=== PATIENT | male | born 1985 | race Caucasian/White ===

== ENCOUNTER → 2017-08-03 11:35 | Outpatient (CLI) | payer OTHER, SELFPAY ==
[2017-08-03 14:30] LABS: Hematocrit 50.9 % (40-54); Hemoglobin 17.5 g/dl (13.0-16.5); Mean Corp Hgb Conc 34.4 g/gl (32-36); Mean Corpuscular Hgb 29.3 pg (27.0-32.0); Mean Corpuscular Volume 85.1 fL (80-94); Mean Platelet Vol. 9.9 fl (6.2-12.0); Platelet Count 237 K/mm3 (150-450); RBC Distribution Width CV 13.2 % (11.6-14.6); RBC Distribution Width SD 40.9 fl (35.1-43.9); Red Blood Count 5.98 M/mm3 (4.6-6.2); White Blood Count 6.6 K/mm3 (4.4-11.0)
[2017-08-03 14:31] LABS: Scan Indicated on CBC? Y/N NO
[2017-08-03 14:59] LABS: ALB/GLOB Ratio 1.2 RATIO (0.9-2.4); AST(SGOT) 15 U/L (15-37); Alanine Aminotransfer ALT/SGPT 15 U/L (16-61); Alkaline Phosphatase 68 U/L (45-117); Anion Gap 4 (5-15); BUN 17 mg/dL (7-18); BUN/Creat Ratio 11.5 RATIO (10-20); Calcium,Total 8.8 mg/dL (8.5-10.1); Chloride 104 mmol/L (98-107); Cholesterol 147 mg/dL (200); Creatinine, Serum 1.48 mg/dL (0.70-1.30); EST Glomerular Filtration Rate 58 mL/min (>60); Est Glom Filt Rate - Afr Amer 70 mL/min (>60); Estradiol < 11.0 pg/mL; Follicle Stimulating Hormone < 0.2 mIU/mL; Free T3 3.3 pg/mL (2.18-3.98); Globulin 3.4 g/dL (2.2-4.2); Glucose 75 mg/dL (74-106); High Density Lipoprotein 28 mg/dL; Luteinizing Hormone < 0.2 mIU/mL; PSA,Total - Annual Screen 1.08 ng/mL (0.00-4.00); Protein, Total 7.4 g/dL (6.4-8.2); Sodium Level 138 mmol/L (136-145); T4 Free Direct 0.92 ng/dL (0.76-1.46); Triglycerides 166 mg/dL; Very Low Density Lipoprotein 33 mg/dL (5-40)
[2017-08-09 14:07] LABS: DHEA Sulfate 366.1 ug/dL (138.5-475.2); Testosterone, % Free 4.42 % (1.50-4.20)
[2017-08-10 09:26] LABS: Insulin Like Growth Factor 189 ng/mL (88-246); Testosterone, Total 923 ng/dL (264-916)
== END ==
PROVIDERS: Family Provider Family Medicine; PCP Family Medicine
DX: E34.9 Endocrine disorder, unspecified (principal)
CPT/HCPCS: 36415; 80053; 80061; 82627; 82670; 83001; 83002; 84153; 84305; 84402; 84403; 84439; 84443; 84481; 85027; 82626; G0103

== ENCOUNTER → 2018-04-17 10:22 | Outpatient (CLI) | payer OTHER, SELFPAY ==
[2018-04-17 12:04] LABS: Hematocrit 52.7 % (40-54); Hemoglobin 17.8 g/dl (13.0-16.5); Mean Corp Hgb Conc 33.8 g/gl (32-36); Mean Corpuscular Hgb 28.9 pg (27.0-32.0); Mean Corpuscular Volume 85.6 fL (80-94); Mean Platelet Vol. 9.6 fl (6.2-12.0); Platelet Count 246 K/mm3 (150-450); RBC Distribution Width CV 13.2 % (11.6-14.6); RBC Distribution Width SD 40.8 fl (35.1-43.9); Red Blood Count 6.16 M/mm3 (4.6-6.2); White Blood Count 8.3 K/mm3 (4.4-11.0)
[2018-04-17 12:05] LABS: Scan Indicated on CBC? Y/N NO
[2018-04-17 12:34] LABS: ALB/GLOB Ratio 1.1 RATIO (0.9-2.4); AST(SGOT) 25 U/L (15-37); Alanine Aminotransfer ALT/SGPT 21 U/L (16-61); Albumin, Serum 3.9 g/dL (3.2-5.0); Alkaline Phosphatase 68 U/L (45-117); Anion Gap 6 (5-15); BUN 18 mg/dL (7-18); BUN/Creat Ratio 11.3 RATIO (10-20); Calcium,Total 8.3 mg/dL (8.5-10.1); Chloride 106 mmol/L (98-107); Creatinine, Serum 1.59 mg/dL (0.70-1.30); EST Glomerular Filtration Rate 53 mL/min (>60); Est Glom Filt Rate - Afr Amer 65 mL/min (>60); Estradiol 37.7 pg/mL; Globulin 3.6 g/dL (2.2-4.2); Glucose 72 mg/dL (74-106); PSA,Total - Annual Screen 1.12 ng/mL (0.00-4.00); Potassium 3.9 mmol/L (3.5-5.1); Protein, Total 7.5 g/dL (6.4-8.2); Sodium Level 139 mmol/L (136-145)
[2018-04-23 09:07] LABS: Insulin Like Growth Factor 194 ng/mL (88-246); Testosterone, % Free 5.37 % (1.50-4.20); Testosterone, Free 40.76 ng/dL (5.00-21.00)
[2018-04-23 11:10] LABS: Sex Hormone-binding Globulin 12.3 nmol/L (16.5-55.9); Testosterone, Total 759 ng/dL (264-916)
== END ==
PROVIDERS: Family Provider Family Medicine; PCP Family Medicine
DX: E29.1 Testicular hypofunction (principal)
CPT/HCPCS: 36415; 80053; 82627; 82670; 84153; 84270; 84305; 84402; 84403; 85027; 82626; G0103

== ENCOUNTER → 2019-01-10 08:33 | Outpatient (CLI) | payer OTHER, SELFPAY ==
[2019-01-10 10:13] LABS: Homocysteine 7.6 umol/L (3.2-10.7)
[2019-01-10 10:15] LABS: Hematocrit 52.4 % (40-54); Hemoglobin 17.8 g/dL (13.0-16.5); Mean Corpuscular Hgb 28.6 pg (27.0-32.0); Mean Corpuscular Volume 84.2 fL (80-94); Mean Platelet Vol. 9.3 fl (6.2-12.0); Platelet Count 214 K/mm3 (150-450); RBC Distribution Width CV 12.4 % (11.6-14.6); RBC Distribution Width SD 37.7 fl (35.1-43.9); Red Blood Count 6.22 M/mm3 (4.6-6.2); White Blood Count 6.3 K/mm3 (4.4-11.0)
[2019-01-10 10:39] LABS: Hemoglobin A1c 5.4 % (4.2-6.3)
[2019-01-10 10:45] LABS: Progesterone Level 0.59 ng/mL (See Comment); Vitamin B12 918 pg/mL (211-911); Vitamin D,25 Hydroxy 24.5 ng/mL (29.95-100.01)
[2019-01-10 11:52] LABS: ALB/GLOB Ratio 1.1 RATIO (0.9-2.4); AST(SGOT) 13 U/L (15-37); Alanine Aminotransfer ALT/SGPT 15 U/L (16-61); Albumin, Serum 3.9 g/dL (3.2-5.0); Alkaline Phosphatase 61 U/L (45-117); Anion Gap 9 (5-15); BUN 13 mg/dL (7-18); BUN/Creat Ratio 8.9 RATIO (10-20); Calcium,Total 8.6 mg/dL (8.5-10.1); Chloride 105 mmol/L (98-107); Cholesterol 177 mg/dL (200); Creatinine, Serum 1.46 mg/dL (0.70-1.30); EST Glomerular Filtration Rate 59 mL/min (>60); Est Glom Filt Rate - Afr Amer 71 mL/min (>60); Estradiol 14.2 pg/mL; Follicle Stimulating Hormone < 0.2 mIU/mL; Free T3 3.6 pg/mL (2.18-3.98); Globulin 3.4 g/dL (2.2-4.2); Glucose 102 mg/dL (74-106); High Density Lipoprotein 34 mg/dL; Iron 103 ug/dL (65-175); Luteinizing Hormone < 0.2 mIU/mL; Magnesium 2.3 mg/dL (1.6-2.6); PSA,Total - Annual Screen 1.02 ng/mL (0.00-4.00); Potassium 4.1 mmol/L (3.5-5.1); Prolactin 11.2 ng/mL; Protein, Total 7.3 g/dL (6.4-8.2); Sodium Level 140 mmol/L (136-145); T4 Total, Thyroxin 6.9 ug/dL (4.5-12.1); Thyroid Stim Hormone (TSH) 1.18 uIU/mL (0.358-3.74); Triglycerides 109 mg/dL; Very Low Density Lipoprotein 22 mg/dL (5-40)
[2019-01-13 12:07] LABS: Insulin Like Growth Factor 186 ng/mL (88-246); Testosterone, % Free 4.63 % (1.50-4.20)
[2019-01-14 12:48] LABS: Sex Hormone-binding Globulin 11.2 nmol/L (16.5-55.9); Testosterone, Total 594 ng/dL (264-916)
== END ==
DX: R53.82 Chronic fatigue, unspecified (principal); M62.81 Muscle weakness (generalized); E66.9 Obesity, unspecified
CPT/HCPCS: 36415; 80053; 80061; 82306; 82533; 82607; 82627; 82670; 82746; 83001; 83002; 83036; 83090; 83540; 83735; 84144; 84146; 84153; 84270; 84305; 84402; 84403; 84436; 84439; 84443; 84481; 85027; 86140; 86141; 82626; G0103

== ENCOUNTER → 2020-03-09 13:23 | Outpatient (CLI) | payer OTHER, SELFPAY ==
--- NOTE | 2020-03-09 13:27 | CT_ITS ---
STUDY: CT ABDOMEN AND PELVIS WITH CONTRAST REASON FOR EXAM: Male, 34 years old. 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 Oral and amp; IV Gastrografin and amp; 100mL Isovue-300 was administered. Sagittal and coronal images were reconstructed. Individualized dose optimization techniques were used for this CT. COMPARISON: None. FINDINGS: The visualized lung bases are unremarkable. The visualized portions of the heart are within normal limits. Normal liver. Normal gallbladder and extrahepatic biliary system. Normal spleen. Normal pancreas. Normal bilateral adrenal glands. Normal right kidney. Normal left kidney. Normal visualized stomach. Normal small intestine. Normal colon. The appendix is visualized and appears normal. Normal abdominal aorta. Normal inferior vena cava. Normal retroperitoneum. Normal urinary bladder. FOOT SETTER shunt catheter seen extending to the pelvis. There is omentum fat stranding in the lower abdomen and pelvis may represent peritonitis. Normal abdominal wall. Normal osseous structures. CT/Abdomen/Pelvis WITH Contrast IMPRESSION: There is omentum fat stranding in the lower abdomen and pelvis may represent peritonitis. Electronically Signed: Maria C Stock, at 16:07 EST Tel , Service support ,
[2020-03-09 13:34] LABS: Absolute Lymphocyte Count 2.37 X10^3/uL (0.83-4.51); Absolute Neutrophil Count 5.4 X10^3/uL (2.0-7.7); Basophil# 0.06 X10^3/uL; Basophil% 0.7 % (0-1); Eosinophil# 0.27 X10^3/uL; Hematocrit 51.1 % (40-54); Hemoglobin 16.9 g/dL (13.0-16.5); Lymphocyte # 2.37 X10^3/ul (4.0); Lymphocyte % 26.5 % (19-41); Mean Corp Hgb Conc 33.1 g/dL (32-36); Mean Corpuscular Volume 84.7 fL (80-94); Mean Platelet Vol. 9.2 fl (6.2-12.0); Monocyte# 0.84 X10^3/uL; Monocyte% 9.4 % (0-10); NRBC Flagged by Analyzer 0 % (0-5); Neutrophil # 5.36 X10^3/uL (2.7-7.7); Neutrophil % 60.1 % (47-70); Platelet Count 256 K/mm3 (150-450); RBC Distribution Width CV 12.6 % (11.6-14.6); RBC Distribution Width SD 38.1 fl (35.1-43.9); Red Blood Count 6.03 M/mm3 (4.6-6.2); White Blood Count 8.9 K/mm3 (4.4-11.0)
[2020-03-09 13:55] LABS: ALB/GLOB Ratio 1.1 RATIO (0.9-2.4); AST(SGOT) 16 U/L (15-37); Alanine Aminotransfer ALT/SGPT 17 U/L (16-61); Albumin, Serum 3.9 g/dL (3.2-5.0); Alkaline Phosphatase 75 U/L (45-117); Anion Gap 6 (5-15); BUN 15 mg/dL (7-18); BUN/Creat Ratio 9.6 RATIO (10-20); Calcium,Total 8.6 mg/dL (8.5-10.1); Chloride 101 mmol/L (98-107); Creatinine, Serum 1.56 mg/dL (0.70-1.30); EST Glomerular Filtration Rate 54 mL/min (>60); Est Glom Filt Rate - Afr Amer 65 mL/min (>60); Globulin 3.6 g/dL (2.2-4.2); Glucose 136 mg/dL (74-106); Potassium 3.7 mmol/L (3.5-5.1); Protein, Total 7.5 g/dL (6.4-8.2); Sodium Level 137 mmol/L (136-145)
== END ==
PROVIDERS: PCP Family Medicine; Referring Provider Family Medicine; Visit Provider Family Medicine
DX: R10.32 Left lower quadrant pain (principal)
CPT/HCPCS: 36415; 74177; 80053; 85025; 86140; Q9967

== ENCOUNTER → 2020-03-12 10:42 | Outpatient (CLI) | payer OTHER, SELFPAY ==
[2020-03-12 12:22] LABS: Absolute Lymphocyte Count 1.53 X10^3/uL (0.83-4.51); Absolute Neutrophil Count 3.4 X10^3/uL (2.0-7.7); Basophil# 0.04 X10^3/uL; Basophil% 0.7 % (0-1); Eosinophil# 0.31 X10^3/uL; Eosinophils% 5.4 % (0-5); Hematocrit 50.9 % (40-54); Hemoglobin 16.8 g/dL (13.0-16.5); Lymphocyte # 1.53 X10^3/ul (4.0); Lymphocyte % 26.4 % (19-41); Mean Corpuscular Hgb 27.9 pg (27.0-32.0); Mean Corpuscular Volume 84.6 fL (80-94); Mean Platelet Vol. 9.1 fl (6.2-12.0); Monocyte# 0.51 X10^3/uL; Monocyte% 8.8 % (0-10); NRBC Flagged by Analyzer 0 % (0-5); Neutrophil # 3.38 X10^3/uL (2.7-7.7); Neutrophil % 58.4 % (47-70); Platelet Count 286 K/mm3 (150-450); RBC Distribution Width CV 12.3 % (11.6-14.6); RBC Distribution Width SD 37.5 fl (35.1-43.9); Red Blood Count 6.02 M/mm3 (4.6-6.2); White Blood Count 5.8 K/mm3 (4.4-11.0)
[2020-03-12 12:34] LABS: AST(SGOT) 15 U/L (15-37); Alanine Aminotransfer ALT/SGPT 16 U/L (16-61); Albumin, Serum 3.8 g/dL (3.2-5.0); Alkaline Phosphatase 76 U/L (45-117); Anion Gap 3 (5-15); BUN 14 mg/dL (7-18); BUN/Creat Ratio 8.4 RATIO (10-20); Chloride 104 mmol/L (98-107); Creatinine, Serum 1.67 mg/dL (0.70-1.30); EST Glomerular Filtration Rate 50 mL/min (>60); Est Glom Filt Rate - Afr Amer 60 mL/min (>60); Globulin 3.7 g/dL (2.2-4.2); Glucose 58 mg/dL (74-106); Potassium 3.9 mmol/L (3.5-5.1); Protein, Total 7.5 g/dL (6.4-8.2); Sodium Level 138 mmol/L (136-145)
== END ==
PROVIDERS: PCP Family Medicine; Visit Provider Family Medicine
DX: R10.9 Unspecified abdominal pain (principal)
CPT/HCPCS: 36415; 80053; 85025

== ENCOUNTER → 2020-03-12 11:26 | Outpatient (CLI) | payer OTHER, SELFPAY ==
--- NOTE | 2020-03-12 11:27 | CT_ITS ---
STUDY: CT ABDOMEN AND PELVIS WITH CONTRAST REASON FOR EXAM: Male, 34 years old. ABSCESS. POSS PERITONITIS 03/09/20 RADIATION DOSAGE (If Supplied By Facility): CTDIvol = ( 15.16 ) mGy, DLP = ( 1304.38 ) mGycm TECHNIQUE: Transaxial images were obtained from the dome of the diaphragm to the symphysis pubis with oral contrast. Oral and amp;amp; IV Gastrografin and amp;amp; 100mL Isovue-370 was administered. Sagittal and coronal images were reconstructed. Individualized dose optimization techniques were used for this CT. COMPARISON: 03/09/2020 FINDINGS: The visualized lung bases are unremarkable. The visualized portions of the heart are within normal limits. Right-sided ventricular peritoneal shunt terminates in right side of the pelvis without evidence of pseudocyst. No ascites. There is a decrease in the stranding of the fat in the anterior aspect of the pelvis when compared with prior study. No loculated fluid collection to suggest abscess. Normal liver. Normal gallbladder and extrahepatic biliary system. Normal spleen. Normal pancreas. Normal bilateral adrenal glands. Normal right kidney. Normal left kidney. Normal visualized stomach. Normal small intestine. Normal colon. The appendix is visualized and appears normal. Normal abdominal aorta. Normal inferior vena cava. Normal retroperitoneum. Normal urinary bladder. Normal abdominal wall. Normal osseous structures. CT/Abdomen/Pelvis WITH Contrast IMPRESSION: Normal enhanced CT of the abdomen and pelvis. No CT evidence of abscess. Electronically Signed: Deny Duenas MD at 14:28 EST Tel , Service support ,
== END ==
PROVIDERS: PCP Family Medicine; Referring Provider Family Medicine; Visit Provider Family Medicine
DX: R10.9 Unspecified abdominal pain (principal)
CPT/HCPCS: 74177; Q9967

== ENCOUNTER 2020-04-07 19:33 | Observation (INO) | payer OTHER, SELFPAY ==
[2020-04-07 19:33] VITALS: BP 143/87; PULSE 96; RESP 16; TEMP 36.6; O2SAT 98; BMI 36.6
--- NOTE | 2020-04-07 19:57 | ED.DCSUM_ITS ---
History of Present Illness Chief Complaint: Abd Pain Informant: Patient Narrative: Patient is a 34-year-old male who presents to emerge department for right lower quadrant abdominal pain. He states he has been having diffuse abdominal pain over the past 4 weeks. He actually had a few CT scans of his abdomen. He talked to his PCP today who referred him to the emergency department to be evaluated for appendicitis. He denies ever having this pain in the right lower quadrant. He feels like it is radiating down to his testicle. He has never had any kidney stones. Denies any urinary symptoms. No change in bowel habits. No nausea or vomiting. He states he has not had an appetite today. At rest he currently rates the pain as 4-5. With any palpation of the area does get up to a 10 out of 10. He has not tried taking anything for this. He denies any fevers or chills. 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 Past Medical History - Allergies and Home Meds Allergies/Adverse Reactions: Allergies ibuprofen Adverse Reaction (Verified 04/07/20 19:36) Other ULCERS IN/ON MOUTH AND PENIS Prior records reviewed: Yes Past Medical History: - - Traumatic head injury Smoking Status: Never smoker Review of Systems All systems negative except as indicated General: Denies: Chills, Fever, Sweats Eyes: Denies: Visual changes - bilaterally, Diplopia ENT: Denies: Rhinorrhea, Sore throat Cardiovascular: Denies: Chest pain, Palpitations Respiratory: Denies: Dyspnea, Cough, Dyspnea on exertion Gastrointestinal: Reports: Abdominal pain. Denies: Nausea, Vomiting, Diarrhea, Melena, Hematochezia Genitourinary: Denies: Dysuria, Hematuria, Frequency Musculoskeletal: Denies: Back pain, Extremity Pain Skin: Denies: Rash, Wounds Neurological: Denies: Headache, Weakness, Numbness Physical Exam Vital Signs/Narrative: Vital Signs Temp Pulse Resp BP Pulse Ox 04/07/20 19:33 97.8 F 96 16 143/87 H 98 Inital Vital Signs reviewed: Yes General: Well nourished, Well developed, No Acute Distress Head: Normocephalic, Atraumatic Eyes: Perrl, EOMI ENT: Moist mucous membranes, No rhinorrhea Neck: Supple, Nontender Cardiovascular: Regular rate, Regular rhythm, No murmurs Respiratory: No distress, CTA bilaterally, Chest nontender Abdomen: Soft, Nondistended, Normal bowel sounds, Tender - Right lower quadrant, Rebound tenderness. Negative for: Guarding, Psoas sign, Campuzano's sign Back: Nontender, Normal Inspection. Negative for: CVA tenderness Extremities: Nontender, No edema Skin: Normal color, No rash Neurological: Alert, Oriented x3, Cranial nerves II-XII grossly intact, Normal Strength, Normal Sensation Psychological: Normal affect, Normal Mood Diagnostic/Tx/Re-eval - Medical Decision Making Patient presents to the ED for right lower quadrant pain. He was sent in by his PCP to evaluate for appendicitis. On exam he does have rebound tenderness. CT scan did show a dilated appendix but no obvious acute inflammation surrounding it. Appendix actually does look similar to his previous CT scans. Does not have a high white count. He has been on antibiotic lately which could skew the lab work findings. Given his significant pain and rebound on exam I did contact the general surgeon Dr. Cuevas who came to bedside to evaluate him. At this time he believes that he should go to the OR to have this removed especially with his history of SOUND INSTALLATION WORKER shunt. He does not want to risk having this rupture. Patient is agreeable with this plan. He otherwise has been stable throughout ED stay. ED Disposition - Plan for ED Patient: Disposition: [facility] Diagnosis: Appendicitis, Right lower quadrant abdominal pain, ARLEN (acute kidney injury)
[2020-04-07 20:21] LABS: Bacteria 0 SEEN /hpf (None Seen); Mucous, Urine 0 SEEN /hpf (<or=2+); Red Blood Cells-Urine 0 SEEN /hpf (0-5); Squamous Epithelial Cells - UA 0 SEEN /hpf (0-5); White Blood Cells 0 SEEN /hpf (0-5)
[2020-04-07 20:26] LABS: Color, Urine Yellow (Yellow); Glucose, Dipstick Normal (Normal); Ketone-Dipstick Negative (Negative); Leukocyte Esterase-Dipstick 25 /ul (Negative); Nitrite-Dipstick Negative (Negative); Occult Blood-Urine Negative /ul (Negative); Protein-Dipstick Negative (Negative); Specific Gravity, Urine 1.015 (1.002-1.030); Urine Bilirubin Dipstick Negative (Negative); Urine Clarity Clear (Clear); Urine Urobilinogen Normal (Normal); Urine pH 6.5 (5.0 - 8.0)
[2020-04-07 20:26] LABS: Absolute Lymphocyte Count 2.04 X10^3/uL (0.83-4.51); Absolute Neutrophil Count 5.8 X10^3/uL (2.0-7.7); Basophil# 0.05 X10^3/uL; Basophil% 0.5 % (0-1); Eosinophil# 0.53 X10^3/uL; Eosinophils% 5.8 % (0-5); Hematocrit 48.5 % (40-54); Hemoglobin 16.3 g/dL (13.0-16.5); Lymphocyte # 2.04 X10^3/ul (4.0); Lymphocyte % 22.1 % (19-41); Mean Corp Hgb Conc 33.6 g/dL (32-36); Mean Corpuscular Hgb 27.8 pg (27.0-32.0); Mean Corpuscular Volume 82.6 fL (80-94); Monocyte# 0.72 X10^3/uL; Monocyte% 7.8 % (0-10); NRBC Flagged by Analyzer 0 % (0-5); Neutrophil # 5.84 X10^3/uL (2.7-7.7); Neutrophil % 63.5 % (47-70); Platelet Count 285 K/mm3 (150-450); RBC Distribution Width CV 12.2 % (11.6-14.6); RBC Distribution Width SD 37.3 fl (35.1-43.9); Red Blood Count 5.87 M/mm3 (4.6-6.2); White Blood Count 9.2 K/mm3 (4.4-11.0)
[2020-04-07 20:44] LABS: AST(SGOT) 14 U/L (15-37); Alanine Aminotransfer ALT/SGPT 16 U/L (16-61); Albumin, Serum 3.7 g/dL (3.2-5.0); Alkaline Phosphatase 88 U/L (45-117); Anion Gap 5 (5-15); BUN 18 mg/dL (7-18); BUN/Creat Ratio 9.8 RATIO (10-20); Calcium,Total 8.6 mg/dL (8.5-10.1); Chloride 104 mmol/L (98-107); Creatinine, Serum 1.84 mg/dL (0.70-1.30); EST Glomerular Filtration Rate 45 mL/min (>60); Est Glom Filt Rate - Afr Amer 54 mL/min (>60); Estimated Creatinine Clearance 63.33 ml/min; Globulin 3.8 g/dL (2.2-4.2); Glucose 111 mg/dL (74-106); Lipase 154 U/L (73-393); Potassium 3.8 mmol/L (3.5-5.1); Protein, Total 7.5 g/dL (6.4-8.2); Sodium Level 139 mmol/L (136-145)
--- NOTE | 2020-04-07 20:51 | CT_ITS ---
STUDY: CT ABDOMEN AND PELVIS WITHOUT CONTRAST REASON FOR EXAM: Male, 34 years old. RLQ PAIN X 4 WEEKS, HX OFFICE 365 CONSULTANT SHUNT RADIATION DOSAGE (If Supplied By Facility): CTDIvol = ( 16.59 ) mGy, DLP = ( 957.28 ) mGycm TECHNIQUE: Transaxial images were obtained from the dome of the diaphragm to the symphysis pubis without oral contrast, and without intravenous contrast. Sagittal and coronal images were reconstructed. Individualized dose optimization techniques were used for this CT. COMPARISON: CT of abdomen and pelvis dated March 12, 2020 FINDINGS: OFFICE 365 CONSULTANT shunt catheter seen in the right anterior abdominal wall entering the right mid abdomen region. Mild linear stranding and interstitial edema is present in the mesentery surrounding the bowel loops of the upper mid abdomen which is likely chronic. The appendix is opacified with some residual contrast that was administered on the prior CT of abdomen and pelvis study, and is gaseous distended up to 9.5 mm. However, the appearance is similar to the prior study and no periappendiceal inflammation is seen to suggest an acute process. The visualized lung bases are unremarkable. The visualized portions of the heart are within normal limits. Normal liver. Normal gallbladder and extrahepatic biliary system. Normal spleen. Normal pancreas. Normal bilateral adrenal glands. Normal right kidney. Normal left kidney. Normal visualized stomach. Normal small intestine. Normal colon. Normal abdominal aorta. Normal inferior vena cava. Normal retroperitoneum. Normal urinary bladder. Normal abdominal wall. Normal osseous structures. CT/Abdomen/Pelvis without Cont IMPRESSION: 1. OFFICE 365 CONSULTANT shunt catheter seen in the right anterior abdominal wall entering the right mid abdomen region. Mild linear stranding and interstitial edema is present in the mesentery surrounding the bowel loops of the upper mid abdomen which is likely chronic. 2. The appendix is opacified with some residual contrast that was administered on the prior CT of abdomen and pelvis study, and is gaseous distended up to 9.5 mm. However, the appearance is similar to the prior study and no periappendiceal inflammation is seen to suggest an acute process. Consultation with general surgery for management is recommended. There may be a component of chronic inflammation of the appendix. Electronically Signed: Geremias Burroughs MD at 21:38 EST , Service support ,
[2020-04-07] MEDS: 0.9% Normal Saline 1,000 ML 999 ML IV (21:04)
[2020-04-07 22:27] VITALS: BP 149/83; PULSE 94; RESP 16; O2SAT 98
--- NOTE | 2020-04-07 22:58 | CON.PCM_ITS ---
Problem List (1) Right lower quadrant abdominal pain Status: Acute (2) Acute appendicitis Status: Acute Qualifiers: Acute appendicitis type: with localized peritonitis Appendicitis gangrene presence: without gangrene Appendicitis perforation presence: without perforation Appendicitis abscess presence: without abscess Qualified Code(s): K35.30 - Acute appendicitis with localized peritonitis, without perforation or gangrene Reason for Consult Date of Consultation: 04/07/20 History of Present Illness: Patient is a 34-year-old male who presents to emerge department for right lower quadrant abdominal pain. He states he has been having diffuse abdominal pain over the past 4 weeks. He actually had a few CT scans of his abdomen. He talked to his PCP today who referred him to the emergency department to be evaluated for appendicitis. He denies ever having this pain in the right lower quadrant. He feels like it is radiating down to his testicle. He has never had any kidney stones. Denies any urinary symptoms. No change in bowel habits. No nausea or vomiting. He states he has not had an appetite today. At rest he currently rates the pain as 4-5. With any palpation of the area does get up to a 10 out of 10. He has not tried taking anything for this. He denies any fevers or chills. He does have a history of ASSEMBLER FINGER BUFFS shunt. CAT scan of the abdomen and pelvis showed: IMPRESSION: 1. ASSEMBLER FINGER BUFFS shunt catheter seen in the right anterior abdominal wall entering the right mid abdomen region. Mild linear stranding and interstitial edema is present in the mesentery surrounding the bowel loops of the upper mid abdomen which is likely chronic. 2. The appendix is opacified with some residual contrast that was administered on the prior CT of abdomen and pelvis study, and is gaseous distended up to 9.5 mm. However, the appearance is similar to the prior study and no periappendiceal inflammation is seen to suggest an acute process. Consultation with general surgery for management is recommended. There may be a component of chronic inflammation of the appendix. Past Medical History Allergies ibuprofen Adverse Reaction (Verified 04/07/20 19:36) Other ULCERS IN/ON MOUTH AND PENIS Home Medications: Ambulatory Orders Medication Instructions Recorded Some Kind Of Heart Medicine. 10/09/14 Cefdinir 300 mg PO 04/07/20 traMADol [Ultram (G)] 50 mg PO DAILY 04/07/20 Surgical History: - - Patient has had a ASSEMBLER FINGER BUFFS shunt placed approximately 2 months ago Smoking Status: Never smoker Tobacco Use: Cigarettes Review of Systems Constitutional: Denies: Chills, Fever, Weight Change Cardiovascular: Denies: Chest Pain, Chest Pressure, Chest Tightness, Palpitations Respiratory: Denies: Cough, Hemoptysis, Shortness of breath at rest, Shortness of breath upon exertion, Wheezing Gastrointestinal: Reports: Abdominal Pain - Pain is in the right lower quadrant Patient Problems: Active and Suspected Problems Right lower quadrant abdominal pain (Acute) Acute appendicitis (Acute) - Physical Exam Vitals/I&O's: Vital Signs Temp Pulse Resp BP Pulse Ox 97.8 F 94 16 149/83 H 98 04/07/20 19:33 04/07/20 22:27 04/07/20 22:27 04/07/20 22:27 04/07/20 22:27 Oxygen Delivery Method Room Air Weight: 277 lb 12.519 oz Body Mass Index (BMI) 36.6 Intake and Output for Last 24 Hours 04/05/20 04/06/20 04/07/20 23:59 23:59 23:59 Intake Total 1000 / 1000 Balance 1000 / 1000 General: Alert, Oriented x3 Lungs: Clear to auscultation Cardiovascular: Regular rate, Regular Rhythm, No murmurs Abdomen: Tender - He has right lower quadrant tenderness at McBurney's point with rebound tenderness he has a negative Rovsing sign. He has a negative heeltap sign. Extremities: No clubbing, No cyanosis, No edema Skin: No rashes, No breakdown Laboratory Results 04/07/20 20:00: Urine Color Yellow, Urine Clarity Clear, Urine pH 6.5, Ur Specific [place] 1.015, Urine Protein Negative, Urine Glucose (UA) Normal, Urine Ketones Negative, Urine Occult Blood Negative, Urine Nitrite Negative, Urine Bilirubin Negative, Urine Urobilinogen Normal, Ur Leukocyte Esterase 25 H, Urine RBC 0 SEEN, Urine WBC 0 SEEN, Ur Squamous Epith Cells 0 SEEN, Urine Bacteria 0 SEEN, Urine Mucus 0 SEEN 04/07/20 20:04: WBC 9.2, RBC 5.87, Hgb 16.3, Hct 48.5, MCV 82.6, MCH 27.8, MCHC 33.6, RDW Std Deviation 37.3, RDW Coeff of Sharon 12.2, Plt Count 285, MPV 9.0, Immature Gran % (Auto) 0.300, Neut % (Auto) 63.5, Lymph % (Auto) 22.1, [place] % (Auto) 7.8, Eos % (Auto) 5.8 H, Baso % (Auto) 0.5, Absolute Neuts (auto) 5.8, Absolute Lymphs (auto) 2.04, Nucleated RBC % 0 04/07/20 20:04: Sodium 139, Potassium 3.8, Chloride 104, Carbon Dioxide 30.0, Anion Gap 5, BUN 18, Creatinine 1.84 H, Estim Creat Clear Calc 63.33, Est GFR (MDRD) Af Amer 54 L, Est GFR (MDRD) Non-Af 45 L, BUN/Creatinine Ratio 9.8 L, Glucose 111 H, Calcium 8.6, Total Bilirubin 0.30, AST 14 L, ALT 16, Alkaline Phosphatase 88, Total Protein 7.5, Albumin 3.7, Globulin 3.8, Albumin/Globulin Ratio 1.0, Lipase 154 Assessment/Plan All Active Problems Right lower quadrant abdominal pain (Acute) Acute appendicitis (Acute) At this point I believe he does have an appendicitis. He has what appears to be a retrocecal appendix and what is most remarkable is that he still has contrast located within the appendix although it is been almost a month since his last CAT scan of the abdomen. Which leads me to believe that there is somehow some kind of blockage when I look at the CAT scan his appendix is clearly larger than his last CAT scan. I have explained the operation in terms that he will understand he does understand that bleeding and infection of the most common risk. He also understands though that he could have delayed abscesses which could require further surgeries and there is a chance that he could have injury to surrounding structures. He also understands that blood clots heart attacks pneumonia stroke are a possibility although very small. All questions asked were answered and he is willing to proceed. At the time of this dictation I do not know his Covid status but we will be getting a rapid test on him. Office Visits / Consults: [id number] IP Consult L4 - Modifier 57
[2020-04-07 23:18] VITALS: BP 147/96; PULSE 94; RESP 16; TEMP 37.1; O2SAT 95; BMI 36.6
[2020-04-07 23:22] VITALS: BP 147/96; PULSE 94; RESP 16; TEMP 37.1; O2SAT 97
--- NOTE | 2020-04-07 23:30 | APP_PTH ---
PATIENT: ARSENIO JUAREZ LOC: MS3 U#:[id number] AGE/SX: 34/M ROOM: MS317 RE04/08/[address]: Dr. Niranjan Cuevas MD : 1985 BED: 1 DIS: 04/08/2020 SPEC #: [id number] RECD: 04/08/20 07:27 STATUS: INA REQ #: [id number] ADEOLA: 04/07/20 23:[address]: Niranjan Cuevas DEPT: SURGICAL PATHOLOGY RECD BY: Marleen Mcdowell ENTERED: 04/08/20 08:08 SP TYPE: APPENDIX OTHR DR: Dr. Celestino Rodriges MD Tissues: Appendix, NOS Procedures: Surgery Specimen Level III HEADER OPERATION: Laparoscopic appendectomy PRE-OP DIAGNOSIS: Right lower quadrant abdominal pain; acute appendicitis TISSUE SUBMITTED: Appendix MICROSCOPIC DIAGNOSIS Appendix, appendectomy: Early acute appendicitis with fecal impaction. Distal appendiceal lumen with fibrofatty obliteration. AM:don 04/09/2020 MICROSCOPIC DESCRIPTION Slides are reviewed. GROSS DESCRIPTION Received in fixative is one container labeled with the patient's name and designated appendix. The specimen consists of a vermiform appendix with attached fibrofatty tissue measuring 9 cm in length and varying in diameter from 0.4 to 1.2 cm. No gross perforations are evident. Serial sections reveal fecal impaction. Ballast Regulator Operator sections are submitted in one cassette. / AM:don 04/08/20 TC:2 CPT: 98684
--- NOTE | 2020-04-07 23:48 | OP.PCM_ITS ---
Problem List (1) Right lower quadrant abdominal pain Status: Acute (2) Acute appendicitis Status: Acute Qualifiers: Acute appendicitis type: with localized peritonitis Appendicitis gangrene presence: without gangrene Appendicitis perforation presence: without perforation Appendicitis abscess presence: without abscess Qualified Code(s): K35.30 - Acute appendicitis with localized peritonitis, without perforation or gangrene Report of Operation Date of Procedure: 04/07/20 Pre-Operative Diagnosis: Acute appendicitis Post-Operative Diagnosis: Same Surgery/Procedure Performed:: Laparoscopic appendectomy Type of Anesthesia:: General Anesthesiologist: Brielle Bonds Specimen's removed: Appendix Estimated Blood Loss (mL): < 25 cc Description of Procedure: Patient was brought into the operating room. Placed in the supine position. Under excellent general trach intubation the abdomen was sterilely prepped and draped in usual fashion. Local was injected infraumbilically. Curvilinear incision was made. Dissection was carried down to the fascia. The fascia was grasped with a Saúl. Varies needle was placed inside the abdomen. The abdomen was insufflated 15 torr. A 10/12 trocar was placed without difficulty. As I got into the abdomen it was clear that there was some inflammatory process going on but it looked old and it looked chronic and I have a feeling it was directly related to his peritoneal shunt he had some significant adhesions in the lower left quadrant but I was able to place a stitch suprapubic #5 trocar and I decided to go superiorly and place another #5 trocar both of these under direct visualization without injury to underlying structures. Patient was placed in the headdown and rotated to the left position. Patient was noted to have an acute inflammatory appendix that had not ruptured yet. I was able to grasp this I came down on the mesoappendix with an Enseal I then transected the base of the appendix with a 45 linear cutter. I had excellent hemostasis. I placed a specimen a specimen bag and delivered through the umbilical port without difficulty. I irrigated the pelvis right lower quadrant good in the stasis was noted peritoneal shunt was identified it looked good it was freely floating there was no pus in the upper abdomen or in the pelvis. The small bowel appeared normal. I remove the trochars under direct visualization good in the stasis was noted. I closed the fascia the umbilical port with a [id number] stitch of 0 Vicryl. Skin incisions were closed with subcuticular stitches of 4- 0 Monocryl. Steri-Strips were applied sterile dressings were applied and the patient tolerated the procedure well. Inspection of the appendix showed acute inflammatory appendicitis with a fecalith located within the appendix itself. - Admit VTE Documentation VTE Present on Admission: No VTE Mechan Device Prophylaxis: SCD's VTE Pharm Prophylaxis ordered?: No Reason prophylaxis not ordered:: Treatment Not Indicated [id number]: [id number] Laparoscopy appendectomy
--- NOTE | 2020-04-07 23:50 | PCM.DC.APPY ---
Discharge Diet: Light diet - advance as tolerated - if you have questions about your diet instructions, please talk to you doctor. Discharge Activity: May Not Drive - for 3-5 days or while taking narcotic pain meds. May shower in (days): 1 Call your doctor if your incision/area has: Continuous Slow Oozing, Sudden Increased Bleeding, Increased Pain/ Swelling, Increased Redness, Foul Smelling Discharge Call your doctor if you observe: Fever of 101 or Higher Suture Line Care: Avoid Pulling/Pushing, Avoid Pinching/Bending Additional Dressing/Incision Instructions:: Keep dressing clean and dry. Change or remove dressing in 2 days. Leave steri strips for 1 week. May protect with a gauze bandaid. Medications to take at Discharge Some Kind Of Heart Medicine. 10/09/14 Cefdinir 300 mg PO DAILY 04/07/20 traMADol [Ultram (G)] 50 mg PO DAILY 04/07/20 traMADol [Ultram] 50 mg PO Q6H PRN PRN 6 Days #20 tablet 04/07/20 Allergies/Adverse Reactions: Allergies ibuprofen Adverse Reaction (Verified 04/07/20 19:36) Other ULCERS IN/ON MOUTH AND PENIS The following prescriptions were given: traMADol [Ultram] 50 mg PO Q6H PRN PRN 6 Days #20 tablet PRN Reason: Pain 1-10 Or Fever Transmission Status: Sent to [facility]/pharmacy #[id number] Primary Care Physician: Celestino Rodriges MD [Primary Care Provider] - Test Results: Test results from this visit will be discussed in further detail at your follow-up appointment, if applicable. Please Follow Up With: Niranjan Cuevas MD - [phone] When: Call to make a follow up appointment with your doctor in 1 week.
[2020-04-08] VITALS (8 sets, daily range): BP systolic 100–170; BP diastolic 61–107; PULSE 84–109; RESP 14–16; TEMP 36.3–37; O2SAT 85–98; BMI 36.9
[2020-04-08] MEDS: Bupivacaine Mpf 0.5% 30 ML VIAL (00:04)
--- NOTE | 2020-04-08 01:38 | PN_ITS ---
Patient Problems: Active and Suspected Problems Right lower quadrant abdominal pain (Acute) Acute appendicitis (Acute) Appendicitis (Acute) ARLEN (acute kidney injury) (Acute) Subjective: The patient is a 34 y/o M w/ PMHx: BETSY, Obesity, Hx Hypogonadism, Hx arachnoid cyst s/p intervention with SALICYLIC ACID BLENDER shunt placement, CKD stage II, Chronic neuropathy who presented to the [facility] ED on 04/07/20 with history of ongoing RLQ severe pain, progressively worsening over the last 4 weeks, initially more dull and diffuse eventually concentrating in the RLQ with sensation of radiation to his R testicle with poor appetite associated, pain rated 4-5/10 upon ED presentation but with evaluation it increases to 10/10. He denies any associated fever, c hills, nausea, emesis, alteration to his stool or urination patterns. Work-up in the ED included T 97.8, heart rate 96, BP 143/87, respiratory rate 16, 98% on room air, CBC with WC 9.2, hemoglobin 16.3, platelet 25 without marked shift, CMP with BUN/creatinine 18/1.84, glucose 111, unremarkable hepatic profile, lipase 154, urinalysis unremarkable appearing, CT abdomen and pelvis with noted SALICYLIC ACID BLENDER shunt catheter seen in the right anterior abdominal wall entering the right mid abdominal region with mild linear stranding and interstitial edema present in the mesentery surrounding the bowel loops of the upper mid abdomen reportedly possibly chronic, appendix opacified with some residual contrast likely administered on prior CT of the abdomen pelvis study and is gaseous distended up to 9.5 mm however however appearance similar to prior study with no periappendiceal inflammation with possibly a component of chronic inflammation of the appendix. Most recent CT abdomen and pelvis imaging on 03/09/2020 with repeat following on 03/12/2020. In the ED patient ministered normal saline. Patient eventually admitted to the medical surgical floor per Dr. Cuevas and taken to the OR on 04/08/2019 early a.m. with findings consistent with acute appendicitis now status post laparoscopic appendectomy. In the PACU patient with mildly elevated blood pressures therefore medical service consulted. Evelyn cortés is currently pain improved since initial ED presentation but states he is not exactly sure the level or the severity as he is not moved. Per discussion with PACU staff he was very irritable and noted significant intentions to leave as soon as he could walk. Patient denies fevers, chills, nausea, emesis, chest pain or dyspnea. Medical history: BETSY, obesity, history of hypogonadism, history arachnoid cyst, chronic kidney disease stage II per review of prior labs, chronic neuropathy. Surgical history: Status post SALICYLIC ACID BLENDER shunt. Family history: Patient denies any market maternal or paternal family history including heart disease, diabetes, cancer. Social history: Patient lives with his and 4 young children, denies any tobacco or alcohol use. Allergies: Ibuprofen Medications: Cefdinir 300 mg p.o. daily, tramadol 500 mg p.o. every 6 hours as needed pain. Objective: Physical Examination: General: awake, alert, oriented x 3 and cooperative, seated upright in the PACU bed in no apparent distress, currently calm but per discussion with PACU staff patient initially been very agitated. Skin: normal color, turgor, no icterus, cyanosis except noted incisions with dressings in place status post laparoscopic appendectomy, no significant drainage noted. HEENT: AT/NC, EOMI, PERRLA, MMM, no carotid bruits or JVD noted. Lungs: CTA bilaterally, moderate effort, mild decrease BL bases, no rales, ronchi or wheezing. Heart: Mildly tachycardic with regular rhythm; no gallop, rub audible. Abdomen: soft, obese, expected tenderness palpation especially given recent OR, dressings in place as noted with no significant drainage, expected moderate distention, decreased distant bowel sounds, unable to discern HSM secondary to acute presentation with recent OR with pain. Extremities: no cyanosis, clubbing, or edema. Neurological: patient awake, alert, oriented as noted; cognitive function appears to be improving, currently suspect near baseline intact, fatigued but answering questions and acting currently appropriately, was agitated previously per discussion with PACU staff; pupils equally reactive to light and accomodation; cranial nerves II-XII grossly normal, moving all 4 extremities, no focal deficits, strength moderately to severely global decreased given recent OR and anesthetics. Psychiatric: affect appears flat, fatigued, currently more calm as PACU had noted patient was very irritable previously, no acute evidence of depressive or anxiety feelings. Vitals/I&O's: Vital Signs Temp Pulse Resp BP Pulse Ox 97.8 F 94 16 160/107 H 95 04/08/20 01:15 04/08/20 01:15 04/08/20 01:15 04/08/20 01:15 04/08/20 01:15 Oxygen Flow Rate (L/min) 2 Oxygen Delivery Method Nasal Cannula Weight: 277 lb 12.519 oz Body Mass Index (BMI) 36.6 Intake and Output for Last 24 Hours 04/06/20 04/07/20 04/08/20 23:59 23:59 23:59 Intake Total 1000 / 1000 50 / 50 Balance 1000 / 1000 50 / 50 Microbiology Past 72 Hours 04/07/20 23:10 Mucosa - Nose SARS-CoV-2 Antigen (Rapid) - Final Laboratory Results 04/07/20 20:00: Urine Color Yellow, Urine Clarity Clear, Urine pH 6.5, Ur Specific [place] 1.015, Urine Protein Negative, Urine Glucose (UA) Normal, Urine Ketones Negative, Urine Occult Blood Negative, Urine Nitrite Negative, Urine Bilirubin Negative, Urine Urobilinogen Normal, Ur Leukocyte Esterase 25 H, Urine RBC 0 SEEN, Urine WBC 0 SEEN, Ur Squamous Epith Cells 0 SEEN, Urine Bacteria 0 SEEN, Urine Mucus 0 SEEN 04/07/20 20:04: WBC 9.2, RBC 5.87, Hgb 16.3, Hct 48.5, MCV 82.6, MCH 27.8, MCHC 33.6, RDW Std Deviation 37.3, RDW Coeff of [place] 12.2, Plt Count 285, MPV 9.0, Immature Gran % (Auto) 0.300, Neut % (Auto) 63.5, Lymph % (Auto) 22.1, [place] % (Auto) 7.8, Eos % (Auto) 5.8 H, Baso % (Auto) 0.5, Absolute Neuts (auto) 5.8, Absolute Lymphs (auto) 2.04, Nucleated RBC % 0 04/07/20 20:04: Sodium 139, Potassium 3.8, Chloride 104, Carbon Dioxide 30.0, Anion Gap 5, BUN 18, Creatinine 1.84 H, Estim Creat Clear Calc 63.33, Est GFR (MDRD) Af Amer 54 L, Est GFR (MDRD) Non-Af 45 L, BUN/Creatinine Ratio 9.8 L, Glucose 111 H, Calcium 8.6, Total Bilirubin 0.30, AST 14 L, ALT 16, Alkaline Phosphatase 88, Total Protein 7.5, Albumin 3.7, Globulin 3.8, Albumin/Globulin Ratio 1.0, Lipase 154 Current Medications Acetaminophen (Acetaminophen 325 Mg Tablet) 650 mg PO Q6H PRN PRN PRN Reason: Pain Score 1-10 Hydromorphone HCl (Hydromorphone 0.5 Mg/0.5 Ml Syringe) 0.5 - 1 mg IV Q2H PRN PRN PRN Reason: Pain Score 1-10 Hydromorphone HCl (Hydromorphone 1 Mg/Ml Syringe) 0.5 - 1 mg IV Q2H PRN PRN PRN Reason: Pain Score 1-10 Sodium Chloride () 1,000 mls @ 100 mls/hr IV .Q10H JIL Piperacillin Sod/Tazobactam (Sod 3.375 gm/ Sodium Chloride) 50 mls @ 12.5 mls/hr IV Q8 JIL Ondansetron HCl (Ondansetron 4 Mg/2 Ml Vial) 4 mg IV Q8H PRN PRN PRN Reason: NAUSEA Tramadol HCl (Tramadol 50 Mg Tablet) 50 mg PO Q6H PRN PRN PRN Reason: Pain Score 1-10 STROKE Vital Signs/Narrative: Vital Signs Temp Pulse Resp BP Pulse Ox 04/08/20 01:15 97.8 F 94 16 160/107 H 95 04/08/20 01:00 104 H 16 164/104 H 92 04/08/20 00:45 97.4 F L 109 H 16 170/102 H 85 04/07/20 23:22 98.8 F 94 16 147/96 H 97 04/07/20 23:18 98.8 F 94 16 147/96 H 95 04/07/20 22:27 94 16 149/83 H 98 Medical Necessity - Tobacco Use Smoking Status: Never smoker Tobacco Use: Cigarettes Assessment/Plan All Active Problems Right lower quadrant abdominal pain (Acute) Acute appendicitis (Acute) Appendicitis (Acute) ARLEN (acute kidney injury) (Acute) The patient is a 34 y/o M w/ PMHx: BETSY, Obesity, Hx Hypogonadism, Hx arachnoid cyst s/p intervention with SALICYLIC ACID BLENDER shunt placement, CKD stage II, Chronic neuropathy who presents to the [facility] ED on 04/07/20 with history of ongoing RLQ severe pain, progressively worsening over the last 4 weeks, initially more dull and diffuse eventually concentrating in the RLQ status post 04/08/2020 appendectomy with findings consistent with acute appendicitis. 1. Acute intractable right lower quadrant pain secondary to acute appendicitis: CT abdomen and pelvis with noted SALICYLIC ACID BLENDER shunt catheter seen in the right anterior abdominal wall entering the right mid abdominal region with mild linear stranding and interstitial edema present in the mesentery surrounding the bowel loops of the upper mid abdomen reportedly possibly chronic, appendix opacified with some residual contrast likely administered on prior CT of the abdomen pelvis study and is gaseous distended up to 9.5 mm however however appearance similar to prior study with no periappendiceal inflammation with possibly a component of chronic inflammation of the appendix. Patient admitted to medical surgical floor per primary physician Dr. Cuevas, status post OR 04/08/2020 status post laparoscopic appendectomy for acute appendicitis, diet, antiemetics, pain regimen per primary service discretion. 2. Elevated BP without hypertensive diagnosis: Patient with elevated BPs in the PACU with systolics 140s and diastolics 90-100, concern per primary service with consultation to medical service, will have as needed IV hydralazine especially given recent OR, add oral regimen if becomes appropriate, in the interim as needed agents only. 3. Chronic Kidney Disease Stage II with Acute Renal Insufficiency secondary to #1: Admission BUN/Cr 18/1.84, baseline renal function appears to be 1.4-1.6, most recently 03/12/2020 1.67, has been steadily increasing since 2016 per review but again these are only points in time, continue judicious hydration with planned repeat BMP in AM. 4. History of arachnoid cyst: s/p SALICYLIC ACID BLENDER shunt prior, encourage continued routine follow-up with his neurologist/neurosurgeon per their discretion. 5. History of hypogonadism: Patient previously on testosterone supplementation per review of medication records. Encourage continued outpatient follow-up. 6. BETSY: Patient admits to BETSY history but denies any usage of CPAP or BiPAP. 7. DVT prophylaxis: SCDs, defer chemoprophylaxis given pending surgery intervention. Inpatient E&M: [id number] [facility] L3
[2020-04-08] MEDS: 0.9% Normal Saline 1,000 ML 100 ML IV (01:46)
[2020-04-08] MEDS: HYDROmorphone 1 MG/ML Syringe IV (02:25)
[2020-04-08] MEDS: 0.9% Saline Lock 10 ML Syringe IV (05:56)
[2020-04-08] MEDS: HYDROmorphone 0.5 MG/0.5 ML SYRINGE IV (05:56)
[2020-04-08 06:56] LABS: Absolute Lymphocyte Count 0.59 X10^3/uL (0.83-4.51); Absolute Neutrophil Count 5.4 X10^3/uL (2.0-7.7); Basophil# 0.02 X10^3/uL; Basophil% 0.3 % (0-1); Eosinophil# 0.01 X10^3/uL; Eosinophils% 0.2 % (0-5); Hematocrit 49.7 % (40-54); Hemoglobin 16.4 g/dL (13.0-16.5); Lymphocyte # 0.59 X10^3/ul (4.0); Lymphocyte % 9.7 % (19-41); Mean Corpuscular Volume 81.9 fL (80-94); Mean Platelet Vol. 8.8 fl (6.2-12.0); Monocyte# 0.06 X10^3/uL; NRBC Flagged by Analyzer 0 % (0-5); Neutrophil # 5.38 X10^3/uL (2.7-7.7); Neutrophil % 88.6 % (47-70); POSITIVE DIFFERENTIAL YES; Platelet Count 265 K/mm3 (150-450); RBC Distribution Width CV 12.1 % (11.6-14.6); RBC Distribution Width SD 36.4 fl (35.1-43.9); Red Blood Count 6.07 M/mm3 (4.6-6.2); White Blood Count 6.1 K/mm3 (4.4-11.0)
[2020-04-08 06:57] LABS: Differential Indicated SCAN CRITERIA MET
[2020-04-08 07:14] LABS: Differential Comment SCANNED
[2020-04-08 07:21] LABS: Anion Gap 4 (5-15); BUN 15 mg/dL (7-18); BUN/Creat Ratio 9.6 RATIO (10-20); Calcium,Total 8.4 mg/dL (8.5-10.1); Chloride 106 mmol/L (98-107); Creatinine, Serum 1.56 mg/dL (0.70-1.30); EST Glomerular Filtration Rate 54 mL/min (>60); Est Glom Filt Rate - Afr Amer 65 mL/min (>60); Estimated Creatinine Clearance 74.69 ml/min; Glucose 140 mg/dL (74-106); Potassium 4.6 mmol/L (3.5-5.1); Sodium Level 137 mmol/L (136-145)
[2020-04-08] MEDS: traMADol 50 MG Tablet PO (10:46)
--- NOTE | 2020-04-08 10:47 | PCM.PN.SRG ---
Patient Problems: Active and Suspected Problems Right lower quadrant abdominal pain (Acute) Acute appendicitis (Acute) Appendicitis (Acute) ARLEN (acute kidney injury) (Acute) Subjective: Patient evaluated resting comfortably in bed. He notes very minimal amount of incisional discomfort. He denies nausea, vomiting, fever. He is urinating well. - Physical Exam Vitals/I&O's: Vital Signs Temp Pulse Resp BP Pulse Ox 98.0 F 88 16 100/61 94 04/08/20 09:12 04/08/20 09:12 04/08/20 09:12 04/08/20 09:12 04/08/20 09:12 Oxygen Flow Rate (L/min) 2 Oxygen Delivery Method Room Air Weight: 279 lb 15.793 oz Body Mass Index (BMI) 36.9 Intake and Output for Last 24 Hours 04/06/20 04/07/20 04/08/20 23:59 23:59 23:59 Intake Total 1000 / 1000 900 / 900 Balance 1000 / 1000 900 / 900 General: Alert, Oriented x3, Cooperative Abdomen: Bowel Sounds Present, Soft, Non Tender, - - Incisions c/d/i. No erythema. Small amount of dry blood on the superior incision. Microbiology Past 72 Hours 04/07/20 23:10 Mucosa - Nose SARS-CoV-2 Antigen (Rapid) - Final Laboratory Results 04/07/20 20:00: Urine Color Yellow, Urine Clarity Clear, Urine pH 6.5, Ur Specific [place] 1.015, Urine Protein Negative, Urine Glucose (UA) Normal, Urine Ketones Negative, Urine Occult Blood Negative, Urine Nitrite Negative, Urine Bilirubin Negative, Urine Urobilinogen Normal, Ur Leukocyte Esterase 25 H, Urine RBC 0 SEEN, Urine WBC 0 SEEN, Ur Squamous Epith Cells 0 SEEN, Urine Bacteria 0 SEEN, Urine Mucus 0 SEEN 04/07/20 20:04: WBC 9.2, RBC 5.87, Hgb 16.3, Hct 48.5, MCV 82.6, MCH 27.8, MCHC 33.6, RDW Std Deviation 37.3, RDW Coeff of [place] 12.2, Plt Count 285, MPV 9.0, Immature Gran % (Auto) 0.300, Neut % (Auto) 63.5, Lymph % (Auto) 22.1, [place] % (Auto) 7.8, Eos % (Auto) 5.8 H, Baso % (Auto) 0.5, Absolute Neuts (auto) 5.8, Absolute Lymphs (auto) 2.04, Nucleated RBC % 0 04/07/20 20:04: Sodium 139, Potassium 3.8, Chloride 104, Carbon Dioxide 30.0, Anion Gap 5, BUN 18, Creatinine 1.84 H, Estim Creat Clear Calc 63.33, Est GFR (MDRD) Af Amer 54 L, Est GFR (MDRD) Non-Af 45 L, BUN/Creatinine Ratio 9.8 L, Glucose 111 H, Calcium 8.6, Total Bilirubin 0.30, AST 14 L, ALT 16, Alkaline Phosphatase 88, Total Protein 7.5, Albumin 3.7, Globulin 3.8, Albumin/Globulin Ratio 1.0, Lipase 154 04/08/20 06:37: WBC 6.1, RBC 6.07, Hgb 16.4, Hct 49.7, MCV 81.9, MCH 27.0, MCHC 33.0, RDW Std Deviation 36.4, RDW Coeff of [place] 12.1, Plt Count 265, MPV 8.8, Immature Gran % (Auto) 0.200, Neut % (Auto) 88.6 H, Lymph % (Auto) 9.7 L, [place] % (Auto) 1.0, Eos % (Auto) 0.2, Baso % (Auto) 0.3, Absolute Neuts (auto) 5.4, Absolute Lymphs (auto) 0.59 L, Nucleated RBC % 0, Differential Comment SCANNED 04/08/20 06:37: Sodium 137, Potassium 4.6, Chloride 106, Carbon Dioxide 27.0, Anion Gap 4 L, BUN 15, Creatinine 1.56 H, Estim Creat Clear Calc 74.69, Est GFR (MDRD) Af Amer 65, Est GFR (MDRD) Non-Af 54 L, BUN/Creatinine Ratio 9.6 L, Glucose 140 H, Calcium 8.4 L Current Medications Acetaminophen (Acetaminophen 325 Mg Tablet) 650 mg PO Q6H PRN PRN PRN Reason: Pain Score 1-10 Hydralazine HCl (Hydralazine 20 Mg/Ml Vial) 10 mg IV Q4H PRN PRN PRN Reason: SBP > 160 Hydromorphone HCl (Hydromorphone 0.5 Mg/0.5 Ml Syringe) 0.5 - 1 mg IV Q2H PRN PRN PRN Reason: Pain Score 1-10 Last Admin: 04/08/20 05:56 Dose: 0.5 mg Documented by: Hydromorphone HCl (Hydromorphone 1 Mg/Ml Syringe) 0.5 - 1 mg IV Q2H PRN PRN PRN Reason: Pain Score 1-10 Last Admin: 04/08/20 02:25 Dose: 1 mg Documented by: Sodium Chloride () 1,000 mls @ 100 mls/hr IV .Q10H JIL Last Infusion: 04/08/20 09:46 Dose: 100 mls/hr Documented by: Piperacillin Sod/Tazobactam (Sod 3.375 gm/ Sodium Chloride) 50 mls @ 12.5 mls/hr IV Q8 JIL Last Infusion: 04/08/20 09:46 Dose: Infused Documented by: Ondansetron HCl (Ondansetron 4 Mg/2 Ml Vial) 4 mg IV Q8H PRN PRN PRN Reason: NAUSEA Sodium Chloride (0.9% Saline Lock 10 Ml Syringe) 10 - 40 ml IV UD PRN PRN Reason: SALINE FLUSH Last Admin: 04/08/20 05:56 Dose: 10 ml Documented by: Tramadol HCl (Tramadol 50 Mg Tablet) 50 mg PO Q6H PRN PRN PRN Reason: Pain Score 1-10 Medical Necessity - Tobacco Use Smoking Status: Never smoker Tobacco Use: Chew Assessment/Plan All Active Problems Right lower quadrant abdominal pain (Acute) Acute appendicitis (Acute) Appendicitis (Acute) ARLEN (acute kidney injury) (Acute) I am following this patient in conjunction with Dr. Cuevas S/p laparoscopic appendectomy Patient progressing very well Ready for discharge Will send home on 1 week worth of Augmentin Inpatient E&M: [id number] Subs Hosp L1 - No charge/post-op
--- NOTE | 2020-04-08 11:05 | CASEMGMT ---
ORLY CM in to complete face to face assessment with patient. Patient is getting ready to discharge to home. Patient is independent, has PCP, and has to assist at home if needed. Patient denies needs at discharge. Patient to discharge home with family support and follow-up plans in place.
--- NOTE | 2020-04-08 14:48 | PCM.HOSP.N ---
Hospitalist Note Patient was seen and examined Patient was seen earlier by nighttime hospitalist. Heart rate and blood pressure in normal range. No fever. Patient has history of sleep apnea and has CPAP but does not use it. On exam Lungs: Air entry bilateral equal. No crepitation/rhonchi Heart: S1-S2 regular no murmur/gallop/rub Abdomen: Mild tenderness over right lower quadrant. Bowel sounds sluggish. Mild expected distention after lap appendectomy. Port dressing is dry Patient is stable to be discharged. Please see consult note earlier by the nighttime hospitalist.
== END 2020-04-08 11:05 | disposition home or self-care (01) ==
LOC: ED 20:28 → AC 04-08 00:53 → MS3 04-09 11:16
PROVIDERS: Admitting Provider Surgery; Emergency Provider Emergency Medicine; PCP Family Medicine; Visit Provider Surgery
PROC: 0DTJ4ZZ Resection of Appendix, Percutaneous Endoscopic Approach (ICD-10-PCS; CPT 44970; principal; 2020-04-07 23:30)
DX: K35.30 Acute appendicitis with localized peritonitis, without perforation or gangrene (principal); K56.41 Fecal impaction; N17.9 Acute kidney failure, unspecified; E66.9 Obesity, unspecified; G47.33 Obstructive sleep apnea (adult) (pediatric); Z68.36 Body mass index [BMI] 36.0-36.9, adult; N18.2 Chronic kidney disease, stage 2 (mild); G62.9 Polyneuropathy, unspecified; E29.1 Testicular hypofunction; R03.0 Elevated blood-pressure reading, without diagnosis of hypertension; F17.220 Nicotine dependence, chewing tobacco, uncomplicated; Z98.2 Presence of cerebrospinal fluid drainage device
CPT/HCPCS: 44970; 36415; 74176; 80048; 80053; 81001; 83690; 85025; 87426; 88304; 94762; 96361; 96365; 96366; 96375; 96376; 99218; 99284; 99406; J7030; J7040; A4216; C1760; G0378; J2405

== ENCOUNTER → 2020-04-27 08:48 | Outpatient (CLI) | payer OTHER, SELFPAY ==
[2020-04-27 09:49] LABS: Absolute Lymphocyte Count 1.37 X10^3/uL (0.83-4.51); Absolute Neutrophil Count 4.6 X10^3/uL (2.0-7.7); Basophil# 0.04 X10^3/uL; Basophil% 0.6 % (0-1); Eosinophil# 0.27 X10^3/uL; Hematocrit 47.7 % (40-54); Hemoglobin 15.6 g/dL (13.0-16.5); Lymphocyte # 1.37 X10^3/ul (4.0); Lymphocyte % 20.1 % (19-41); Mean Corp Hgb Conc 32.7 g/dL (32-36); Mean Corpuscular Hgb 26.6 pg (27.0-32.0); Mean Corpuscular Volume 81.3 fL (80-94); Mean Platelet Vol. 8.9 fl (6.2-12.0); Monocyte# 0.51 X10^3/uL; Monocyte% 7.5 % (0-10); NRBC Flagged by Analyzer 0 % (0-5); Neutrophil % 67.4 % (47-70); Platelet Count 315 K/mm3 (150-450); RBC Distribution Width CV 12.5 % (11.6-14.6); RBC Distribution Width SD 36.9 fl (35.1-43.9); Red Blood Count 5.87 M/mm3 (4.6-6.2); White Blood Count 6.8 K/mm3 (4.4-11.0)
[2020-04-27 10:24] LABS: Anion Gap 4 (5-15); BUN 9 mg/dL (7-18); BUN/Creat Ratio 6.3 RATIO (10-20); Calcium,Total 8.7 mg/dL (8.5-10.1); Chloride 104 mmol/L (98-107); Creatinine, Serum 1.42 mg/dL (0.70-1.30); EST Glomerular Filtration Rate 60 mL/min (>60); Est Glom Filt Rate - Afr Amer 73 mL/min (>60); Glucose 138 mg/dL (74-106); Potassium 3.8 mmol/L (3.5-5.1); Sodium Level 137 mmol/L (136-145)
== END ==
PROVIDERS: PCP Family Medicine; Visit Provider Family Medicine
DX: R68.83 Chills (without fever) (principal); E29.1 Testicular hypofunction
CPT/HCPCS: 36415; 80048; 84403; 85025

== ENCOUNTER → 2020-05-04 15:19 | Outpatient (CLI) | payer OTHER, SELFPAY ==
[2020-05-04 18:03] LABS: Absolute Lymphocyte Count 2.27 X10^3/uL (0.83-4.51); Basophil# 0.05 X10^3/uL; Basophil% 0.6 % (0-1); Eosinophils% 4.7 % (0-5); Hematocrit 48.1 % (40-54); Hemoglobin 15.8 g/dL (13.0-16.5); Lymphocyte # 2.27 X10^3/ul (4.0); Lymphocyte % 26.6 % (19-41); Mean Corp Hgb Conc 32.8 g/dL (32-36); Mean Corpuscular Volume 82.2 fL (80-94); Mean Platelet Vol. 9.1 fl (6.2-12.0); Monocyte# 0.79 X10^3/uL; Monocyte% 9.3 % (0-10); NRBC Flagged by Analyzer 0 % (0-5); Neutrophil # 4.97 X10^3/uL (2.7-7.7); Neutrophil % 58.3 % (47-70); Platelet Count 352 K/mm3 (150-450); RBC Distribution Width CV 12.7 % (11.6-14.6); RBC Distribution Width SD 37.8 fl (35.1-43.9); Red Blood Count 5.85 M/mm3 (4.6-6.2); White Blood Count 8.5 K/mm3 (4.4-11.0)
[2020-05-04 18:40] LABS: ALB/GLOB Ratio 0.8 RATIO (0.9-2.4); AST(SGOT) 15 U/L (15-37); Alanine Aminotransfer ALT/SGPT 14 U/L (16-61); Albumin, Serum 3.6 g/dL (3.2-5.0); Alkaline Phosphatase 91 U/L (45-117); Anion Gap 7 (5-15); BUN 18 mg/dL (7-18); BUN/Creat Ratio 12.1 RATIO (10-20); Calcium,Total 8.8 mg/dL (8.5-10.1); Chloride 103 mmol/L (98-107); Creatinine, Serum 1.49 mg/dL (0.70-1.30); EST Glomerular Filtration Rate 57 mL/min (>60); Est Glom Filt Rate - Afr Amer 69 mL/min (>60); Globulin 4.3 g/dL (2.2-4.2); Glucose 93 mg/dL (74-106); Lipase 148 U/L (73-393); Protein, Total 7.9 g/dL (6.4-8.2); Sodium Level 138 mmol/L (136-145)
== END ==
PROVIDERS: PCP Family Medicine; Referring Provider Family Medicine; Visit Provider Family Medicine
DX: R10.9 Unspecified abdominal pain (principal)
CPT/HCPCS: 36415; 80053; 83690; 85025

== ENCOUNTER → 2020-05-05 11:08 | Outpatient (CLI) | payer OTHER, SELFPAY ==
[2020-04-08 01:45] VITALS: BMI 36.9
--- NOTE | 2020-05-05 11:10 | US_ITS ---
STUDY: ABDOMINAL ULTRASOUND - RIGHT UPPER QUADRANT REASON FOR VISIT: Male, 34 years old RUQ pain TECHNIQUE: Ultrasound evaluation of the right upper quadrant was performed with real-time and static patel-scale imaging. TECHNICAL QUALITY: Adequate. COMPARISON: None. FINDINGS: Liver: The liver measures 17 cm. There is normal echogenicity of the liver. The bile ducts are within normal limits. There is hepatic color flow. The direction of portal flow is hepatopetal. There is no demonstrated mass lesion. Gallbladder: Normal distended gallbladder. The gallbladder wall measures 3.0 mm. There is a positive sonographic Campuzano''s sign. There is no pericholecystic fluid. There are no gallstones. Common Bile Duct (C.B.D.): The common bile duct measures 4.3 mm. Pancreas: There is nonvisualization of the pancreas due to overlying bowel gas. Right Kidney: Normal size of the right kidney. The right kidney measures 11.3 cm x 4.9 cm x 5.9 cm. Normal renal cortex. The right cortex measures 1.7 cm. There is no demonstrated renal mass or cyst. There is no right hydronephrosis. US/Abdomen Limited IMPRESSION: Positive sonographic CAMPUZANO sign. No evidence of gallstones. Electronically Signed: Nnamdi Bergeron MD at 12:24 EST , Service support ,
== END ==
PROVIDERS: PCP Family Medicine; Referring Provider Family Medicine; Visit Provider Family Medicine
DX: R10.9 Unspecified abdominal pain (principal)
CPT/HCPCS: 76705

== ENCOUNTER 2020-05-06 18:31 | Emergency (ER) | payer OTHER, SELFPAY ==
[2020-05-06 18:32] VITALS: BP 159/82; PULSE 102; RESP 18; TEMP 35.8; O2SAT 97; BMI 36.0
--- NOTE | 2020-05-06 18:52 | ED.RN ---
pt didnt want to wait to be seen so he left to go to [facility] or [facility]
== END 2020-05-06 18:52 ==
LOC: ED 18:49
PROVIDERS: Emergency Provider Student in an Organized Health Care Education/Training Program; PCP Family Medicine
DX: R10.9 Unspecified abdominal pain (principal)

== ENCOUNTER 2020-05-06 22:13 | Emergency (ER) | payer OTHER, SELFPAY ==
[2020-05-06 18:32] VITALS: BMI 36.0
[2020-05-06 22:14] VITALS: BP 152/87; PULSE 98; RESP 16; TEMP 36.5; O2SAT 96; BMI 36.0
--- NOTE | 2020-05-06 22:26 | CT_ITS ---
STUDY: CT ABDOMEN AND PELVIS WITH CONTRAST REASON FOR EXAM: Male, 34 years old. Abdominal pain. TECHNIQUE: Transaxial images were obtained from the dome of the diaphragm to the symphysis pubis without oral contrast. IV 100mL [id number]-[id number] was administered. Sagittal and coronal images were reconstructed. Individualized dose optimization techniques were used for this CT. COMPARISON: 04/07/2020 CT abdomen pelvis. FINDINGS: Partially visualized lower chest: Lung bases unremarkable. Liver: No concerning lesions. Gallbladder and biliary tree: No visible gallstones. No pericholecystic inflammation. No biliary ductal dilation. Pancreas: No pancreatic lesions or inflammation. Spleen: Normal size, no splenic lesions. Adrenal glands: No concerning masses. Kidneys and ureters: No hydronephrosis or renal stones. No concerning masses. No ureteral dilation. Bowel: Prior appendectomy. No obstruction or inflammation of the bowel. Urinary bladder: No stones or wall thickening. Reproductive:Normal size prostate. Vascular: No abdominal aortic aneurysm. Portal, mesenteric and systemic veins patent. Retroperitoneal and peritoneal spaces: BRIM SETTER shunt catheter descends in the right anterior chest wall, and enters the right upper quadrant abdominal wall, and curls in the upper abdomen with the tip in the anterior mid abdomen. Mesenteric edema and a small amount of free fluid not unexpected given the presence of the shunt similar to previous. No free air or extraluminal air. Osseous: No acute osseous abnormality. Abdominal and pelvic wall: No concerning findings. CT/Abdomen/Pelvis W IV Cont ONLY IMPRESSION: No acute findings. Mesenteric edema and a small amount of free fluid likely related to the patient''s BRIM SETTER shunt, similar to prior. Electronically Signed: Stefan Stinson MD at 0:34 EST Tel , Service support ,
--- NOTE | 2020-05-06 22:26 | CT_ITS ---
STUDY: CT BRAIN WITHOUT CONTRAST REASON FOR EXAM: Male, 34 years old. Headache. TECHNIQUE: Transaxial CT imaging of the brain was performed without administration of intravenous contrast material. Individualized dose optimization techniques were used for this CT. COMPARISON: 10/09/2014 CT brain and 10/18/2014 MRI brain. FINDINGS: No evidence of intracranial hemorrhage, mass, or acute infarct. Interval placement of an intraventricular catheter via right frontal harrison hole with the tip in the right lateral ventricle frontal horn. The reservoir in the right frontal scalp and partially visible shunt catheter descending in the right temporal and occipital scalp are partially visible and unremarkable. The size of the lateral and third ventricles has decreased slightly compared to the previous study. There is no transependymal hypodensity or other evidence of acute hydrocephalus. Cystic lesion along the posterior aspect of the cerebellum, and chronic occipital craniotomy are again demonstrated. Mild mucosal thickening ethmoid air cells with no paranasal sinus air-fluid levels. No acute finding in the extracranial soft tissues. CT/Brain/Head without Contrast IMPRESSION: No acute findings. Interval placement of a ventricular shunt. The size of the ventricles has decreased compared to the previous studies. Comparison with more recent head CTs of the patient''s post shunt baseline would be helpful although there is no transependymal edema or other evidence of acute hydrocephalus. Electronically Signed: Stefan Stinson MD at 0:24 EST Tel , Service support ,
--- NOTE | 2020-05-06 22:27 | ED.VIS.GEN ---
History of Present Illness Chief Complaint: Abd Pain Informant: Patient Onset: Days Context: Gradual Onset Timing: Continuous Current Severity: Moderate Maximum Severity: Moderate Narrative: The patient is a 34-year-old male with medical history significant for prior arachnoid cyst with hydrocephalus, who underwent CHECK WRITING MACHINE OPERATOR shunt in 2014, with shunt revision in October of last year, along with recent appendectomy a month ago who presents to the emergency department multiple complaints. Patient states for the past 3 days, his abdomen abdominal pain. He states is mostly on the right side in his right upper and lateral abdomen. He did have an outpatient ultrasound which showed a positive sonographic Campuzano sign, but no evidence of acute cholecystitis. The patient is also complaining of headache. He states is intermittent and worse with changing positions. He describes it as throbbing. 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 Prior similar symptoms: No Recent Illness/Hospitalization: Yes Past Medical History - Allergies and Home Meds Allergies/Adverse Reactions: Allergies NSAIDS (Non-Steroidal Anti-Inflamma Allergy (Verified 05/06/20 22:17) Rash ibuprofen Adverse Reaction (Verified 05/06/20 18:33) Other ULCERS IN/ON MOUTH AND PENIS Primary Care Physician: Celestino Rodriges MD [Primary Care Provider] - Prior records reviewed: Yes Past Medical History: - - Arachnoid cyst Surgical History: appendectomy, - - Patient has had a CHECK WRITING MACHINE OPERATOR shunt placed approximately 2 months ago Smoking Status: Unknown if ever smoked - Family History Maternal Family History: Reports: No pertinent history Review of Systems General: Reports: Chills, Fever. Denies: Sweats Eyes: Denies: Visual changes - bilaterally, Diplopia ENT: Denies: Rhinorrhea, Sore throat Cardiovascular: Denies: Chest pain, Palpitations Respiratory: Denies: Dyspnea, Cough, Dyspnea on exertion Gastrointestinal: Reports: Abdominal pain, Nausea. Denies: Vomiting, Diarrhea, Melena, Hematochezia Genitourinary: Denies: Dysuria, Hematuria, Frequency Musculoskeletal: Denies: Back pain, Extremity Pain Skin: Denies: Rash, Wounds Neurological: Reports: Headache. Denies: Weakness, Numbness Physical Exam Vital Signs/Narrative: Vital Signs Temp Pulse Resp BP Pulse Ox 05/06/20 22:14 97.7 F L 98 16 152/87 H 96 Inital Vital Signs reviewed: Yes General: Well nourished, Well developed, No Acute Distress Head: Normocephalic, Atraumatic Eyes: Perrl, EOMI ENT: Moist mucous membranes, No rhinorrhea Neck: Supple, Nontender Cardiovascular: Regular rate, Regular rhythm, No murmurs Respiratory: No distress, CTA bilaterally, Chest nontender Abdomen: Soft, Nondistended, Normal bowel sounds, Tender. Negative for: Guarding Back: Nontender, Normal Inspection Extremities: Nontender, No edema Skin: Normal color, No rash Neurological: Alert, Oriented x3, Cranial nerves II-XII grossly intact, Normal Strength, Normal Sensation Psychological: Normal affect, Normal Mood Diagnostic/Tx/Re-eval Clinical Impression(s) from Imaging Studies Abdomen/Pelvis CT 05/06/20 22:26 IMPRESSION: No acute findings. Mesenteric edema and a small amount of free fluid likely related to the patient''s CHECK WRITING MACHINE OPERATOR shunt, similar to prior. Electronically Signed: Stefan Stinson MD at 0:34 EST Tel , Service support , ADDENDUM: 05/07/[address] 05/06/20 22:26 IMPRESSION: No acute findings. Interval placement of a ventricular shunt. The size of the ventricles has decreased compared to the previous studies. Comparison with more recent head CTs of the patient''s post shunt baseline would be helpful although there is no transependymal edema or other evidence of acute hydrocephalus. Electronically Signed: Stefan Stinson MD at 0:24 EST Tel , Service support , Abdomen CT 05/07/20 00:35 IMPRESSION: Mesenteric edema and a small amount of fluid again demonstrated. This includes a 5 cm collection of fluid along the right anterior upper pelvic sidewall with mild peripheral enhancement which has increased in size from 2 cm compared to the 04/07/2020 CT from before the appendectomy. All of these changes could be related to the patient''s CHECK WRITING MACHINE OPERATOR shunt with the fluid representing noninfected collections of CSF. However, superimposed infection including forming abscess along the right anterior pelvic sidewall cannot be excluded. There is no extraluminal air and no extraluminal enteric contrast to definitively suggest dehiscence of the appendectomy or bowel leak. Discussed with Dr. Hever Morse prior to dictation. N.B. : The above information has been verbally conveyed by Stefan Stinson MD to Hever Morse MD, on 05/07/2020 03:21:21 (ET). Electronically Signed: Stefan Stinson MD at 3:22 EST Tel , Service support , ADDENDUM: 05/07/20 0329 IMPRESSION: Mesenteric edema and a small amount of fluid again demonstrated. This includes a 5 cm collection of fluid along the right anterior upper pelvic sidewall with mild peripheral enhancement which has increased in size from 2 cm compared to the 04/07/2020 CT from before the appendectomy. All of these changes could be related to the patient''s CHECK WRITING MACHINE OPERATOR shunt with the fluid representing noninfected collections of CSF. However, superimposed infection including forming abscess along the right anterior pelvic sidewall cannot be excluded. There is no extraluminal air and no extraluminal enteric contrast to definitively suggest dehiscence of the appendectomy or bowel leak. Discussed with Dr. Hever Morse prior to dictation. N.B. : The above information has been verbally conveyed by Stefan Stinson MD to Hever Morse MD, on 05/07/2020 03:21:21 (ET). Electronically Signed: Stefan Stinson MD at 3:22 EST Tel , Service support , Abnormal Lab Results 05/06/20 05/06/20 05/06/20 22:50 22:50 22:50 WBC 9.8 RBC 5.83 Hgb 15.8 Hct 48.5 MCV 83.2 MCH 27.1 MCHC 32.6 RDW Std Deviation 37.8 RDW Coeff of [place] 12.6 Plt Count 331 MPV 8.6 Immature Gran % (Auto) 0.400 Neut % (Auto) 72.9 H Lymph % (Auto) 15.8 L [place] % (Auto) 8.2 Eos % (Auto) 2.3 Baso % (Auto) 0.4 Absolute Neuts (auto) 7.2 Absolute Lymphs (auto) 1.55 Nucleated RBC % 0 Sodium 137 Potassium 3.7 Chloride 101 Carbon Dioxide 32.0 Anion Gap 4 L BUN 13 Creatinine 1.60 H Estim Creat Clear Calc 72.83 Est GFR (MDRD) Af Amer 63 Est GFR (MDRD) Non-Af 52 L BUN/Creatinine Ratio 8.1 L Glucose 132 H Lactic Acid 1.2 Calcium 8.7 Total Bilirubin 0.50 AST 11 L ALT 12 L Alkaline Phosphatase 84 Total Protein 7.7 Albumin 3.7 Globulin 4.0 Albumin/Globulin Ratio 0.9 Lipase 129 Urine Color Urine Clarity Urine pH Ur Specific [place] Urine Protein Urine Glucose (UA) Urine Ketones Urine Occult Blood Urine Nitrite Urine Bilirubin Urine Urobilinogen Ur Leukocyte Esterase Urine RBC Urine WBC Ur Squamous Epith Cells Urine Bacteria Urine Mucus 05/06/20 23:10 WBC RBC Hgb Hct MCV MCH MCHC RDW Std Deviation RDW Coeff of [place] Plt Count MPV Immature Gran % (Auto) Neut % (Auto) Lymph % (Auto) [place] % (Auto) Eos % (Auto) Baso % (Auto) Absolute Neuts (auto) Absolute Lymphs (auto) Nucleated RBC % Sodium Potassium Chloride Carbon Dioxide Anion Gap BUN Creatinine Estim Creat Clear Calc Est GFR (MDRD) Af Amer Est GFR (MDRD) Non-Af BUN/Creatinine Ratio Glucose Lactic Acid Calcium Total Bilirubin AST ALT Alkaline Phosphatase Total Protein Albumin Globulin Albumin/Globulin Ratio Lipase Urine Color Yellow Urine Clarity Clear Urine pH 7.0 Ur Specific [place] 1.010 Urine Protein Negative Urine Glucose (UA) Normal Urine Ketones Negative Urine Occult Blood Negative Urine Nitrite Negative Urine Bilirubin Negative Urine Urobilinogen Normal Ur Leukocyte Esterase 25 H Urine RBC 0-5 SEEN Urine WBC 0-5 SEEN Ur Squamous Epith Cells 0-5 SEEN Urine Bacteria 0 SEEN Urine Mucus 0 SEEN - Medical Decision Making The patient presents with multiple complaints. His largest complaint is of abdominal pain. However, he has been having intermittent chills, night sweats, and headaches for the past 10 days. He states that this is similar to when he has had shunt infection in the past. He does tell me that his shunt is turned off. I did spend time going through clinic thank to try to look up the patient's records. It seems that his shunt is at a level of 8. IV was established. Labs were obtained. Patient does not have a significant leukocytosis, but does have a slight shift. Otherwise, his labs are unremarkable. He underwent CT of the abdomen pelvis with IV contrast. There was a lot of fluid within the pelvis, but no definitive abscess. I did discuss the patient with Dr. Cuevas, who did the patient's appendectomy a month ago. He reviewed the images and recommended a CT with oral contrast to make sure there is no leak. This was done. I actually discussed this with the radiologist. There is no leak or evidence of air. There is some slight rim enhancement in the abdomen, but no definitive abscess. I do have concern the patient may have shunt infection. He had recent intra-abdominal surgery and now has these intermittent infectious symptoms. I have discussed his case with the [facility] transfer line, as the patient's neurosurgeon does operate through the [facility] system. The patient was accepted by Dr. Donahue and will be transferred. Impression 1. Postoperative abdominal pain 2. CHECK WRITING MACHINE OPERATOR shunt malfunction ED Disposition - Plan for ED Patient: Referrals: Celestino Rodriges MD [Primary Care Provider] -
[2020-05-06] MEDS: HYDROmorphone 1 MG/ML Syringe IV (22:53)
[2020-05-06] MEDS: 0.9% Normal Saline 1,000 ML 1000 ML IV (22:53)
[2020-05-06] MEDS: Ondansetron 4 MG/2 ML Vial IV (22:54)
[2020-05-06 22:55] VITALS: BP 152/87; PULSE 98; RESP 16; TEMP 36.5; O2SAT 96
[2020-05-06 23:06] LABS: Absolute Lymphocyte Count 1.55 X10^3/uL (0.83-4.51); Absolute Neutrophil Count 7.2 X10^3/uL (2.0-7.7); Basophil# 0.04 X10^3/uL; Basophil% 0.4 % (0-1); Eosinophil# 0.23 X10^3/uL; Eosinophils% 2.3 % (0-5); Hematocrit 48.5 % (40-54); Hemoglobin 15.8 g/dL (13.0-16.5); Lymphocyte # 1.55 X10^3/ul (4.0); Lymphocyte % 15.8 % (19-41); Mean Corp Hgb Conc 32.6 g/dL (32-36); Mean Corpuscular Hgb 27.1 pg (27.0-32.0); Mean Corpuscular Volume 83.2 fL (80-94); Mean Platelet Vol. 8.6 fl (6.2-12.0); Monocyte% 8.2 % (0-10); NRBC Flagged by Analyzer 0 % (0-5); Neutrophil # 7.15 X10^3/uL (2.7-7.7); Neutrophil % 72.9 % (47-70); Platelet Count 331 K/mm3 (150-450); RBC Distribution Width CV 12.6 % (11.6-14.6); RBC Distribution Width SD 37.8 fl (35.1-43.9); Red Blood Count 5.83 M/mm3 (4.6-6.2); White Blood Count 9.8 K/mm3 (4.4-11.0)
[2020-05-06 23:14] LABS: Bacteria 0 SEEN /hpf (None Seen); Mucous, Urine 0 SEEN /hpf (<or=2+)
[2020-05-06 23:19] LABS: Color, Urine Yellow (Yellow); Glucose, Dipstick Normal (Normal); Ketone-Dipstick Negative (Negative); Leukocyte Esterase-Dipstick 25 /ul (Negative); Nitrite-Dipstick Negative (Negative); Occult Blood-Urine Negative /ul (Negative); Protein-Dipstick Negative (Negative); Urine Bilirubin Dipstick Negative (Negative); Urine Clarity Clear (Clear); Urine Urobilinogen Normal (Normal)
[2020-05-06 23:26] LABS: Squamous Epithelial Cells - UA 0-5 SEEN /hpf (0-5)
[2020-05-06 23:27] LABS: White Blood Cells 0-5 SEEN /hpf (0-5)
[2020-05-06 23:28] LABS: Red Blood Cells-Urine 0-5 SEEN /hpf (0-5)
[2020-05-06 23:31] LABS: ALB/GLOB Ratio 0.9 RATIO (0.9-2.4); AST(SGOT) 11 U/L (15-37); Alanine Aminotransfer ALT/SGPT 12 U/L (16-61); Albumin, Serum 3.7 g/dL (3.2-5.0); Alkaline Phosphatase 84 U/L (45-117); Anion Gap 4 (5-15); BUN 13 mg/dL (7-18); BUN/Creat Ratio 8.1 RATIO (10-20); Calcium,Total 8.7 mg/dL (8.5-10.1); Chloride 101 mmol/L (98-107); EST Glomerular Filtration Rate 52 mL/min (>60); Est Glom Filt Rate - Afr Amer 63 mL/min (>60); Estimated Creatinine Clearance 72.83 ml/min; Glucose 132 mg/dL (74-106); Lipase 129 U/L (73-393); Potassium 3.7 mmol/L (3.5-5.1); Protein, Total 7.7 g/dL (6.4-8.2); Sodium Level 137 mmol/L (136-145)
[2020-05-06 23:33] LABS: Lactic Acid 1.2 mmol/L (0.4-1.9)
--- NOTE | 2020-05-07 00:35 | CT_ITS ---
STUDY: CT ABDOMEN AND PELVIS WITHOUT CONTRAST REASON FOR EXAM: Male, 34 years old. Status post appendectomy. Right lower quadrant pain. SUPERVISOR SAMPLE shunt. TECHNIQUE: Transaxial images were obtained from the dome of the diaphragm to the symphysis pubis with oral contrast, and without intravenous contrast. Sagittal and coronal images were reconstructed. Individualized dose optimization techniques were used for this CT. COMPARISON: CT abdomen and pelvis from a few hours prior, and from 04/07/2020 and 03/12/2020. FINDINGS: Partially visualized lower chest: Lung bases unremarkable. Liver: No concerning lesions. Gallbladder and biliary tree: No visible gallstones. No pericholecystic inflammation. No biliary ductal dilation. Pancreas: No pancreatic lesions or inflammation. Spleen: Normal size, no splenic lesions. Adrenal glands: No concerning masses. Kidneys and ureters: No hydronephrosis or renal stones. No concerning masses. No ureteral dilation. Bowel: Status post appendectomy. No obstruction or inflammation of the bowel. Urinary bladder: No stones or wall thickening. Reproductive:Normal size prostate. Vascular: No abdominal aortic aneurysm. Retroperitoneal and peritoneal spaces: As before there is mesenteric edema and a small amount of fluid in the mesentery and in the pelvis. This includes a 5 cm tubular region of fluid along the right anterior upper pelvic sidewall with mild peripheral enhancement. There is no extraluminal air and no extraluminal enteric contrast. On the 03/12/2020 and 03/09/2020 CTs before the appendectomy, similar findings were seen although there is slightly more fluid today. SUPERVISOR SAMPLE shunt catheter again demonstrated. Osseous: No acute osseous abnormality. Abdominal and pelvic wall: No concerning findings. CT/Abdomen/Pel W ORAL Cont Only IMPRESSION: Mesenteric edema and a small amount of fluid again demonstrated. This includes a 5 cm collection of fluid along the right anterior upper pelvic sidewall with mild peripheral enhancement which has increased in size from 2 cm compared to the 04/07/2020 CT from before the appendectomy. All of these changes could be related to the patient''s SUPERVISOR SAMPLE shunt with the fluid representing noninfected collections of CSF. However, superimposed infection including forming abscess along the right anterior pelvic sidewall cannot be excluded. There is no extraluminal air and no extraluminal enteric contrast to definitively suggest dehiscence of the appendectomy or bowel leak. Discussed with Dr. Hever Morse prior to dictation. N.B. : The above information has been verbally conveyed by Stefan Stinson MD to Hever Morse MD, on 05/07/2020 03:21:21 (ET). Electronically Signed: Stefan Stinson MD at 3:22 EST Tel , Service support ,
[2020-05-07] MEDS: HYDROmorphone 1 MG/ML Syringe IV (00:39)
[2020-05-07 01:46] VITALS: BP 117/76; PULSE 79; RESP 16; TEMP 36.6; O2SAT 96
--- NOTE | 2020-05-07 03:19 | PCM.CONS.GEN ---
Problem List (1) Generalized abdominal pain Status: Acute Reason for Consult Date of Consultation: 05/07/20 History of Present Illness: The patient is a 34-year-old male with medical history significant for prior arachnoid cyst with hydrocephalus, who underwent SHOT COAT TENDER shunt in 2014, with shunt revision in October of last year, along with recent appendectomy a month ago. Pathology report showed that this was an early acute appendicitis and from my recollection it was very early and it was more of a fecalith located within the appendix itself. Who presents to the emergency department multiple complaints. Patient states for the past 3 days, his abdomen abdominal pain. He states is mostly on the right side in his right upper and lateral abdomen. He did have an outpatient ultrasound which showed a positive sonographic Campuzano sign, but no evidence of acute cholecystitis. The patient is also complaining of headache. He states is intermittent and worse with changing positions. He describes it as throbbing. 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 Past Medical History Allergies NSAIDS (Non-Steroidal Anti-Inflamma Allergy (Verified 05/06/20 22:17) Rash ibuprofen Adverse Reaction (Verified 05/06/20 18:33) Other ULCERS IN/ON MOUTH AND PENIS Home Medications: Ambulatory Orders Medication Instructions Recorded traMADol [Ultram (G)] 50 mg PO DAILY 04/07/20 Testosterone Cypionate 300 mg IM MOTH 04/08/20 [Depo-Testosterone] Surgical History: appendectomy, - - Patient has had a SHOT COAT TENDER shunt placed approximately 2 months ago Smoking Status: Never smoker - *Family History Maternal History Items: No pertinent history Review of Systems Constitutional: Denies: Chills, Fever HEENT: Reports: Head Aches Gastrointestinal: Reports: Abdominal Pain - Physical Exam Vitals/I&O's: Vital Signs Temp Pulse Resp BP Pulse Ox 97.9 F 79 16 117/76 96 05/07/20 01:46 05/07/20 01:46 05/07/20 01:46 05/07/20 01:46 05/07/20 01:46 Oxygen Delivery Method Room Air Weight: 273 lb Body Mass Index (BMI) 36.0 Intake and Output for Last 24 Hours 05/05/20 05/06/20 05/07/20 23:59 23:59 23:59 Intake Total 1000 / 1000 Balance 1000 / 1000 General: Alert, Oriented x3 HEENT: - - There is no tenderness on his scalp or in the general direction of his SHOT COAT TENDER shunt. Neck: No Nuchal Rigidity Lungs: Clear to auscultation Cardiovascular: Regular rate, Regular Rhythm, No murmurs Abdomen: Soft, Tender - Patient has some minimal tenderness around his umbilical area no rebound guarding or peritoneal signs are identified. Microbiology Past 72 Hours 05/06/20 22:50 Mucosa - Nose SARS-CoV-2 Antigen (Rapid) - Final Laboratory Results 05/06/20 22:50: WBC 9.8, RBC 5.83, Hgb 15.8, Hct 48.5, MCV 83.2, MCH 27.1, MCHC 32.6, RDW Std Deviation 37.8, RDW Coeff of [place] 12.6, Plt Count 331, MPV 8.6, Immature Gran % (Auto) 0.400, Neut % (Auto) 72.9 H, Lymph % (Auto) 15.8 L, [place] % (Auto) 8.2, Eos % (Auto) 2.3, Baso % (Auto) 0.4, Absolute Neuts (auto) 7.2, Absolute Lymphs (auto) 1.55, Nucleated RBC % 0 05/06/20 22:50: Sodium 137, Potassium 3.7, Chloride 101, Carbon Dioxide 32.0, Anion Gap 4 L, BUN 13, Creatinine 1.60 H, Estim Creat Clear Calc 72.83, Est GFR (MDRD) Af Amer 63, Est GFR (MDRD) Non-Af 52 L, BUN/Creatinine Ratio 8.1 L, Glucose 132 H, Calcium 8.7, Total Bilirubin 0.50, AST 11 L, ALT 12 L, Alkaline Phosphatase 84, Total Protein 7.7, Albumin 3.7, Globulin 4.0, Albumin/Globulin Ratio 0.9, Lipase 129 05/06/20 22:50: Lactic Acid 1.2 05/06/20 23:10: Urine Color Yellow, Urine Clarity Clear, Urine pH 7.0, Ur Specific [place] 1.010, Urine Protein Negative, Urine Glucose (UA) Normal, Urine Ketones Negative, Urine Occult Blood Negative, Urine Nitrite Negative, Urine Bilirubin Negative, Urine Urobilinogen Normal, Ur Leukocyte Esterase 25 H, Urine RBC 0-5 SEEN, Urine WBC 0-5 SEEN, Ur Squamous Epith Cells 0-5 SEEN, Urine Bacteria 0 SEEN, Urine Mucus 0 SEEN Assessment/Plan All Active Problems Right lower quadrant abdominal pain (Acute) Acute appendicitis (Acute) Appendicitis (Acute) ARLEN (acute kidney injury) (Acute) Generalized abdominal pain (Acute) Repeat CAT scan does not show any signs of a leak. I did use a lot of fluid in irrigating him and from what I remember he had significant amount of adhesions for somebody is never had abdominal surgery other than placement of a SHOT COAT TENDER shunt. I think would be melara for him to be placed on some empiric antibiotics. I am concerned that were missing something with regards to his headaches and the shunt and the fact that he had appendicitis I do not feel comfortable for him staying here at [facility] and he really needs to be seen up at [facility] where his neurosurgeon is located so they can make a determination is is truly an infection where his SHOT COAT TENDER shunt needs to be removed or can he just be treated with antibiotics. At the present time there really is not anything that needs to be drained there is no obvious abscess formed in his pelvis but considerations are going to need to be taken in the count to get a sample of some of this fluid to make sure that it is not infectious in nature.
[2020-05-07 03:30] VITALS: BP 127/67; PULSE 76; RESP 14; TEMP 36.7; O2SAT 92
[2020-05-07] MEDS: HYDROmorphone 0.5 MG/0.5 ML SYRINGE IV (03:48)
[2020-05-07 04:31] VITALS: BP 127/67; PULSE 76; RESP 14; TEMP 36.7; O2SAT 92
--- NOTE | 2020-05-07 04:51 | ED.RN ---
OWEN CHAN RN IS TRANSFERRING A PATIENT OUT TO ICU AND HAS REQUESTED ME TO CALL BACK IN 15 MIN.
--- NOTE | 2020-05-07 05:26 | ED.RN ---
2ND ATTEMPT AT TRYING TO CALL REPORT. THEY TOOK OUR PHONE NUMBER AND THEY WILL CALL US BACK.
[2020-05-07 05:27] VITALS: BP 130/74; PULSE 76; RESP 16; O2SAT 92
--- NOTE | 2020-05-07 05:39 | ED.RN ---
ACCEPTING RN CALLED BACK AND VERBAL REPORT WAS GIVEN.
== END 2020-05-07 05:28 | disposition short-term general hospital (02) ==
LOC: ED 22:36
PROVIDERS: Emergency Provider Emergency Medicine; PCP Family Medicine
DX: R10.31 Right lower quadrant pain (principal); R51.9 Headache, unspecified; Z98.2 Presence of cerebrospinal fluid drainage device; Z88.6 Allergy status to analgesic agent; R60.9 Edema, unspecified
CPT/HCPCS: 70450; 74176; 74177; 80053; 81001; 83605; 83690; 85025; 87040; 87426; 96361; 96365; 96375; 99285; J7030; Q9967; A4216; J2405

== ENCOUNTER 2020-06-02 22:11 | Emergency (ER) | payer OTHER, SELFPAY ==
[2020-06-02 22:15] VITALS: BP 170/99; PULSE 98; RESP 18; TEMP 36.8; O2SAT 98; BMI 35.6
--- NOTE | 2020-06-02 22:50 | ED.DCSUM_ITS ---
History of Present Illness Chief Complaint: General Illness Informant: Patient Narrative: Patient states he has recurrent symptoms from his PEARL GLUE OPERATOR shunt. He has had a PEARL GLUE OPERATOR shunt since 2014. It was revised last summer. However it has been turned off since then. He stated since February has been dealing with frequent headaches and abdominal pain after he had his appendectomy. He was seen last month for similar complaints that he is having today. He has what appears to be chronic right-sided abdominal pain and headache. He was evaluated here at the end of last month with imaging studies and lab work. He was placed on IV antibiotics and transferred to [facility] There he had IV antibiotics for a few days and then discharged on a total of 14 days antibiotics. He stated his abdominal pain and headache was significantly better after treatment. He stated none of his cultures ever came back positive. He stated they did not tap his shunt or do a LP. They stated the risk of doing this is too high. He has surgery scheduled in 1 week to have his PEARL GLUE OPERATOR shunt removed which is believed to be the cause of his symptoms. He stated over the last couple days his frontal achy headache has gotten somewhat worse. He saw his family doctor Kelby approximately a week ago 4 days after antibiotics with his symptoms coming back. He has been on amoxicillin twice a day for the last week. He stated he had some chills tonight and a low-grade fever. He did not treat this this evening. He did take a cool shower. He denies any neck pain or meningitis symptoms. Comes in for further evaluation of that. - Past Medical History (1) ARLEN (acute kidney injury) Status: Acute (2) Acute appendicitis Status: Acute (3) Appendicitis Status: Acute (4) Generalized abdominal pain Status: Acute (5) Right lower quadrant abdominal pain Status: Acute Past Medical History - Allergies and Home Meds Allergies/Adverse Reactions: Allergies NSAIDS (Non-Steroidal Anti-Inflamma Allergy (Verified 06/02/20 22:13) Rash poison amalia extract Allergy (Verified 06/02/20 22:13) Hives ibuprofen Adverse Reaction (Verified 06/02/20 22:13) Other ULCERS IN/ON MOUTH AND PENIS Primary Care Physician: Celestino Rodriges MD [Primary Care Provider] - Prior records reviewed: Yes Past Medical History: - - Problem list Surgical History: appendectomy, - - Patient has had a PEARL GLUE OPERATOR shunt placed approximately 2 months ago Lives: With Family Smoking Status: Never smoker Alcohol: None Drugs: None - Family History Maternal Family History: Reports: No pertinent history Review of Systems General: Reports: Chills, Fever. Denies: Sweats Eyes: Denies: Visual changes - bilaterally, Diplopia ENT: Denies: Rhinorrhea, Sore throat Cardiovascular: Denies: Chest pain, Palpitations Respiratory: Denies: Dyspnea, Cough, Dyspnea on exertion Gastrointestinal: Reports: Abdominal pain. Denies: Nausea, Vomiting, Diarrhea, Melena, Hematochezia Genitourinary: Denies: Dysuria, Hematuria, Frequency Musculoskeletal: Denies: Back pain, Extremity Pain Skin: Denies: Rash, Wounds Neurological: Reports: Headache. Denies: Weakness, Numbness Physical Exam Vital Signs/Narrative: Vital Signs Temp Pulse Resp BP Pulse Ox 06/02/20 22:15 98.3 F 98 18 170/99 H 98 General: Well nourished, Well developed, No Acute Distress Head: Normocephalic, Atraumatic Eyes: Perrl, EOMI ENT: Moist mucous membranes, No rhinorrhea Neck: Supple, Nontender Cardiovascular: Regular rate, Regular rhythm, No murmurs Respiratory: No distress, CTA bilaterally, Chest nontender Abdomen: Soft, Nontender, Nondistended, Normal bowel sounds Back: Nontender, Normal Inspection Extremities: Nontender, No edema Skin: Normal color, No rash Neurological: Alert, Oriented x3, Cranial nerves II-XII grossly intact, Normal Strength, Normal Sensation Psychological: Normal affect, Normal Mood Diagnostic/Tx/Re-eval - Medical Decision Making Patient appears quite well. Texting on his phone and does not appear toxic. Does not have a fever here. Does not appear septic. There is no meningeal signs on his neck exam. Shunt feels normal. His abdominal exam shows slight tenderness but nothing significant. I discussed the case with the patient. He is very much familiar with the symptoms. He does not want thing for discomfort at this time initially. Lab work was obtained. I discussed doing imaging with the patient. He is refusing this given the fact that he has had so many CAT scans in the recent past. He has surgery scheduled to remove the shunt and is hoping to get through this last week. Lab work shows no leukocytosis or left shift. Creatinine 1.49 which is chronically elevated for the patient. Urinalysis negative. Blood cultures were sent. I do not feel he needs a CSF tap or LP at this time. And a dose of vancomycin and Zosyn empirically. The patient on reevaluation appears quite well. He asked if we can admit him for IV antibiotics for few days. I discussed this with the hospitalist Dr. Akhtar consensus is the patient would be better served at [facility] where he sees his neurosurgeon. I have a low suspicion for sepsis. Lactate was negative. He does not have a fever here. He may not even have an infection. This may be just related to his shunt as this is a chronic problem. I discussed this findings with the patient. He would actually like to be discharged to follow-up as an outpatient. Offer him admission there and he declined this. He will return if he worsens. He will continue his empiric antibiotics. He was given a dose of hydromorphone pain will be given a short course of Percocet for home. ED Disposition - Plan for ED Patient: Disposition: Home or Assisted Living Diagnosis: Chronic headache, Abdominal pain, S/P PEARL GLUE OPERATOR shunt Instructions: ED PEARL GLUE OPERATOR Shunt Prescriptions: Oxycodone HCl/Acetaminophen [Percocet 5/325] 1 - 2 tablet PO Q6H PRN PRN 3 Days #12 tab PRN Reason: Pain Prescription Printed Referrals: Celestino Rodriges MD [Primary Care Provider] - Additional Instructions: With your neurosurgeon tomorrow.
[2020-06-02 22:51] VITALS: BP 170/99; PULSE 98; RESP 18; TEMP 36.8; O2SAT 98
[2020-06-02] MEDS: 0.9% Normal Saline 1,000 ML 250 ML IV (23:08)
[2020-06-02 23:12] LABS: Absolute Lymphocyte Count 2.32 X10^3/uL (0.83-4.51); Absolute Neutrophil Count 4.4 X10^3/uL (2.0-7.7); Basophil# 0.06 X10^3/uL; Basophil% 0.8 % (0-1); Eosinophils% 6.3 % (0-5); Hematocrit 48.2 % (40-54); Hemoglobin 15.7 g/dL (13.0-16.5); Lymphocyte # 2.32 X10^3/ul (4.0); Lymphocyte % 29.3 % (19-41); Mean Corp Hgb Conc 32.6 g/dL (32-36); Mean Corpuscular Hgb 27.1 pg (27.0-32.0); Mean Corpuscular Volume 83.1 fL (80-94); Mean Platelet Vol. 8.9 fl (6.2-12.0); Monocyte# 0.63 X10^3/uL; Monocyte% 7.9 % (0-10); NRBC Flagged by Analyzer 0 % (0-5); Neutrophil # 4.39 X10^3/uL (2.7-7.7); Neutrophil % 55.3 % (47-70); Platelet Count 251 K/mm3 (150-450); RBC Distribution Width CV 13.2 % (11.6-14.6); RBC Distribution Width SD 39.7 fl (35.1-43.9); White Blood Count 7.9 K/mm3 (4.4-11.0)
[2020-06-02 23:26] LABS: Anion Gap 6 (5-15); BUN 14 mg/dL (7-18); BUN/Creat Ratio 9.4 RATIO (10-20); Calcium,Total 8.9 mg/dL (8.5-10.1); Chloride 103 mmol/L (98-107); Creatinine, Serum 1.49 mg/dL (0.70-1.30); EST Glomerular Filtration Rate 57 mL/min (>60); Est Glom Filt Rate - Afr Amer 69 mL/min (>60); Glucose 101 mg/dL (74-106); Potassium 3.5 mmol/L (3.5-5.1); Sodium Level 138 mmol/L (136-145)
[2020-06-02 23:34] LABS: Lactic Acid 1.5 mmol/L (0.4-1.9)
[2020-06-03 00:12] VITALS: BP 156/97; PULSE 90; RESP 18; TEMP 36.8; O2SAT 97
[2020-06-03 00:19] LABS: Bacteria 0 SEEN /hpf (None Seen); Mucous, Urine 0 SEEN /hpf (<or=2+); Red Blood Cells-Urine 0 SEEN /hpf (0-5); Squamous Epithelial Cells - UA 0 SEEN /hpf (0-5); White Blood Cells 0 SEEN /hpf (0-5)
[2020-06-03 00:23] LABS: Color, Urine Yellow (Yellow); Glucose, Dipstick Normal (Normal); Ketone-Dipstick Negative (Negative); Leukocyte Esterase-Dipstick Negative /ul (Negative); Nitrite-Dipstick Negative (Negative); Occult Blood-Urine Negative /ul (Negative); Protein-Dipstick Negative (Negative); Urine Bilirubin Dipstick Negative (Negative); Urine Clarity Clear (Clear); Urine Urobilinogen Normal (Normal)
[2020-06-03 00:24] LABS: Amorphous Sediment 1+
[2020-06-03] MEDS: HYDROmorphone 0.5 MG/0.5 ML SYRINGE IV (00:35)
[2020-06-03 02:56] VITALS: BP 160/99; PULSE 89; RESP 18; O2SAT 97
[2020-06-03] MEDS: oxyCODONE 5 MG Tablet PO (02:59)
[2020-06-03] MEDS: 0.9% Normal Saline 1,000 ML 250 ML IV (03:00)
== END 2020-06-03 03:13 | disposition home or self-care (01) ==
PROVIDERS: Emergency Provider Emergency Medicine; PCP Family Medicine
DX: R51.9 Headache, unspecified (principal); R10.31 Right lower quadrant pain; G89.29 Other chronic pain; Z98.2 Presence of cerebrospinal fluid drainage device
CPT/HCPCS: 80048; 81001; 83605; 85025; 87040; 87426; 96361; 96365; 96366; 96367; 96375; 99284; J7030; J7040; A4216

== ENCOUNTER 2020-06-18 15:59 | Emergency (ER) | payer OTHER, SELFPAY ==
[2020-06-18] VITALS (9 sets, daily range): BP systolic 126–178; BP diastolic 64–111; PULSE 66–100; RESP 10–20; TEMP 36.1–37.3; O2SAT 80–100; BMI 36.3
--- NOTE | 2020-06-18 16:50 | CT_ITS ---
EXAMINATION : Head CT w/out contrast HISTORY : Pain COMPARISON : 05/06/2020 TECHNIQUE : Multiple contiguous axial images were obtained from the skull base to the vertex without intravenous contrast. A radiation dose optimization technique was used for this scan. FINDINGS : The ventricles and sulci are normal in size. There is no evidence for acute intracranial hemorrhage, mass effect, or midline shift. There is no extra-axial fluid collection. There is normal palacio-white differentiation, without CT evidence of acute ischemia or infarct. Chronic occipital craniotomy. Postsurgical changes in the right frontoparietal scalp. Stable cerebellar arachnoid cyst. Mucosal thickening of the ethmoid air cells. The orbits are unremarkable. The mastoid air cells are well-aerated. CT/Brain/Head without Contrast IMPRESSION: No acute abnormalities. Interval removal of ventricular shunt with postsurgical changes in the right frontoparietal scalp. Stable cerebellar arachnoid cyst. Ethmoid sinusitis. Electronically Signed: Gualberto Angelo MD at 17:37 EDT Tel , Service support ,
[2020-06-18] MEDS: 0.9% Normal Saline 1,000 ML 1000 ML IV (17:04)
[2020-06-18] MEDS: Ondansetron 4 MG/2 ML Vial IV (17:05)
[2020-06-18] MEDS: HYDROmorphone 1 MG/ML Syringe IV ×5 (17:06→23:21)
[2020-06-18 17:23] LABS: Absolute Lymphocyte Count 3.49 X10^3/uL (0.83-4.51); Absolute Neutrophil Count 5.4 X10^3/uL (2.0-7.7); Basophil# 0.08 X10^3/uL; Basophil% 0.8 % (0-1); Eosinophil# 0.36 X10^3/uL; Eosinophils% 3.5 % (0-5); Hematocrit 48.7 % (40-54); Hemoglobin 16.3 g/dL (13.0-16.5); Lymphocyte # 3.49 X10^3/ul (4.0); Lymphocyte % 34.1 % (19-41); Mean Corp Hgb Conc 33.5 g/dL (32-36); Mean Corpuscular Hgb 27.8 pg (27.0-32.0); Mean Corpuscular Volume 83.1 fL (80-94); Mean Platelet Vol. 9.2 fl (6.2-12.0); Monocyte# 0.84 X10^3/uL; Monocyte% 8.2 % (0-10); NRBC Flagged by Analyzer 0 % (0-5); Neutrophil % 52.8 % (47-70); Platelet Count 311 K/mm3 (150-450); RBC Distribution Width CV 14.6 % (11.6-14.6); RBC Distribution Width SD 41.1 fl (35.1-43.9); Red Blood Count 5.86 M/mm3 (4.6-6.2); White Blood Count 10.2 K/mm3 (4.4-11.0)
[2020-06-18 17:29] LABS: ALB/GLOB Ratio 1.1 RATIO (0.9-2.4); AST(SGOT) 13 U/L (15-37); Alanine Aminotransfer ALT/SGPT 20 U/L (16-61); Albumin, Serum 3.9 g/dL (3.2-5.0); Alkaline Phosphatase 83 U/L (45-117); Anion Gap 6 (5-15); BUN 14 mg/dL (7-18); BUN/Creat Ratio 8.5 RATIO (10-20); Calcium,Total 8.6 mg/dL (8.5-10.1); Chloride 102 mmol/L (98-107); Creatinine, Serum 1.65 mg/dL (0.70-1.30); EST Glomerular Filtration Rate 51 mL/min (>60); Est Glom Filt Rate - Afr Amer 61 mL/min (>60); Estimated Creatinine Clearance 70.62 ml/min; Globulin 3.7 g/dL (2.2-4.2); Glucose 137 mg/dL (74-106); Potassium 3.1 mmol/L (3.5-5.1); Protein, Total 7.6 g/dL (6.4-8.2); Sodium Level 136 mmol/L (136-145)
[2020-06-18] MEDS: Metoclopramide 10 MG/2 ML Vial 5 MG IV (18:15)
[2020-06-18] MEDS: HYDROmorphone 1 MG/ML Syringe 2 MG IV (18:17)
[2020-06-18] MEDS: DiphenhydrAMINE 50 MG/ML Syringe 25 MG IV (18:23)
[2020-06-18 20:21] LABS: Body Fluid Mononuclear WBC # 0.093 10^3/uL; Body Fluid Mononuclear WBC % 5.4 %; Body Fluid Polynuclear WBC # 1.604 10^3/uL; Body Fluid Polynuclear WBC % 94.6 %; Total Cell Count CSF 1.697 10^3/uL; White Count, CSF 1.697 10^3/uL (0.000-0.005)
[2020-06-18 20:25] LABS: Glucose Spinal Fluid 45 mg/dL (40-75)
[2020-06-18 20:40] LABS: Auto B Fluid Analyzer BKGD Ct COUNTS W/IN LIMITS (W/IN LIMITS); CSF Color COLORLESS (Colorless); RBC Count, Spinal Fluid 67 /mm-3 (None seen)
[2020-06-18 20:54] LABS: Appearance CSF (character) SL HAZY (Clear)
[2020-06-18 20:57] LABS: Tested Tube # 4
--- NOTE | 2020-06-18 21:25 | ED.VIS.GEN ---
History of Present Illness Chief Complaint: Headache Informant: Patient Narrative: Patient presents with headache that started gradually earlier on today. No fever or chills. No cough or congestion. He recently had a shunt removal. He denies any neurological symptoms no weakness, no vision changes. He feels like there is increased intracranial pressure. Past medical history: History of hydrocephalus with recent shunt removal Medications: Reviewed Social history: Noncontributory Review of systems: All systems negative except as indicated General: Denies: Fever Eyes: Denies: Visual changes - bilaterally ENT: Denies: Rhinorrhea, Sore throat Cardiovascular: Denies: Chest pain Respiratory: Denies: Dyspnea, Cough Gastrointestinal: Denies: Abdominal pain, Nausea, Vomiting Genitourinary: Denies: Dysuria Musculoskeletal: Denies: Myalgias Skin: Denies: Rash Neurological: Headache as in HPI. No focal weakness Psych: Reports: negative Hematologic: Denies: Easy bruising, Easy bleeding Physical exam General: Patient does appear in some distress. Head: Normocephalic, Atraumatic Eyes: Conjunctiva not pale ENT: Moist mucous membranes Neck: Supple, is some posterior tenderness but negative Kernig's Brezinski's and jolt test. Cardiovascular: Regular rate, Regular rhythm Respiratory: No distress, CTA bilaterally Abdomen: Soft, Nontender, Nondistended Back: Nontender, Normal Inspection. Negative for: CVA tenderness Extremities: Nontender, No edema Skin: Normal color, No rash Neurological: Alert, Normal Strength, Normal Sensation Psychological: Normal affect Past Medical History - Allergies and Home Meds Allergies/Adverse Reactions: Allergies NSAIDS (Non-Steroidal Anti-Inflamma Allergy (Verified 06/18/20 16:02) Rash oxycodone Allergy (Verified 06/18/20 16:02) Vomiting poison amalia extract Allergy (Verified 06/18/20 16:02) Hives ibuprofen Adverse Reaction (Verified 06/18/20 16:02) Other ULCERS IN/ON MOUTH AND PENIS Primary Care Physician: Celestino Rodriges MD [Primary Care Provider] - Surgical History: appendectomy, - - Patient has had a DIE MAKER STAMPING shunt placed approximately 2 months ago Smoking Status: Current every day smoker - Family History Maternal Family History: Reports: No pertinent history Physical Exam Vital Signs/Narrative: Vital Signs Pulse Resp BP Pulse Ox 06/18/20 20:24 66 12 94 06/18/20 19:50 97 20 H 98 06/18/20 18:53 100 06/18/20 18:51 85 10 L 164/82 H 80 06/18/20 18:24 77 20 H 178/111 H 97 Diagnostic/Tx/Re-eval - Medical Decision Making Patient has a normal emergency department initial work-up, he has a normal white count CT is negative. I reevaluated him he still had quite a bit of pain. He did not have any neck stiffness or meningismus at this time. However because of the intractable pain and recent shunt removal I decided to do a lumbar puncture. The lumbar puncture was positive. The Gram stain did show gram-negative diplococci. Patient was started on 2 g of IV Rocephin. I did not give steroids due to recent surgery. Otherwise I talked to neurosurgery at [facility]. Patient will be transferred. Currently he is neurologically intact.. Procedures Procedure(s): Lumbar puncture. Written consent. Indication intractable headache. Patient was draped in the usual way. Iodine was used. Sterile conditions. Patient was upright. 5 mL of 1% lidocaine were used. Insertion at the L3-L4 level. The CSF fluid was slightly turbid in the first tube but cleared with tubes 2 through 4. Patient tolerated procedure well. ED Disposition - Plan for ED Patient: Disposition: [facility] Diagnosis: Meningitis after procedure Referrals: Celestino Rodriges MD [Primary Care Provider] -
[2020-06-18] MEDS: Ceftriaxone 2 GM in 0.9% NS 50 ML Minibag x1 IV (21:50)
--- NOTE | 2020-06-18 23:55 | ED.RN ---
TRANSPORT UPDATE, STILL 1 HR OUT, FIRST CALL AT 22:12
[2020-06-19] MEDS: HYDROmorphone 1 MG/ML Syringe IV ×2 (00:27→02:28)
--- NOTE | 2020-06-19 00:34 | ED.RN ---
CALLED PHYSICIANS ON UPDATE FOR TRANSFER GOING TO BE AN HOUR. TIME NOW 0032
[2020-06-19 01:17] VITALS: BP 150/64; PULSE 93; RESP 16; O2SAT 99
[2020-06-19 01:19] VITALS: PULSE 100; RESP 12; O2SAT 100
[2020-06-19 13:09] LABS: Pathologist Review Reviewed
[2020-06-22 16:08] LABS: HSV 1 By PCR Negative (Negative)
[2020-06-22 16:16] LABS: HSV 2 By PCR Negative (Negative)
== END 2020-06-19 02:34 | disposition short-term general hospital (02) ==
PROVIDERS: Emergency Provider Emergency Medicine; PCP Family Medicine
DX: G00.9 Bacterial meningitis, unspecified (principal); F17.200 Nicotine dependence, unspecified, uncomplicated; Z88.5 Allergy status to narcotic agent; Z88.6 Allergy status to analgesic agent; Z98.2 Presence of cerebrospinal fluid drainage device
CPT/HCPCS: 62270; 70450; 80053; 82945; 84157; 85025; 87070; 87077; 87186; 87205; 87426; 87529; 89050; 89051; 99285; J7050; A4216; J0696; J2405; J3475; J3490

== ENCOUNTER → 2020-07-23 17:00 | Outpatient (CLI) | payer OTHER, SELFPAY ==
[2020-06-18 16:00] VITALS: BMI 36.3
== END ==
PROVIDERS: PCP Family Medicine; Referring Provider Family Medicine; Visit Provider Family Medicine
DX: E29.1 Testicular hypofunction (principal)
CPT/HCPCS: 36415; 84403

== ENCOUNTER → 2020-07-31 14:40 | Outpatient (CLI) | payer OTHER, SELFPAY ==
[2020-06-18 16:00] VITALS: BMI 36.3
== END ==
PROVIDERS: PCP Family Medicine; Referring Provider Family Medicine; Visit Provider Family Medicine
DX: E29.1 Testicular hypofunction (principal)
CPT/HCPCS: 36415; 84403

== ENCOUNTER → 2021-01-07 14:00 | Outpatient (CLI) | payer OTHER, SELFPAY ==
[2021-01-07 15:51] LABS: PSA,Total - Annual Screen 1.12 ng/mL (0.00-4.00)
== END ==
PROVIDERS: PCP Family Medicine; Referring Provider Family Medicine; Visit Provider Family Medicine
DX: E29.1 Testicular hypofunction (principal)
CPT/HCPCS: 36415; 84153; 84403; G0103

== ENCOUNTER → 2021-02-01 12:00 | Outpatient (CLI) | payer OTHER, SELFPAY ==
[2021-02-01 15:51] LABS: Anion Gap 7 (5-15); BUN 12 mg/dL (7-18); BUN/Creat Ratio 8.1 RATIO (10-20); Calcium,Total 8.9 mg/dL (8.5-10.1); Chloride 106 mmol/L (98-107); Creatinine, Serum 1.49 mg/dL (0.70-1.30); EST Glomerular Filtration Rate 57 mL/min (>60); Est Glom Filt Rate - Afr Amer 69 mL/min (>60); Glucose 107 mg/dL (74-106); Potassium 3.9 mmol/L (3.5-5.1); Sodium Level 138 mmol/L (136-145)
== END ==
PROVIDERS: PCP Family Medicine; Visit Provider Family Medicine
DX: E66.9 Obesity, unspecified (principal)
CPT/HCPCS: 36415; 80048; 84443

== ENCOUNTER → 2021-11-26 | Outpatient (CLI) | payer OTHER, SELFPAY ==
[2021-11-26 17:44] LABS: Absolute Lymphocyte Count 2.92 X10^3/uL (0.83-4.51); Absolute Neutrophil Count 5.8 X10^3/uL (2.0-7.7); Basophil# 0.06 X10^3/uL; Basophil% 0.6 % (0-1); Eosinophil# 0.35 X10^3/uL; Eosinophils% 3.5 % (0-5); Hematocrit 53.7 % (40-54); Hemoglobin 17.9 g/dL (13.0-16.5); Lymphocyte # 2.92 X10^3/ul (0.83-4.51); Lymphocyte % 29.2 % (19-41); Mean Corp Hgb Conc 33.3 g/dL (32-36); Mean Corpuscular Hgb 29.2 pg (27.0-32.0); Mean Corpuscular Volume 87.7 fL (80-94); Mean Platelet Vol. 9.5 fl (6.2-12.0); Monocyte# 0.81 X10^3/uL; Monocyte% 8.1 % (0-10); NRBC Flagged by Analyzer 0 % (0-5); Neutrophil # 5.81 X10^3/uL (2.7-7.7); Platelet Count 297 K/mm3 (150-450); RBC Distribution Width SD 41.5 fl (35.1-43.9); Red Blood Count 6.12 M/mm3 (4.6-6.2)
[2021-11-26 18:05] LABS: Anion Gap 5 (5-15); BUN 9 mg/dL (7-18); BUN/Creat Ratio 5.4 RATIO (10-20); Chloride 102 mmol/L (98-107); Cholesterol 177 mg/dL (200); Creatinine, Serum 1.66 mg/dL (0.70-1.30); EST Glomerular Filtration Rate 50 mL/min (>60); Est Glom Filt Rate - Afr Amer 60 mL/min (>60); Glucose 74 mg/dL (74-106); High Density Lipoprotein 25 mg/dL; PSA,Total - Annual Screen 1.09 ng/mL (0.00-4.00); Potassium 4.2 mmol/L (3.5-5.1); Sodium Level 137 mmol/L (136-145); Triglycerides 275 mg/dL; Very Low Density Lipoprotein 55 mg/dL (5-40)
[2021-12-02 08:25] LABS: Estrogen, Total, Serum 253 pg/mL (56-213)
== END | disposition home or self-care (01) ==
LOC: MFPLAB 15:11
PROVIDERS: PCP Family Medicine; Referring Provider Family Medicine; Visit Provider Family Medicine
DX: Z00.00 Encounter for general adult medical examination without abnormal findings (principal); E29.1 Testicular hypofunction
CPT/HCPCS: 36415; 80048; 80061; 82672; 84153; 84403; 85025; G0103

== ENCOUNTER → 2022-01-31 | Outpatient (CLI) | payer OTHER, SELFPAY ==
[2022-01-31 09:59] LABS: Hematocrit 50.9 % (40-54); Mean Corp Hgb Conc 33.4 g/dL (32-36); Mean Corpuscular Volume 86.9 fL (80-94); Mean Platelet Vol. 9.4 fl (6.2-12.0); Platelet Count 231 K/mm3 (150-450); RBC Distribution Width CV 12.4 % (11.6-14.6); RBC Distribution Width SD 39.5 fl (35.1-43.9); Red Blood Count 5.86 M/mm3 (4.6-6.2); White Blood Count 4.3 K/mm3 (4.4-11.0)
[2022-01-31 10:41] LABS: ALB/GLOB Ratio 1.1 RATIO (0.9-2.4); AST(SGOT) 16 U/L (15-37); Alanine Aminotransfer ALT/SGPT 14 U/L (16-61); Albumin, Serum 3.9 g/dL (3.2-5.0); Alkaline Phosphatase 59 U/L (45-117); Anion Gap 6 (5-15); BUN 10 mg/dL (7-18); BUN/Creat Ratio 6.5 RATIO (10-20); Calcium,Total 8.4 mg/dL (8.5-10.1); Chloride 104 mmol/L (98-107); Cholesterol 183 mg/dL (200); Creatinine, Serum 1.53 mg/dL (0.70-1.30); EST Glomerular Filtration Rate 55 mL/min (>60); Est Glom Filt Rate - Afr Amer 66 mL/min (>60); Estradiol 30.5 pg/mL; Follicle Stimulating Hormone < 0.2 mIU/mL; Free T3 3.5 pg/mL (2.18-3.98); Globulin 3.4 g/dL (2.2-4.2); Glucose 120 mg/dL (74-106); High Density Lipoprotein 33 mg/dL; Luteinizing Hormone < 0.2 mIU/mL; PSA,Total - Annual Screen 1.15 ng/mL (0.00-4.00); Potassium 3.7 mmol/L (3.5-5.1); Protein, Total 7.3 g/dL (6.4-8.2); Sodium Level 139 mmol/L (136-145); T4 Free Direct 0.76 ng/dL (0.76-1.46); Triglycerides 172 mg/dL; Very Low Density Lipoprotein 34 mg/dL (5-40)
== END | disposition home or self-care (01) ==
PROVIDERS: PCP Family Medicine
DX: E29.1 Testicular hypofunction (principal)
CPT/HCPCS: 80053; 80061; 82627; 82670; 83001; 83002; 84153; 84270; 84305; 84402; 84403; 84439; 84443; 84481; 85027; 82626; G0103

== ENCOUNTER → 2022-09-23 | Outpatient (CLI) | payer OTHER, SELFPAY ==
[2022-09-23 16:14] LABS: Hematocrit 53.9 % (40-54); Hemoglobin 17.5 g/dL (13.0-16.5); Mean Corp Hgb Conc 32.5 g/dL (32-36); Mean Corpuscular Hgb 28.6 pg (27.0-32.0); Mean Corpuscular Volume 88.1 fL (80-94); Mean Platelet Vol. 9.4 fl (6.2-12.0); Platelet Count 248 K/mm3 (150-450); RBC Distribution Width CV 12.8 % (11.6-14.6); RBC Distribution Width SD 41.3 fl (35.1-43.9); Red Blood Count 6.12 M/mm3 (4.6-6.2); White Blood Count 7.1 K/mm3 (4.4-11.0)
[2022-09-23 16:52] LABS: ALB/GLOB Ratio 1.1 RATIO (0.9-2.4); AST(SGOT) 15 U/L (15-37); Alanine Aminotransfer ALT/SGPT 13 U/L (16-61); Albumin, Serum 3.8 g/dL (3.2-5.0); Alkaline Phosphatase 69 U/L (45-117); Anion Gap 4 (5-15); BUN 10 mg/dL (7-18); BUN/Creat Ratio 6.4 RATIO (10-20); Calcium,Total 8.4 mg/dL (8.5-10.1); Chloride 102 mmol/L (98-107); Cholesterol 184 mg/dL (200); Creatinine, Serum 1.57 mg/dL (0.70-1.30); EST Glomerular Filtration Rate 53 mL/min (>60); Est Glom Filt Rate - Afr Amer 64 mL/min (>60); Estradiol 23.9 pg/mL; Globulin 3.6 g/dL (2.2-4.2); Glucose 130 mg/dL (74-106); High Density Lipoprotein 34 mg/dL; Potassium 3.8 mmol/L (3.5-5.1); Protein, Total 7.4 g/dL (6.4-8.2); Sodium Level 137 mmol/L (136-145); T4 Free Direct 0.72 ng/dL (0.76-1.46); Triglycerides 214 mg/dL; Very Low Density Lipoprotein 43 mg/dL (5-40)
== END | disposition home or self-care (01) ==
PROVIDERS: PCP Family Medicine
DX: E29.1 Testicular hypofunction (principal); Z12.5 Encounter for screening for malignant neoplasm of prostate
CPT/HCPCS: 36415; 80053; 80061; 82670; 84153; 84270; 84402; 84403; 84439; 84443; 84481; 85027; G0103

== ENCOUNTER → 2023-05-26 | Outpatient (CLI) | payer OTHER, SELFPAY ==
[2023-05-26 10:54] LABS: Hematocrit 54.5 % (40-54); Hemoglobin 18.4 g/dL (13.0-16.5); Mean Corp Hgb Conc 33.8 g/dL (32-36); Mean Corpuscular Hgb 28.4 pg (27.0-32.0); Mean Platelet Vol. 9.4 fl (6.2-12.0); Platelet Count 263 K/mm3 (150-450); RBC Distribution Width CV 12.9 % (11.6-14.6); RBC Distribution Width SD 39.4 fl (35.1-43.9); Red Blood Count 6.49 M/mm3 (4.6-6.2); White Blood Count 5.8 K/mm3 (4.4-11.0)
[2023-05-26 12:06] LABS: Scan Indicated on CBC? Y/N YES- FLAGS NOTED
[2023-05-26 12:17] LABS: ALB/GLOB Ratio 1.1 RATIO (0.9-2.4); AST(SGOT) 20 U/L (15-37); Alanine Aminotransfer ALT/SGPT 19 U/L (16-61); Alkaline Phosphatase 68 U/L (45-117); Anion Gap 8 (5-15); BUN 11 mg/dL (7-18); BUN/Creat Ratio 7.3 RATIO (10-20); Calcium,Total 8.8 mg/dL (8.5-10.1); Chloride 103 mmol/L (98-107); Creatinine, Serum 1.51 mg/dL (0.70-1.30); EST Glomerular Filtration Rate 55 mL/min (>60); Est Glom Filt Rate - Afr Amer 67 mL/min (>60); Estradiol 26.4 pg/mL; Globulin 3.6 g/dL (2.2-4.2); Glucose 162 mg/dL (74-106); PSA,Total - Annual Screen 1.24 ng/mL (0.00-4.00); Potassium 3.9 mmol/L (3.5-5.1); Protein, Total 7.6 g/dL (6.4-8.2); Sodium Level 139 mmol/L (136-145)
[2023-05-30 13:53] LABS: Pathologist Review Reviewed
[2023-06-04 18:07] LABS: Insulin Like Growth Factor 165 ng/mL (90-278); Sex Hormone-binding Globulin 11.5 nmol/L (16.5-55.9); Testosterone, % Free 5.91 % (1.50-4.20); Testosterone, Free 24.53 ng/dL (5.00-21.00); Testosterone, Total 415 ng/dL (264-916)
== END | disposition home or self-care (01) ==
PROVIDERS: PCP Family Medicine
DX: E29.1 Testicular hypofunction (principal)
CPT/HCPCS: 36415; 80053; 82627; 82670; 84153; 84270; 84305; 84402; 84403; 85027; 82626; G0103

== ENCOUNTER 2023-10-19 16:17 | Emergency (ER) | payer OTHER, SELFPAY ==
[2023-10-19 16:17] VITALS: BP 158/106; PULSE 104; RESP 18; TEMP 36.1; O2SAT 99; BMI 35.9
--- NOTE | 2023-10-19 16:33 | EDS_ITS ---
HPI History of Present Illness Chief Complaint: Laceration Narrative Narrative: 38-year-old male presents with injury to his right fifth digit that he sustained just prior to arrival. States his trailer hitch fell off the hanna, and hit his right fifth digit. He does not take blood thinners. He is right-hand dominant. He is unsure of his last tetanus immunization. He presents with pain all along his right fifth digit, and laceration on the distal portion. [facility] Medical History (Updated 10/19/23 @ 20:49 by Bret Olea MD) Laceration Home Medications ?Medication ?Instructions ?Recorded ?Last Taken ?Type tramadol 50 mg tablet 50 mg PO DAILY pain 04/07/20 04/07/20 History testosterone cypionate 200 mg/mL 300 mg IM MOTH hormones 04/08/20 04/06/20 History intramuscular oil cephalexin 500 mg capsule 500 mg PO TID #21 caps 10/19/23 Unknown Rx oxycodone 5 mg tablet 5 mg PO Q6H PRN pain 3 days #12 10/19/23 Unknown Rx tabs Allergy/AdvReac Type Severity Reaction Status Date / Time NSAIDS (Non-Steroidal Allergy Rash Verified 06/18/20 16:02 Anti-Inflamma oxycodone Allergy Vomiting Verified 06/18/20 16:02 poison amalia extract Allergy Hives Verified 06/18/20 16:02 ibuprofen AdvReac Other Verified 06/18/20 16:02 Social History Smoking Status: Current every day smoker tobacco type: cigarettes ROS ROS ED ROS Narrative Focused review of systems reveals pain, and laceration to right fifth digit. Denies other injuries. EXAM Physical Exam Narrative Exam Narrative: Afebrile. Vital signs noted. Cardiovascular semination reveals a mild t achycardia. Lungs are clear to auscultation bilaterally. Abdomen soft nontender with normoactive bowel sounds. Inspection of the right fifth digit reveals laceration along the medial aspect of the right fifth digit with tenderness along the proximal phalanx, no pain in the metacarpal area. Palpable radial pulse. Range of motion right fifth digit limited secondary to pain. Const Vital Signs: 10/19/23 16:17 Temperature 97 F L Temperature Source Temporal Pulse Rate 104 H Respiratory Rate 18 Blood Pressure 158/106 H Blood Pressure Mean 123 Pulse Ox 99 Oxygen Delivery Method Room Air MDM MDM MDM Narrative Medical decision making narrative: Differential diagnosis includes but not limited to open fracture right fifth digit versus crush injury/laceration. His tetanus immunization was updated. He was given tramadol which she usually takes for analgesia. His right fifth digit was soaked in sterile water/normal saline. X-rays obtained of the right fifth digit interpreted by myself independently. There is a displaced open tuft fracture of the fifth digit. As the patient does have a laceration on the volar aspect of his fifth digit, his wound was cleansed and he was told of the risk of infection and scarring. 3 simple interrupted sutures were placed using 4.0 Ethilon after lidocaine 1% was used as a local anesthetic. He had been soaking his finger, and a also cleansed it with Shur-Clens and normal saline. Patient tolerated procedure well. He was preferring that his finger be wrapped in Vaseline gauze and follow-up with plastics. I was able to discuss the patient with Dr. Guido foy with plastic surgery who prefers that the nailbed be removed and nailbed repair be performed. Patient is agreeable to this, and procedure will be performed by Dr. Calix. Patient had been given tramadol for analgesia and his first dose of cephalexin as this is an open tuft fracture. After the procedure, he was given an oxycodone because his allergy to it was listed as vomiting and he had stated to plastics that this was because he had bacterial meningitis at the time. He was written a prescription for oxycodone and for cephalexin to take 3 times a day for the next 7 days. He will follow-up with plastic surgery/hand on Monday. Return instructions to the emergency department have been reviewed. Disposition is discharged home in stable condition. History & Record Review Discussion w/independent historian: Patient Management Discussion w/another healthcare provider: [employer] (Plastic surgery/hand) Discharge Plan Triage Chief Complaint: Laceration ED Provider: Bret Olea Dx/Rx/DC Orders Clinical Impression: Open fracture of tuft of distal phalanx of finger Instructions: ED Fracture, Finger, Open, ED Laceration, Hand: All Closures Prescriptions: New oxycodone 5 mg tablet 5 mg PO Q6H PRN (Reason: pain) 3 Days Qty: 12 0RF cephalexin 500 mg capsule 500 mg PO TID Qty: 21 0RF No Action tramadol 50 MG tablet 50 mg PO DAILY testosterone cypionate 200 MG/ML oil 300 mg IM MOTH Primary Care Provider: Celestino Rodriges Referrals: Celestino Rodriges MD [Primary Care Provider] - Guido Calix MD [Med Staff - Active Staff] - 10/24/23 Activity Restrictions/Additional Instructions: Have the 3 sutures removed from your finger on the volar aspect and approximately 7 days, or have Dr. Chen remove them on Monday when you see him. Follow-up on Monday for another examination. Take the antibiotics as directed. Print Language: Slovenian Disposition Disposition: Home, Self Care Discharge Date/Time: 10/19/23 21:04
[2023-10-19] MEDS: traMADol 50 MG Tablet PO (16:46)
[2023-10-19] MEDS: Diphth,Pertuss(Acell),Tet Vac 0.5 ML Vial IM (16:47)
[2023-10-19] MEDS: Lidocaine 1% (20 ml mdv) 20 ML Vial INFILT (16:47)
--- NOTE | 2023-10-19 17:00 | RAD_ITS ---
INDICATION: Trauma -- Fifth digit EXAMINATION/TECHNIQUE: X-RAY - RIGHT HAND XR Fingers Min 2 Views 3 VIEWS COMPARISON: None. FINDINGS: SOFT TISSUES: Soft tissue swelling distal fifth digit. No radiopaque foreign body. BONES/JOINTS: Mildly displaced fracture distal tuft fifth digit. Joint spaces anatomically aligned. RAD/Finger(s) Min 2 Views IMPRESSION: Displaced fracture fifth distal tuft. Electronically Signed: Riccardo Willams MD at 18:16 EDT ,
[2023-10-19] MEDS: Cephalexin 250 MG Capsule 500 MG PO (18:57)
[2023-10-19 20:40] VITALS: BP 154/108; PULSE 89; RESP 16; TEMP 36.6; O2SAT 97
--- NOTE | 2023-10-19 20:40 | CON.PCM.SX_ITS ---
Assessment & Plan Assessment/Plan (1) Open fracture of tuft of distal phalanx of finger: (2) Laceration: (3) Open fracture of tuft of distal phalanx of finger: PLAN: Plan Patient has an open fracture of the right small finger at the level of the tuft affecting the nail matrix (nailbed laceration) as well as a small volar laceration The fracture was washed out and the nail matrix reapproximated thus reducing the fracture at bedside, please see separate operative note. The volar laceration was closed as well. Photo consent and written consent for the procedure were obtained, and a timeout was performed. His tetanus was updated in the ED today He is being discharged on 1 week of Keflex He is splinted with an AlumaFoam splint. He is to leave the dressings on and follow-up with me in clinic on 24 October 2023. He is not to lift with this hand (he understands plan). Patient happy with our plan. HPI Consult Data Date of Consult: 10/19/23 HPI Narrative HPI Narrative: ARSENIO JUAREZ, is a [id number] M who presents with a right small finger nailbed laceration with associated tuft fracture. Tonight at approximately 5 PM he got his finger smashed in a trailer hitch. His tetanus was updated. Emergency room physician examine him and attempted a washout and laceration repair, he was subsequently stopped as the patient was complaining of severe pain and wanted to see a hand surgeon. Today in the emergency department, the patient is complaining of sharp severe pain in the affected extremity, worsened by movement and improved with rest and elevation. 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[employer] [facility] Medical History (Updated 10/19/23 @ 20:49 by Bret Olea MD) Laceration Home Medications ?Medication ?Instructions ?Recorded ?Last Taken ?Type tramadol 50 mg tablet 50 mg PO DAILY pain 04/07/20 04/07/20 History testosterone cypionate 200 mg/mL 300 mg IM MOTH hormones 04/08/20 04/06/20 History intramuscular oil cephalexin 500 mg capsule 500 mg PO TID #21 caps 10/19/23 Unknown Rx oxycodone 5 mg tablet 5 mg PO Q6H PRN pain 3 days #12 10/19/23 Unknown Rx tabs Allergy/AdvReac Type Severity Reaction Status Date / Time NSAIDS (Non-Steroidal Allergy Rash Verified 06/18/20 16:02 Anti-Inflamma oxycodone Allergy Vomiting Verified 06/18/20 16:02 poison amalia extract Allergy Hives Verified 06/18/20 16:02 ibuprofen AdvReac Other Verified 06/18/20 16:02 Social History Smoking Status: Current every day smoker tobacco type: cigarettes Medical History (Updated 10/19/23 @ 20:49 by Bret Olea MD) Laceration Social History Smoking Status: Current every day smoker tobacco type: cigarettes Physical Exam Narrative Right upper extremity Stellate laceration (2cm) on the germinal matrix nailbed, large subungual hematoma. Avulsion of the epidermis (partial thickness) over P3 at the level of the eponychium. small volar laceration of the fingertip, 1cm Tenderness to palpation only in the small finger, otherwise no other affected parts of the right upper extremity from the trauma. Motor: He is able to bend the small finger at the DIP joint, PIP joint, and MP joint (FDS isolated and FDP isolated both are working. He has an FDS to the small finger). He is able to hyperextend his finger (no mallet finger) Sensation: He has sensation in the radial and ulnar borders of the distal small finger tip. Vascular: The right small fingertip is warm and well-perfused with good capillary refill. Const alert and oriented x3 General Appearance: cooperative HEENT HEENT Narrative: Previous scars from neurosurgery Eyes PERRL Neck full ROM Resp normal respiratory effort Cardio Rate: regular rate GI non-distended Skin no rashes or lesions noted Imaging Radiology Impression Personally reviewed the imaging. Per my read, the shaft and the base of the distal phalanx were not involved. Open fracture with tuft fracture right small, Finger X-Ray 10/19/23 17:00 IMPRESSION: Displaced fracture fifth distal tuft. Electronically Signed: Riccardo Willams MD at 18:16 EDT , Charges/Coding Visit Charges Office Visits / Consults: [id number] IP Consult L5 (Decision was made to perform a surgical procedure. I had to review history, examined the patient extensively, and review imaging. ) Patient Allergies Allergies Allergies: Allergies NSAIDS (Non-Steroidal Anti-Inflamma Allergy (Verified 06/18/20 16:02) Rash oxycodone Allergy (Verified 06/18/20 16:02) Vomiting poison amalia extract Allergy (Verified 06/18/20 16:02) Hives ibuprofen Adverse Reaction (Verified 06/18/20 16:02) Other ULCERS IN/ON MOUTH AND PENIS
--- NOTE | 2023-10-19 20:55 | PCM.OP.BLANK ---
Problems Associated Problem List Diagnoses (1) Open fracture of tuft of distal phalanx of finger: Operative Report Date of Procedure: 10/19/23 Surgeon: Guido Calix MD Preoperative diagnosis: Right small finger open fracture and nailbed laceration, and volar 1 cm laceration on right small finger Postop diagnosis: Same Procedure performed #1: Irrigation and washout of right small finger open fracture (small finger tuft) (CPT code: 77837) #2: Right small finger nailbed laceration repair (CPT code: 15784) #3: Right small finger volar laceration repair, simple 1 cm (CPT code: 44079) Operative findings: Severe stellate laceration to the right small finger nail bed with an open fracture (broken tuft) at the base of the wound. The fracture was approximated well by repair of the overlying soft tissue with a nailbed laceration repair. Indication: Jose Hutchinson is a 38-year-old with a crush injury to his right small finger. It is an open fracture to the tuft/nailbed. Presents today for washout and definitive repair. Procedure: Writtenl consent was obtained from the patient, for removal of nail plate. Allergies to medications were reviewed, and confirmed that the patient did not have allergy to 1% lidocaine or Betadine. A total of 8 mL of 1% lidocaine was drawn up, and digital block was performed at the base of the right small finger. Following that, a finger tourniquet was applied to the base of the digit (care was taken to remove it at the end of the case). The area was prepped with betadine in the usual sterile fashion, and a [place] elevator was used to bluntly separate the nail plate from the underlying nailbed. The proximal nailfold was also bluntly from the proximal portion of the nail plate. After this, the entire nail plate was grasped with a hemostat, and removed. There is a stellate laceration of the nailbed and a significant crush injury. There is underlying bone at the base of the wound, but no foreign bodies. The wound was examined with loop magnification. The wound was irrigated with copious amounts of normal saline to washout the wound thoroughly (500 cc) for washout of the open fracture. Attention was then turned to closing the nailbed laceration. Total length of the stellate incision was about 2 cm. The nailbed was closed with several interrupted 5-0 Chromic Gut sutures. A small piece of aluminum from the suture pack was trimmed to fit and sutured into the proximal nail fold, held in place using 2 5-0 chromic sutures, with plan to splint open the eponychium to promote nail growth. Attention was then turned to the volar laceration which was 1 cm in length (simple laceration repair 1 cm). The sutures were removed from the previous attempt at closure, and this wound was washed out thoroughly with normal saline and closed with a 5-0 interrupted chromic gut suture. The finger tourniquet was removed, and the wound cleaned with hydrogen peroxide. 2x2 Xeroform was applied over the incision, followed by Phoenix Burgess and Nancy (loosely). The patient tolerated the procedure well without any immediate complication. All counts were correct at the conclusion of the procedure. Postoperative plan: Patient was instructed to return to clinic on Monday, 24 October 2023, to see me. He will leave the dressing in place until and keep it dry. He was discharged on Keflex for 1 week. Procedures Add on/Second Study CF Procedures 9xxxx Addon/2nd Proc: Other Procedure See Report
[2023-10-19] MEDS: oxyCODONE 5 MG Tablet PO (21:03)
== END 2023-10-19 21:04 | disposition home or self-care (01) ==
PROVIDERS: Emergency Provider Emergency Medicine; PCP Family Medicine; Visit Provider Emergency Medicine
DX: S62.636B Displaced fracture of distal phalanx of right little finger, initial encounter for open fracture (principal); S60.151A Contusion of right little finger with damage to nail, initial encounter; W23.1XXA Caught, crushed, jammed, or pinched between stationary objects, initial encounter; F17.220 Nicotine dependence, chewing tobacco, uncomplicated; Z23 Encounter for immunization
CPT/HCPCS: 12001; 11760; 73140; 90715; 99284

== ENCOUNTER → 2023-11-09 | Outpatient (CLI) | payer OTHER, SELFPAY ==
--- NOTE | 2023-11-09 11:00 | RAD_ITS ---
STUDY: X-RAY - RIGHT HAND, ATTENTION FIFTH FINGER REASON FOR EXAM: Male, 38 years old. f/U TECHNIQUE: 3 view(s) of the finger were obtained. COMPARISON: Comparison is made with prior study dated October 19, 2023. FINDINGS: Normal metacarpal head. Normal metacarpophalangeal joint. Normal proximal phalanx. Normal middle phalanx. Stable mildly displaced fracture of the tuft of the distal phalanx of the fifth digit. Normal proximal interphalangeal joint. Normal distal interphalangeal joint. RAD/Finger(s) Min 2 Views IMPRESSION: Stable examination. Electronically Signed: Nnamdi Bergreon MD at 11:20 EDT ,
== END | disposition home or self-care (01) ==
LOC: RAD 10:54
PROVIDERS: PCP Family Medicine; Referring Provider Surgery Plastic and Reconstructive Surgery; Visit Provider Surgery Plastic and Reconstructive Surgery
DX: S62.639B Displaced fracture of distal phalanx of unspecified finger, initial encounter for open fracture (principal)
CPT/HCPCS: 73140

== ENCOUNTER 2023-11-17 17:04 | Inpatient (IN) | payer OTHER, SELFPAY ==
[2023-11-17 18:54] VITALS: BMI 34.5
[2023-11-17 19:52] LABS: Anion Gap 8 (5-15); BUN 12 mg/dL (7-18); Calcium,Total 8.7 mg/dL (8.5-10.1); Chloride 97 mmol/L (98-107); Creatinine, Serum 1.71 mg/dL (0.70-1.30); EST Glomerular Filtration Rate 48 mL/min (>60); Est Glom Filt Rate - Afr Amer 58 mL/min (>60); Glucose 321 mg/dL (74-106); Potassium 3.3 mmol/L (3.5-5.1); Sodium Level 133 mmol/L (136-145)
[2023-11-17] MEDS: Lactated Ringers 1,000 ML 75 ML IV (20:17)
[2023-11-17] MEDS: oxyCODONE 5 MG Tablet PO (20:28)
[2023-11-17] MEDS: Acetaminophen 500 MG Tablet PO (20:28)
[2023-11-17 20:30] VITALS: BP 143/81; PULSE 105; RESP 18; TEMP 36.8; O2SAT 97
[2023-11-17] MEDS: Vancomycin HCl 2,000 MG in 0.9% Normal Saline (500mL Bag) 500 ML 250 MG IV (22:20)
[2023-11-17] MEDS: Piperacil/Tazobactam 3.375 GM in 0.9% Normal Saline (50mL MB+) 50 ML IV (22:36)
[2023-11-17] MEDS: 0.9% Saline Lock 10 ML Syringe IV (22:36)
--- NOTE | 2023-11-17 22:45 | PCM.RX.CS ---
Consult Antibiotic Management Pharmacy has been consulted to manage selected antibiotic: Vancomycin Type of Intervention Type of Consult: New start Labs Labs: Sodium 133 mmol/L (136-145) L 11/17/23 19:21 Potassium 3.3 mmol/L (3.5-5.1) L 11/17/23 19:21 Chloride 97 mmol/L (98-107) L 11/17/23 19:21 Carbon Dioxide 28.0 mmol/L (21.0-32.0) 11/17/23 19:21 Anion Gap 8 (5-15) 11/17/23 19:21 BUN 12 mg/dL (7-18) 11/17/23 19:21 Creatinine 1.71 mg/dL (0.70-1.30) H 11/17/23 19:21 Est GFR (MDRD) Af Amer 58 mL/min (>60) L 11/17/23 19:21 Est GFR (MDRD) Non-Af 48 mL/min (>60) L 11/17/23 19:21 BUN/Creatinine Ratio 7.0 RATIO (10-20) L 11/17/23 19:21 Glucose 321 mg/dL (74-106) H 11/17/23 19:21 Dosing Weight Weight used for dosin.1 kg Estimated Creatinine Clearance Estimated Creatinine Clearance: 80.6 Goal Trough Goal Trough: 10-15 mcg/mL Pharmacy Plan for Drug Dosing Pharmacy Plan for Drug Dosing: Pharmacy Service will continue to monitor and adjust dosing as required. 2000MG LOADING DOSE, 1250 Q12H TROUGH PRIOR TO 4TH DOSE Follow-Up Labs Follow-Up Labs: Trough: Vancomycin Date/Time Labs Ordered Labs to be done on [date and time ordered]: 11/18 @ 1000
[2023-11-17] MEDS: HYDROmorphone 1 MG/ML Syringe IV (23:54)
--- NOTE | 2023-11-18 | NURSING ---
Patient soaked hand for 20 minutes. Patient requested to rewrap own hand and refused Kerlix only wanting gauze and dom wrap.
[2023-11-18 02:17] VITALS: BP 122/71; PULSE 94; RESP 16; TEMP 36.6; O2SAT 96
[2023-11-18] MEDS: oxyCODONE 5 MG Tablet PO ×5 (04:14→21:48)
[2023-11-18] MEDS: Acetaminophen 500 MG Tablet PO ×3 (04:15→21:47)
[2023-11-18 05:26] VITALS: BP 141/83; PULSE 96; RESP 16; TEMP 36.4; O2SAT 97
[2023-11-18] MEDS: Piperacil/Tazobactam 3.375 GM in 0.9% Normal Saline (50mL MB+) 50 ML IV ×3 (05:29→21:42)
[2023-11-18 07:27] LABS: Absolute Lymphocyte Count 2.41 X10^3/uL (0.83-4.51); Absolute Neutrophil Count 7.1 X10^3/uL (2.0-7.7); Basophil# 0.06 X10^3/uL; Basophil% 0.6 % (0-1); Eosinophil# 0.22 X10^3/uL; Hemoglobin 15.5 g/dL (13.0-16.5); Lymphocyte # 2.41 X10^3/ul (0.83-4.51); Lymphocyte % 22.3 % (19-41); Mean Corp Hgb Conc 33.7 g/dL (32-36); Mean Corpuscular Hgb 28.2 pg (27.0-32.0); Mean Corpuscular Volume 83.8 fL (80-94); Mean Platelet Vol. 9.4 fl (6.2-12.0); Monocyte# 0.92 X10^3/uL; Monocyte% 8.5 % (0-10); NRBC Flagged by Analyzer 0 % (0-5); Neutrophil # 7.14 X10^3/uL (2.7-7.7); Neutrophil % 66.1 % (47-70); Platelet Count 220 K/mm3 (150-450); RBC Distribution Width CV 12.7 % (11.6-14.6); RBC Distribution Width SD 38.5 fl (35.1-43.9); Red Blood Count 5.49 M/mm3 (4.6-6.2); White Blood Count 10.8 K/mm3 (4.4-11.0)
[2023-11-18 07:44] LABS: Anion Gap 4 (5-15); BUN 10 mg/dL (7-18); BUN/Creat Ratio 6.5 RATIO (10-20); Calcium,Total 8.1 mg/dL (8.5-10.1); Chloride 105 mmol/L (98-107); Creatinine, Serum 1.53 mg/dL (0.70-1.30); EST Glomerular Filtration Rate 54 mL/min (>60); Est Glom Filt Rate - Afr Amer 65 mL/min (>60); Glucose 243 mg/dL (74-106); Potassium 3.6 mmol/L (3.5-5.1); Sodium Level 135 mmol/L (136-145)
--- NOTE | 2023-11-18 07:58 | RAD_ITS ---
INDICATION: Right Small finger cellulitis -- Right small finger EXAMINATION/TECHNIQUE: X-RAY - RIGHT HAND XR Fingers Min 2 Views 3 VIEWS COMPARISON: October 19, 2023 FINDINGS: SOFT TISSUES: There is diffuse soft tissue swelling. No radiopaque foreign body. BONES/JOINTS: There is a displaced fracture within the distal aspect of the first distal phalanx involving the tuft identified visualized. The bone fragment is displaced slightly more medial than the prior examination. Normal alignment. Preservation of the joint space.. No sclerotic or destructive changes observed. RAD/Finger(s) Min 2 Views IMPRESSION: Persistent fifth distal phalanx fracture with interval increased medial displacement of the bone fragment. Diffuse soft tissue swelling. Electronically Signed: Jaylyn Brown MD at 11:23 EDT ,
[2023-11-18 08:00] VITALS: RESP 18
--- NOTE | 2023-11-18 08:03 | PCM.PN.SRG ---
Subjective Subjective VSS. Reports some pain this morning from the right ring finger, worse since yesterday. No pain in the palm though. Reports redness getting worse. Reports good soaks from nursing staff. Objective Data Objective Data Vital Signs: Vital Signs Temp Pulse Resp BP Pulse Ox O2 Del Method 97.5 F L 96 16 141/83 H 97 Room Air 11/18/23 05:26 11/18/23 05:26 11/18/23 05:26 11/18/23 05:26 11/18/23 05:11/18/23 05:26 Oxygen Delivery Method Room Air Weight: 269 lb 2.951 oz Body Mass Index (BMI) 34.5 Intake & Output: Intake and Output for Last 24 Hours 11/16/23 11/17/23 11/18/23 23:59 23:59 23:59 Intake Total 200 / 200 790 / 790 Balance 200 / 200 790 / 790 Lab / Micro Data 11/18/23 06:35 11/18/23 06:35 Labs: Laboratory Results - last 24 hr 11/17/23 19:21: Sodium 133 L, Potassium 3.3 L, Chloride 97 L, Carbon Dioxide 28.0, Anion Gap 8, BUN 12, Creatinine 1.71 H, Est GFR (MDRD) Af Amer 58 L, Est GFR (MDRD) Non-Af 48 L, BUN/Creatinine Ratio 7.0 L, Glucose 321 H, Calcium 8.7 11/18/23 06:35: WBC 10.8, RBC 5.49, Hgb 15.5, Hct 46.0, MCV 83.8, MCH 28.2, MCHC 33.7, RDW Std Deviation 38.5, RDW Coeff of [place] 12.7, Plt Count 220, MPV 9.4, Immature Gran % (Auto) 0.500, Neut % (Auto) 66.1, Lymph % (Auto) 22.3, [place] % (Auto) 8.5, Eos % (Auto) 2.0, Baso % (Auto) 0.6, Absolute Neuts (auto) 7.1, Absolute Lymphs (auto) 2.41, Nucleated RBC % 0, Sodium 135 L, Potassium 3.6, Chloride 105, Carbon Dioxide 26.0, Anion Gap 4 L, BUN 10, Creatinine 1.53 H, Estim Creat Clear Calc 90.00, Est GFR (MDRD) Af Amer 65, Est GFR (MDRD) Non-Af 54 L, BUN/Creatinine Ratio 6.5 L, Glucose 243 H, Calcium 8.1 L Physical Exam Narrative RIGHT Upper extremity: Right ring finger examined TTP over the volar surface and eponychial fold, which is where the redness is most present. No redness/induration at the palm. No signs of ascending infection. No pain over the A1 laly of the RSF and no pain with flexor tendon excursion. No drainage from scab/opening. Const alert and oriented x3 Eyes EOMs intact bilaterally Lymph Lymphatic: no lymphadenopathy noted Resp normal respiratory effort Cardio regular rate and regular rhythm Assessment & Plan Assessment/Plan (1) Cellulitis of finger of right hand: PLAN: Pain: Continue Tylenol scheduled and Roxicodone 5 mg PO as needed Q4 Cardiovascular: Will hold home ARB/diuretic for now Resp: IS Abdomen: Miralax for constipation : No concerns at this time Endocrine: High sugars (200s and low 300s). Placed on sliding scale and have ordered and A1c FEN: Diabetic Diet, IVF 75 cc LR . Daily BMPs Infectious Disease: F/u cultures, continue broad-spectrum antibiotics (Vanc and Zosyn). F/u Right finger X-ray (to be completed this AM). Elevate right hand above heart and do Dial soap soaks TID. Renal: Daily BMPs. High Cr and gfr 54 I will consult medicine for recommendations for kidney disease, HTN. and DM2. Charges/Coding Visit Charges Inpatient E&M: 22504 Subs Hosp L3
[2023-11-18 08:28] VITALS: BP 120/84; PULSE 77; RESP 18; TEMP 36.5; O2SAT 98
[2023-11-18] MEDS: Enoxaparin 40 MG/0.4 ML Syringe SC (09:45)
--- NOTE | 2023-11-18 10:02 | MRI_ITS ---
STUDY: MRI RIGHT HAND REASON FOR EXAM: Male, 38 years old. r/o OM R 5th digit TECHNIQUE: Standardized fat and water weighted pulse sequences were obtained in all 3 orthogonal planes. COMPARISON: X-ray earlier today FINDINGS: FIRST DIGIT: Normal visualized first metacarpus. Normal metacarpophalangeal joint. Normal interphalangeal joint. Normal proximal, and distal phalanges. Normal flexor and extensor tendons. There is no soft tissue abnormality. SECOND DIGIT: Normal visualized second metacarpus. Normal metacarpophalangeal joint. Normal proximal and distal interphalangeal joints. Normal proximal, middle and distal phalanges. Normal flexor and extensor tendons. There is no soft tissue abnormality. THIRD DIGIT: Normal visualized third metacarpus. Normal metacarpophalangeal joint. Normal proximal and distal interphalangeal joints. Normal proximal, middle and distal phalanges. Normal flexor and extensor tendons. There is no soft tissue abnormality. FOURTH DIGIT: Normal visualized fourth metacarpus. Normal metacarpophalangeal joint. Normal proximal and distal interphalangeal joints. Normal proximal, middle and distal phalanges. Normal flexor and extensor tendons. There is no soft tissue abnormality. FIFTH DIGIT: Normal visualized fifth metacarpus. Normal metacarpophalangeal joint. Normal proximal and distal interphalangeal joints. Normal proximal, middle and distal phalanges. Normal flexor and extensor tendons. There is diffuse skin thickening, edema of the subcutaneous fat, an enhancement of the fifth digit consistent with cellulitis. No loculated fluid collection to suggest abscess. There is marrow edema of the tuft of the fifth distal phalanx consistent with recent fracture. No bone destruction to suggest osteomyelitis.. Normal visualized thenar and hypothenar muscles. Normal lumbricalis and interosseous muscles. There are no solid, cystic or lipomatous masses. MRI/Upper Ext No Joint W/WO Cont IMPRESSION: Cellulitis of the fifth digit but no abscess or osteomyelitis. Electronically Signed: Deny Duenas MD at 20:44 EDT ,
[2023-11-18] MEDS: Lisinopril 20 MG Tablet PO (10:42)
[2023-11-18] MEDS: Vancomycin HCl 1,250 MG in 0.9% Normal Saline (250mL Bag) 250 ML 167 MG IV ×2 (10:42→21:47)
[2023-11-18] MEDS: Lactated Ringers 1,000 ML 75 ML IV (10:46)
[2023-11-18] MEDS: Insulin Lispro 100 UNIT/ML INSULN.PEN SC ×2 (13:23→21:40)
[2023-11-18 13:32] LABS: Bedside Glucose 278 mg/dL (74-106)
--- NOTE | 2023-11-18 15:26 | PCM.PN.HOSP ---
Reason for Visit Reason for Visit: Right fifth digit injury Subjective Subjective Mr. Ross is a 38-year-old male with a complex past medical history who had an initial injury to his fifth digit on his right hand on 10/19/2023 and had been undergoing care for this by plastic surgery with Dr. Calix. On 10/19/2023 he was taken the OR at which time he was diagnosed with an open fracture of the tuft of the distal phalanx of his fifth digit. An irrigation and washout of the open fracture with a finger nailbed laceration repair finger volar laceration repair was performed and the patient was discharged home with ongoing outpatient follow-up. At his most recent follow-up with plastic surgery his finger had become hot, erythematous, and swollen. 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 He had no trauma to the area. He reported sharp severe pain in the area that was worse with movement and improved with rest and elevation. He does use nicotine at baseline in the form of chewing tobacco. He was admitted by plastic surgery for IV antibiotics and ongoing care and we have been consulted for medical management. 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 Patient states he had blood sugar elevations when he was in the hospital on Decadron. We did discuss that it is not uncommon. He checked his blood sugar a few weeks ago he said in the morning it was 93. He may just have some acute elevations related to his infection however we will know more once his A1c results. Objective Data Objective Data Vital Signs: Vital Signs Temp Pulse Resp BP Pulse Ox O2 Del Method 97.7 F L 77 18 120/84 H 98 Room Air 11/18/23 08:28 11/18/23 08:28 11/18/23 08:11/18/23 08:11/18/23 08:11/18/23 14:00 Oxygen Delivery Method Room Air Weight: 122.1 kg Body Mass Index (BMI) 34.5 Intake & Output: Intake and Output for Last 24 Hours 11/16/23 11/17/23 11/18/23 23:59 23:59 23:59 Intake Total 200 / 200 2865 / 2865 Balance 200 / 200 2865 / 2865 Lab / Micro Data 11/18/23 06:35 11/18/23 06:35 Labs: Laboratory Results - last 24 hr 11/17/23 19:21: Sodium 133 L, Potassium 3.3 L, Chloride 97 L, Carbon Dioxide 28.0, Anion Gap 8, BUN 12, Creatinine 1.71 H, Est GFR (MDRD) Af Amer 58 L, Est GFR (MDRD) Non-Af 48 L, BUN/Creatinine Ratio 7.0 L, Glucose 321 H, Calcium 8.7 11/18/23 06:35: WBC 10.8, RBC 5.49, Hgb 15.5, Hct 46.0, MCV 83.8, MCH 28.2, MCHC 33.7, RDW Std Deviation 38.5, RDW Coeff of [place] 12.7, Plt Count 220, MPV 9.4, Immature Gran % (Auto) 0.500, Neut % (Auto) 66.1, Lymph % (Auto) 22.3, [place] % (Auto) 8.5, Eos % (Auto) 2.0, Baso % (Auto) 0.6, Absolute Neuts (auto) 7.1, Absolute Lymphs (auto) 2.41, Nucleated RBC % 0, Sodium 135 L, Potassium 3.6, Chloride 105, Carbon Dioxide 26.0, Anion Gap 4 L, BUN 10, Creatinine 1.53 H, Estim Creat Clear Calc 90.00, Est GFR (MDRD) Af Amer 65, Est GFR (MDRD) Non-Af 54 L, BUN/Creatinine Ratio 6.5 L, Glucose 243 H, Calcium 8.1 L 11/18/23 13:13: POC Glucose 278 H Micro: Microbiology 11/17/23 17:05 Wound - Finger Gram Stain - Final 11/17/23 17:05 Wound - Finger Wound Culture - Preliminary Staphylococcus aureus Radiography Diagnostic Testing: Radiology Impression Finger X-Ray 11/18/23 07:58 IMPRESSION: Persistent fifth distal phalanx fracture with interval increased medial displacement of the bone fragment. Diffuse soft tissue swelling. Electronically Signed: Jaylyn Brown MD at 11:23 EDT , Physical Exam Const alert, oriented x3, no apparent distress, healthy appearing and well nourished Constitutional Narrative: Obese, middle-aged, white male, lying in bed looking on his cell phone, appears comfortable at this time, does not appear toxic HEENT head/scalp atraumatic and moist oral mucous membranes HEENT Narrative: Mallampati 3-4, no thrush Head and Scalp: normocephalic Eyes PERRL and EOMs intact bilaterally Eyes Narrative: No scleral icterus Neck no lymphadenopathy and supple Neck Narrative: Neck is short and thick, trachea is midline Resp normal respiratory effort, no retractions, no use of accessory muscles and clear to auscultation bilaterally Auscultation: Negative for rales, rhonchi or wheezes Cardio regular rate, regular rhythm, S1 normal heart sound, S2 normal heart sound, no murmurs, no rub, no gallops and no clicks GI normal to inspection, nondistended, normoactive bowel sounds, soft to palpation and non-tender Extremity no clubbing, cyanosis or edema Extremity Narrative: Right hand elevated with dressing in place Skin skin turgor normal, no jaundice, no petechiae and no mottling Skin Narrative: Images of right fifth digit reviewed Neuro oriented x3, moves all extremities and no focal motor deficits Speech: speech normal Psych affect normal Psych Narrative: Eye contact is good and patient interacts appropriately Assessment & Plan Assessment/Plan (1) Cellulitis of finger of right hand: (2) Hyperglycemia: PLAN: Plan Right fifth digit cellulitis -Continue vancomycin and Zosyn -Cultures as ordered by plastic surgery -Obtain MRI to rule out any signs of osteomyelitis -Will continue IV fluids per primary service but if no plans for surgery and patient is eating well would recommend discontinuing -Predominant management by primary service Hyperglycemia with no previous history of diabetes -Hemoglobin A1c has been ordered however machine is currently down so results are pending -Blood sugars are elevated enough that I highly suspect he is going to qualify for diagnosis of diabetes -Start Lantus 20 units at at bedtime -Continue SSI as ordered but increase to high moderate dose -Accu-Cheks as ordered -Transition to carb controlled diet -Consult dietitian for instruction in diet with regards to diabetic diet -Will need to teach patient how to use insulin if needed CKD stage IIIa -Baseline serum creatinine appears to run between 1.5 and 1.7 for some time now -Currently 1.53 -No need to hold lisinopril -Would recommend outpatient follow-up with nephrology for ongoing monitoring given age -Last normal creatinine per our records was from 2016 Essential hypertension -Continue home lisinopril -Monitor blood pressure -Goal blood pressure with diabetes should be less than 130/80 and ideally between less than 120 systolic History of arachnoid cyst -Status post SAMPLE TAKER O[employer] shunt -Continue outpatient follow-up with neurology/neurosurgeon as previously recommended History of eczema/allergic rhinitis -Hold dupilumab Hypogonadism -Continue home anastrozole and testosterone BETSY -Patient admits to history of BETSY but is not compliant with CPAP/BiPAP Obesity -BMI is 34.6 -Recommend weight loss -Complicates treatment, prognosis, outcomes Nicotine abuse -Patient chews tobacco -Nicotine patch made available -Recommend cessation DVT prophylaxis -Per primary service Charges/Coding Visit Charges Inpatient E&M: 66239 Subs Hosp L3
--- NOTE | 2023-11-18 16:25 | CASEMGMT ---
RN?CM?AGRICULTURE RESEARCH DIRECTOR?CM?to room to meet with patient for initial transition planning/care coordination?assessment.?RN?CM?introduced self and role at [facility].? Pt voices understanding and consents to?assessment?at this time.? Pt resting in bed in no distress at this time.? Pt is A/O at this time and answers all questions appropriately.?? Care providers, pharmacy, and demographics verified/updated at this time. 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 Living Will/HPOA:?Pt does not currently have LW/HCPOA. LNOK: , Ledy Living Arrangements: Lives w/his and 4 children. Independent. Transportation:?Pt and both drive. DME: ?Has a PAP, but has not been using d/t states it has not been working properly. Pt states he is f/u about this already. Has a glucometer that he got about 9 yrs ago and he states he does not think that it is working properly, either. He is interested in getting a new one. Made aware a script can be provided for this and also made aware of OTC options, if he prefers not to get one through his insurance. He states he will take a script for it. Script prepared and placed on pt's chart w/instructions for staff to have MD sign @ dc and script to be given to pt. HHC/SNF: No hx of SNF. Pt states he has done OP therapy in the past. Also states he has had PICC lines and has had HHC for IV atb's @ home in the past. If IV atb's are needed @ dc, he denies having preference of infusion co and denies preference of HHC. Made aware of [facility] and he states he'll use them. He states he was also taught to do his own PICC dressing changes in the past. Pt states he is also comfortable/willing to do his own dressing changes to wound. Pt wishes to return home and states has no concerns with going home at time of discharge.? CM?to follow for any further discharge planning/needs.? Pt voices no further concerns/needs at this time.? Advised pt to ask for?CM?if any further questions/concerns/needs arise.? Voices understanding. PLAN:??Home. Follow for possible IV atb's. Pt to be given script for glucometer @ [facility]. Jayna BSN?RN?CM
[2023-11-18 17:51] LABS: Bedside Glucose 135 mg/dL (74-106)
[2023-11-18 21:21] VITALS: BP 139/89; PULSE 82; RESP 18; TEMP 36.7; O2SAT 100
[2023-11-18 22:47] LABS: Bedside Glucose 248 mg/dL (74-106)
[2023-11-19 02:12] VITALS: BP 120/82; PULSE 74; RESP 18; TEMP 36.4; O2SAT 100
[2023-11-19] MEDS: oxyCODONE 5 MG Tablet PO ×4 (02:15→21:56)
[2023-11-19] MEDS: Lactated Ringers 1,000 ML 75 ML IV ×2 (02:16→21:45)
--- NOTE | 2023-11-19 06:31 | PCM.PN.SRG ---
Subjective Subjective Reports improvement in pain. Discussed results of the MRI ordered by the medicine team (no abscess or osteomyelitis, but left small finger cellulitis). Patient understands plan to remain in the hospital until cultures finalize and cellulitis improves. Reports some oral thrush and some perineal thrush 2/2 the antibiotics. Objective Data Objective Data Vital Signs: Vital Signs Temp Pulse Resp BP Pulse Ox O2 Del Method 97.6 F L 74 18 120/82 H 100 Room Air 11/19/23 02:12 11/19/23 02:12 11/19/23 02:12 11/19/23 02:12 11/19/23 02:12 11/19/23 03:00 Oxygen Delivery Method Room Air Weight: 269 lb 2.951 oz Body Mass Index (BMI) 34.5 Intake & Output: Intake and Output for Last 24 Hours 11/17/23 11/18/23 11/19/23 23:59 23:59 23:59 Intake Total 200 / 200 3365 / 3365 2325 / 2325 Balance 200 / 200 3365 / 3365 2325 / 2325 Lab / Micro Data 11/19/23 06:30 11/18/23 06:35 Labs: Laboratory Results - last 24 hr 11/18/23 06:35: WBC 10.8, RBC 5.49, Hgb 15.5, Hct 46.0, MCV 83.8, MCH 28.2, MCHC 33.7, RDW Std Deviation 38.5, RDW Coeff of Sharon 12.7, Plt Count 220, MPV 9.4, Immature Gran % (Auto) 0.500, Neut % (Auto) 66.1, Lymph % (Auto) 22.3, [place] % (Auto) 8.5, Eos % (Auto) 2.0, Baso % (Auto) 0.6, Absolute Neuts (auto) 7.1, Absolute Lymphs (auto) 2.41, Nucleated RBC % 0, Sodium 135 L, Potassium 3.6, Chloride 105, Carbon Dioxide 26.0, Anion Gap 4 L, BUN 10, Creatinine 1.53 H, Estim Creat Clear Calc 90.00, Est GFR (MDRD) Af Amer 65, Est GFR (MDRD) Non-Af 54 L, BUN/Creatinine Ratio 6.5 L, Glucose 243 H, Calcium 8.1 L 11/18/23 13:13: POC Glucose 278 H 11/18/23 16:41: POC Glucose 135 H 11/18/23 21:35: POC Glucose 248 H Micro: Microbiology 11/17/23 17:05 Wound - Finger Gram Stain - Final 11/17/23 17:05 Wound - Finger Wound Culture - Preliminary Staphylococcus aureus Radiography Diagnostic Testing: Radiology Impression Finger X-Ray 11/18/23 07:58 IMPRESSION: Persistent fifth distal phalanx fracture with interval increased medial displacement of the bone fragment. Diffuse soft tissue swelling. Electronically Signed: Jaylyn Brown MD at 11:23 EDT , Upper Extremity MRI 11/18/23 10:02 IMPRESSION: Cellulitis of the fifth digit but no abscess or osteomyelitis. Electronically Signed: Deny Duenas MD at 20:44 EDT , Physical Exam Narrative RIGHT Upper extremity: Right ring finger examined TTP over the volar surface and eponychial fold, which is where the redness is most present. No redness/induration at the palm. No signs of ascending infection. No pain over the A1 laly of the RSF and no pain with flexor tendon excursion. No drainage from scab/opening. Const alert and oriented x3 Eyes EOMs intact bilaterally Lymph Lymphatic: no lymphadenopathy noted Resp normal respiratory effort Cardio regular rate and regular rhythm Assessment & Plan Assessment/Plan (1) Cellulitis of finger of right hand: PLAN: Pain: Continue Tylenol scheduled and Roxicodone 5 mg PO as needed Q4 Cardiovascular: Restarted Lisinopril per medicine consult. Resp: IS Abdomen: Miralax for constipation : No concerns at this time Endocrine: High sugars (200s and low 300s). Placed on sliding scale and have ordered and A1c (pending). Medicine consultation started patient on Glargine as well. Nutrition consult. Also restarting home testosterone per medicine consult. FEN: Diabetic Diet, IVF 75 cc LR . Daily BMPs (F/u labs from today) Infectious Disease: Staphylococcus on preliminary cultures, continue broad-spectrum antibiotics (Vanc and Zosyn) for now until speciates (around farm animals so will keep Zosyn through the day until more time for cultures to grow). Right small finger x-ray reviewed, no change, no signs of cortical erosions/osteo. Medicine ordered MRI - no signs of osteomyelitis. Elevate right hand above heart and do Dial soap soaks TID. Also will discuss the thrush with medicine team (appropriateness of Diflucan v another agent in setting of kidney disease, ect.) Renal: Daily BMPs (F/u - results pending) Appreciate consultation services from Internal Medicine, Dr. Blankenship. Charges/Coding Procedures Integumentary [id number]: [id number] Global Visit
[2023-11-19] MEDS: Insulin Lispro 100 UNIT/ML INSULN.PEN SC ×3 (06:44→21:44)
[2023-11-19] MEDS: Piperacil/Tazobactam 3.375 GM in 0.9% Normal Saline (50mL MB+) 50 ML IV (06:44)
[2023-11-19] MEDS: Acetaminophen 500 MG Tablet PO (06:45)
[2023-11-19 07:05] LABS: Bedside Glucose 192 mg/dL (74-106)
[2023-11-19 07:38] LABS: Absolute Lymphocyte Count 1.93 X10^3/uL (0.83-4.51); Absolute Neutrophil Count 5.5 X10^3/uL (2.0-7.7); Basophil# 0.06 X10^3/uL; Basophil% 0.7 % (0-1); Eosinophils% 2.4 % (0-5); Hematocrit 45.3 % (40-54); Lymphocyte # 1.93 X10^3/ul (0.83-4.51); Lymphocyte % 22.9 % (19-41); Mean Corp Hgb Conc 33.1 g/dL (32-36); Mean Corpuscular Hgb 28.2 pg (27.0-32.0); Mean Corpuscular Volume 85.2 fL (80-94); Mean Platelet Vol. 9.4 fl (6.2-12.0); Monocyte# 0.68 X10^3/uL; Monocyte% 8.1 % (0-10); NRBC Flagged by Analyzer 0 % (0-5); Neutrophil # 5.52 X10^3/uL (2.7-7.7); Neutrophil % 65.3 % (47-70); Platelet Count 217 K/mm3 (150-450); RBC Distribution Width CV 12.9 % (11.6-14.6); RBC Distribution Width SD 39.7 fl (35.1-43.9); Red Blood Count 5.32 M/mm3 (4.6-6.2); White Blood Count 8.4 K/mm3 (4.4-11.0)
[2023-11-19 08:00] VITALS: BP 145/94; PULSE 80; RESP 16; TEMP 36.6; O2SAT 99
[2023-11-19 08:13] LABS: Phosphorus 2.6 mg/dL (2.5-4.9)
[2023-11-19 08:14] LABS: ALB/GLOB Ratio 1.1 RATIO (0.9-2.4); AST(SGOT) 7 U/L (15-37); Alanine Aminotransfer ALT/SGPT 11 U/L (16-61); Albumin, Serum 3.2 g/dL (3.2-5.0); Alkaline Phosphatase 66 U/L (45-117); Anion Gap 3 (5-15); BUN 7 mg/dL (7-18); BUN/Creat Ratio 4.9 RATIO (10-20); Calcium,Total 8.4 mg/dL (8.5-10.1); Chloride 104 mmol/L (98-107); Creatinine, Serum 1.43 mg/dL (0.70-1.30); EST Glomerular Filtration Rate 59 mL/min (>60); Est Glom Filt Rate - Afr Amer 71 mL/min (>60); Estimated Creatinine Clearance 96.29 ml/min; Globulin 2.9 g/dL (2.2-4.2); Glucose 203 mg/dL (74-106); Magnesium 2.1 mg/dL (1.6-2.6); Potassium 3.9 mmol/L (3.5-5.1); Protein, Total 6.1 g/dL (6.4-8.2); Sodium Level 136 mmol/L (136-145)
[2023-11-19] MEDS: Fluconazole 100 MG Tablet 200 MG PO (09:23)
[2023-11-19] MEDS: Insulin Glargine-YFGN 100 UNIT/ML Pen 20 UNIT SC (09:24)
[2023-11-19] MEDS: Enoxaparin 40 MG/0.4 ML Syringe SC (09:25)
[2023-11-19] MEDS: Lisinopril 20 MG Tablet PO (09:26)
[2023-11-19] MEDS: Ciprofloxacin 400 MG/200 ML BAG 200 MG IV ×2 (09:57→21:45)
[2023-11-19] MEDS: Vancomycin Trough/Random Due 1 LAB MC ×2 (10:01→11:06)
[2023-11-19 11:02] LABS: Vancomycin, Trough Level 8.1 ug/mL (5.0-15.0)
--- NOTE | 2023-11-19 11:16 | PCM.RX.CS ---
Consult Antibiotic Management Pharmacy has been consulted to manage selected antibiotic: Vancomycin Type of Intervention Type of Consult: Follow-up Prior Doses of Antibiotics Prior Doses of Antibiotics Received/Current Regimen: current dose is vanc 1250mg IV q12h Labs Labs: Sodium 136 mmol/L (136-145) 11/19/23 06:30 Potassium 3.9 mmol/L (3.5-5.1) 11/19/23 06:30 Chloride 104 mmol/L (98-107) 11/19/23 06:30 Carbon Dioxide 29.0 mmol/L (21.0-32.0) 11/19/23 06:30 Anion Gap 3 (5-15) L 11/19/23 06:30 BUN 7 mg/dL (7-18) 11/19/23 06:30 Creatinine 1.43 mg/dL (0.70-1.30) H 11/19/23 06:30 Est GFR (MDRD) Af Amer 71 mL/min (>60) 11/19/23 06:30 Est GFR (MDRD) Non-Af 59 mL/min (>60) L 11/19/23 06:30 BUN/Creatinine Ratio 4.9 RATIO (10-20) L 11/19/23 06:30 Glucose 203 mg/dL (74-106) H 11/19/23 06:30 Vancomycin Trough 8.1 ug/mL (5.0-15.0) 11/19/23 10:05 Microbiology Microbiology: Microbiology 11/17/23 17:05 Wound - Finger Gram Stain - Final 11/17/23 17:05 Wound - Finger Wound Culture - Final Staphylococcus aureus Dosing Weight Weight used for dosin lb 15.423 oz Estimated Creatinine Clearance Estimated Creatinine Clearance: 96 ml/min Goal Trough Goal Trough: 10-15 mcg/mL Pharmacy Plan for Drug Dosing Pharmacy Plan for Drug Dosing: The vanc trough drawn at 10:05 today was 8.1. This is below goal so will increase dose to 1500mg q12h. Repeat a trough before the 4th dose. Pharmacy Service will continue to monitor and adjust dosing as required. Follow-Up Labs Follow-Up Labs: Trough: Vancomycin Date/Time Labs Ordered Labs to be done on [date and time ordered]: 11/20/23 23:30
[2023-11-19] MEDS: Vancomycin HCl 1,500 MG in 0.9% Normal Saline (500mL Bag) 500 ML 250 MG IV (11:56)
--- NOTE | 2023-11-19 13:10 | PN.HOSP_ITS ---
Reason for Visit Reason for Visit: Right hand cellulitis Subjective Subjective Patient states the pain is about the same today. [place] it looked a little bit better today when Dr. Calix evaluated this morning. We did discuss that his A1c is not yet back because the machine is down and we would have more information with regards to his blood sugars once we have this result. We did again discuss his need for some supplemental insulin at this time due to his markedly elevated blood sugars. A.m. fasting was 200. Objective Data Objective Data Vital Signs: Vital Signs Temp Pulse Resp BP Pulse Ox O2 Del Method 97.9 F 80 16 145/94 H 99 Room Air 11/19/23 08:00 11/19/23 08:00 11/19/23 08:00 11/19/23 08:00 11/19/23 08:00 11/19/23 09:00 Oxygen Delivery Method Room Air Weight: 122.1 kg Body Mass Index (BMI) 34.5 Intake & Output: Intake and Output for Last 24 Hours 11/17/23 11/18/23 11/19/23 23:59 23:59 23:59 Intake Total 200 / 200 3365 / 3365 2325 / 2325 Balance 200 / 200 3365 / 3365 2325 / 2325 Lab / Micro Data 11/19/23 06:30 11/19/23 06:30 Labs: Laboratory Results - last 24 hr 11/18/23 13:13: POC Glucose 278 H 11/18/23 16:41: POC Glucose 135 H 11/18/23 21:35: POC Glucose 248 H 11/19/23 06:30: WBC 8.4, RBC 5.32, Hgb 15.0, Hct 45.3, MCV 85.2, MCH 28.2, MCHC 33.1, RDW Std Deviation 39.7, RDW Coeff of Sharon 12.9, Plt Count 217, MPV 9.4, Immature Gran % (Auto) 0.600, Neut % (Auto) 65.3, Lymph % (Auto) 22.9, [place] % (Auto) 8.1, Eos % (Auto) 2.4, Baso % (Auto) 0.7, Absolute Neuts (auto) 5.5, Absolute Lymphs (auto) 1.93, Nucleated RBC % 0, Sodium 136, Potassium 3.9, Chloride 104, Carbon Dioxide 29.0, Anion Gap 3 L, BUN 7, Creatinine 1.43 H, Estim Creat Clear Calc 96.29, Est GFR (MDRD) Af Amer 71, Est GFR (MDRD) Non-Af 59 L, BUN/Creatinine Ratio 4.9 L, Glucose 203 H, Calcium 8.4 L, Phosphorus 2.6, Magnesium 2.1, Total Bilirubin 0.60, AST 7 L, ALT 11 L, Alkaline Phosphatase 66, Total Protein 6.1 L, Albumin 3.2, Globulin 2.9, Albumin/Globulin Ratio 1.1 11/19/23 06:43: POC Glucose 192 H 11/19/23 10:05: Vancomycin Trough 8.1 Micro: Microbiology 11/17/23 17:05 Wound - Finger Gram Stain - Final 11/17/23 17:05 Wound - Finger Wound Culture - Final Staphylococcus aureus Radiography Diagnostic Testing: Radiology Impression Upper Extremity MRI 11/18/23 10:02 IMPRESSION: Cellulitis of the fifth digit but no abscess or osteomyelitis. 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, appears comfortable at this time, does not appear toxic HEENT head/scalp atraumatic and moist oral mucous membranes Head and Scalp: normocephalic Resp normal respiratory effort, no retractions, no use of accessory muscles and clear to auscultation bilaterally Auscultation: Negative for rales, rhonchi or wheezes Cardio regular rate, regular rhythm, S1 normal heart sound, S2 normal heart sound, no murmurs, no rub, no gallops and no clicks GI normal to inspection, nondistended, normoactive bowel sounds, soft to palpation and non-tender Extremity no clubbing, cyanosis or edema Extremity Narrative: Right hand elevated with dressing in place Neuro oriented x3 and moves all extremities Speech: speech normal Psych affect normal Psych Narrative: Eye contact is good and patient interacts appropriately Assessment & Plan Assessment/Plan (1) Cellulitis of finger of right hand: (2) Hyperglycemia: PLAN: Plan Right fifth digit cellulitis -Continue vancomycin but transition Zosyn to Cipro 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 and swelling with no significant improvement -Preliminary cultures thus far only showing MRSA -MRI does not show any signs of osteomyelitis -Will continue IV fluids per primary service but if no plans for surgery and patient is eating well would recommend discontinuing -Predominant management by primary service Hyperglycemia with no previous history of diabetes -Hemoglobin A1c has been ordered however machine is currently down so results remain pending -Blood sugars are elevated enough that I highly suspect he is going to qualify for diagnosis of diabetes -Continue Lantus 20 daily as fasting blood sugar this morning was about 200 -Continue SSI as ordered but increase to high moderate dose -Accu-Cheks as ordered -Transition to carb controlled diet -Consult dietitian for instruction in diet with regards to diabetic diet -Will need to teach patient how to use insulin if needed CKD stage IIIa -Baseline serum creatinine appears to run between 1.5 and 1.7 for some time now -Currently 1.43 -Would recommend outpatient follow-up with nephrology for ongoing monitoring given age -Last normal creatinine per our records was from 2016 Essential hypertension -Continue home lisinopril -Monitor blood pressure -Goal blood pressure with diabetes should be less than 130/80 and ideally between less than 120 systolic -Blood pressures for the most part appear to be close to the goal range but we will continue to monitor History of arachnoid cyst -Status post [employer] shunt -Continue outpatient follow-up with neurology/neurosurgeon as previously recommended History of eczema/allergic rhinitis -Hold dupilumab Hypogonadism -Patient plans on restarting his home anastrozole and testosterone at discharge BETSY -Patient admits to history of BETSY but is not compliant with CPAP/BiPAP Obesity -BMI is 34.6 -Recommend weight loss -Complicates treatment, prognosis, outcomes Nicotine abuse -Patient chews tobacco -Nicotine patch made available -Recommend cessation DVT prophylaxis -Per primary service Charges/Coding Visit Charges Inpatient E&M: 73149 Subs Hosp L2
--- NOTE | 2023-11-19 13:10 | PN.HOSP_ITS ---
Reason for Visit Reason for Visit: Diagnoses Cellulitis of right finger (11/17/23) Pain in right hand (11/17/23) Hyperglycemia, unspecified (11/17/23) Displaced fracture of distal phalanx of unspecified finger, initial encounter for open fracture (11/17/23) Objective Data Objective Data Vital Signs: Vital Signs Temp Pulse Resp BP Pulse Ox O2 Del Method 97.9 F 80 16 145/94 H 99 Room Air 11/19/23 08:00 11/19/23 08:00 11/19/23 08:00 11/19/23 08:00 11/19/23 08:00 11/19/23 09:00 Oxygen Delivery Method Room Air Weight: 122.1 kg Body Mass Index (BMI) 34.5 Intake & Output: Intake and Output for Last 24 Hours 11/17/23 11/18/23 11/19/23 23:59 23:59 23:59 Intake Total 200 / 200 3365 / 3365 2325 / 2325 Balance 200 / 200 3365 / 3365 2325 / 2325 Lab / Micro Data 11/19/23 06:30 11/19/23 06:30 Labs: Laboratory Results - last 24 hr 11/18/23 13:13: POC Glucose 278 H 11/18/23 16:41: POC Glucose 135 H 11/18/23 21:35: POC Glucose 248 H 11/19/23 06:30: WBC 8.4, RBC 5.32, Hgb 15.0, Hct 45.3, MCV 85.2, MCH 28.2, MCHC 33.1, RDW Std Deviation 39.7, RDW Coeff of Sharon 12.9, Plt Count 217, MPV 9.4, Immature Gran % (Auto) 0.600, Neut % (Auto) 65.3, Lymph % (Auto) 22.9, [place] % (Auto) 8.1, Eos % (Auto) 2.4, Baso % (Auto) 0.7, Absolute Neuts (auto) 5.5, Absolute Lymphs (auto) 1.93, Nucleated RBC % 0, Sodium 136, Potassium 3.9, Chloride 104, Carbon Dioxide 29.0, Anion Gap 3 L, BUN 7, Creatinine 1.43 H, Estim Creat Clear Calc 96.29, Est GFR (MDRD) Af Amer 71, Est GFR (MDRD) Non-Af 59 L, BUN/Creatinine Ratio 4.9 L, Glucose 203 H, Calcium 8.4 L, Phosphorus 2.6, Magnesium 2.1, Total Bilirubin 0.60, AST 7 L, ALT 11 L, Alkaline Phosphatase 66, Total Protein 6.1 L, Albumin 3.2, Globulin 2.9, Albumin/Globulin Ratio 1.1 11/19/23 06:43: POC Glucose 192 H 11/19/23 10:05: Vancomycin Trough 8.1 Micro: Microbiology 11/17/23 17:05 Wound - Finger Gram Stain - Final 11/17/23 17:05 Wound - Finger Wound Culture - Final Staphylococcus aureus Radiography Diagnostic Testing: Radiology Impression Upper Extremity MRI 11/18/23 10:02 IMPRESSION: Cellulitis of the fifth digit but no abscess or osteomyelitis. Electronically Signed: Deny Duenas MD at 20:44 EDT , Charges/Coding Visit Charges Inpatient E&M: 59877 Subs Hosp L2
[2023-11-19 14:00] VITALS: BP 135/79; PULSE 79; RESP 16; TEMP 36.6; O2SAT 96
[2023-11-19] MEDS: 0.9% Saline Lock 10 ML Syringe IV (14:04)
[2023-11-19 17:11] LABS: Bedside Glucose 159 mg/dL (74-106)
[2023-11-19 17:56] LABS: Bedside Glucose 141 mg/dL (74-106)
[2023-11-19 21:31] VITALS: BP 158/88; PULSE 96; RESP 16; TEMP 36.9; O2SAT 98
[2023-11-19 22:48] LABS: Bedside Glucose 162 mg/dL (74-106)
[2023-11-20] MEDS: Vancomycin HCl 1,500 MG in 0.9% Normal Saline (500mL Bag) 500 ML 250 MG IV ×2 (00:11→12:03)
[2023-11-20] MEDS: oxyCODONE 5 MG Tablet PO ×3 (04:53→22:26)
[2023-11-20 04:58] VITALS: BP 139/93; PULSE 77; RESP 18; TEMP 36.6; O2SAT 97
--- NOTE | 2023-11-20 06:42 | PN.SURG_ITS ---
Subjective Subjective Reports that he's feeling better today. Compliant with soaks. Objective Data Objective Data Vital Signs: Vital Signs Temp Pulse Resp BP Pulse Ox O2 Del Method 98 F 77 18 139/93 H 97 Room Air 11/20/23 04:58 11/20/23 04:58 11/20/23 04:58 11/20/23 04:58 11/20/23 04:58 11/20/23 04:58 Oxygen Delivery Method Room Air Weight: 269 lb 2.951 oz Body Mass Index (BMI) 34.5 Intake & Output: Intake and Output for Last 24 Hours 11/18/23 11/19/23 11/20/23 23:59 23:59 23:59 Intake Total 3365 / 3365 4625 / 4625 2029 Balance 3365 / 3365 4625 / 4625 2029 Lab / Micro Data 11/19/23 06:30 11/19/23 06:30 Labs: Laboratory Results - last 24 hr 11/19/23 06:30: WBC 8.4, RBC 5.32, Hgb 15.0, Hct 45.3, MCV 85.2, MCH 28.2, MCHC 33.1, RDW Std Deviation 39.7, RDW Coeff of Sharon 12.9, Plt Count 217, MPV 9.4, Immature Gran % (Auto) 0.600, Neut % (Auto) 65.3, Lymph % (Auto) 22.9, [place] % (Auto) 8.1, Eos % (Auto) 2.4, Baso % (Auto) 0.7, Absolute Neuts (auto) 5.5, Absolute Lymphs (auto) 1.93, Nucleated RBC % 0, Sodium 136, Potassium 3.9, Chloride 104, Carbon Dioxide 29.0, Anion Gap 3 L, BUN 7, Creatinine 1.43 H, Estim Creat Clear Calc 96.29, Est GFR (MDRD) Af Amer 71, Est GFR (MDRD) Non-Af 59 L, BUN/Creatinine Ratio 4.9 L, Glucose 203 H, Calcium 8.4 L, Phosphorus 2.6, Magnesium 2.1, Total Bilirubin 0.60, AST 7 L, ALT 11 L, Alkaline Phosphatase 66, Total Protein 6.1 L, Albumin 3.2, Globulin 2.9, Albumin/Globulin Ratio 1.1 11/19/23 06:43: POC Glucose 192 H 11/19/23 10:05: Vancomycin Trough 8.1 11/19/23 12:34: POC Glucose 159 H 11/19/23 17:35: POC Glucose 141 H 11/19/23 21:43: POC Glucose 162 H Micro: Microbiology 11/17/23 17:05 Wound - Finger Gram Stain - Final 11/17/23 17:05 Wound - Finger Wound Culture - Final Staphylococcus aureus Physical Exam Narrative RIGHT Upper extremity: Right ring finger examined TTP over the volar surface and eponychial fold, which is where the redness is most present. No redness/induration at the palm. No signs of ascending infection. No pain over the A1 laly of the RSF and no pain with flexor tendon excursion. No drainage from scab/opening. Const alert and oriented x3 Eyes EOMs intact bilaterally Lymph Lymphatic: no lymphadenopathy noted Resp normal respiratory effort Cardio regular rate and regular rhythm Assessment & Plan Assessment/Plan (1) Cellulitis of finger of right hand: PLAN: Pain: Continue Tylenol scheduled and Roxicodone 5 mg PO as needed Q4 Cardiovascular: Restarted Lisinopril per medicine consult. Resp: IS Abdomen: Miralax for constipation : No concerns at this time Endocrine: High sugars (200s and low 300s). Placed on sliding scale. Medicine consultation started patient on Glargine as well. Nutrition consult. Also restarting home testosterone per medicine consult. A1c still pending (machine in the lab is being fixed). FEN: Diabetic Diet, IVF 75 cc LR . Daily BMPs (F/u labs from today) Infectious Disease: Staphylococcus on preliminary cultures, continue broad- spectrum antibiotics (Vanc) and cipro to cover Anthrex per medicine (around farm animals). Right small finger x-ray reviewed, no change, no signs of cortical erosions/osteo. Medicine ordered MRI - no signs of osteomyelitis. Elevate right hand above heart and do Dial soap soaks TID. Also will discuss the thrush with medicine team (Fluconazole dose completed) Renal: Daily BMPs (F/u - results pending) Appreciate consultation services from Internal Medicine, Dr. Blankenship. Charges/Coding Visit Charges Inpatient E&M: 88775 Init Hosp L2
[2023-11-20 06:56] LABS: Anion Gap 6 (5-15); BUN 9 mg/dL (7-18); BUN/Creat Ratio 6.2 RATIO (10-20); Calcium,Total 8.6 mg/dL (8.5-10.1); Chloride 104 mmol/L (98-107); Creatinine, Serum 1.46 mg/dL (0.70-1.30); EST Glomerular Filtration Rate 57 mL/min (>60); Est Glom Filt Rate - Afr Amer 69 mL/min (>60); Estimated Creatinine Clearance 94.31 ml/min; Glucose 134 mg/dL (74-106); Potassium 3.7 mmol/L (3.5-5.1); Sodium Level 138 mmol/L (136-145)
[2023-11-20 07:02] LABS: Bedside Glucose 145 mg/dL (74-106)
[2023-11-20 08:18] LABS: Hemoglobin A1c 7.9 % (3.8-5.6)
[2023-11-20 09:24] VITALS: BP 140/93; PULSE 77; RESP 18; TEMP 36.6; O2SAT 96
[2023-11-20] MEDS: Enoxaparin 40 MG/0.4 ML Syringe SC (09:30)
[2023-11-20] MEDS: Lisinopril 20 MG Tablet PO (09:31)
[2023-11-20] MEDS: Ciprofloxacin 400 MG/200 ML BAG 200 MG IV (09:31)
[2023-11-20] MEDS: Insulin Glargine-YFGN 100 UNIT/ML Pen 20 UNIT SC (09:47)
[2023-11-20 10:13] LABS: Bedside Glucose 154 mg/dL (74-106)
[2023-11-20] MEDS: Insulin Lispro 100 UNIT/ML INSULN.PEN SC (11:40)
[2023-11-20 12:09] LABS: Bedside Glucose 202 mg/dL (74-106)
--- NOTE | 2023-11-20 14:29 | PCM.CONS.GEN ---
Assessment & Plan Assessment/Plan (1) Cellulitis of finger of right hand: PLAN: Wound cx with mssa. MRI showed no osteo or abscess. Ok for home with 10 days po doxy and keflex. Will follow, thank you, d/w Dr. Cadet HPI Consult Data Date of Consult: 11/20/23 HPI Narrative Reason for Consultation: finger infection HPI Narrative: ARSENIO JUAREZ, is a 38 M, R handed, presented 10/19/23 after crush injury to R 5th finger. Given tetanus shot, taken to OR that day by Dr. Calix for I&D of small finger tuft open fracture. Was doing well until 11/14 with progressive pain, redness, swelling, drainage. No fever or chills. 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 Admitted 11/17, now wound cx with mssa. On vanc/cipro, feeling better, pain and ROM improved. Full ROS performed and neg except as noted above. [facility] Medical History Laceration Home Medications ?Medication ?Instructions ?Recorded ?Last Taken ?Type tramadol 50 mg tablet 50 mg PO TID pain 04/07/20 04/07/20 History testosterone cypionate 200 mg/mL 200 mg IM .Monday04/08/20 04/06/20 History intramuscular oil hormones lisinopril 10 mg tablet 20 mg PO DAILY 11/10/23 Unknown History anastrozole 1 mg tablet 1 mg PO .Monday11/17/23 Unknown History dupilumab 300 mg/2 mL subcutaneous 200 mg subcut .every 2 weeks 11/17/23 11/10/23 History pen injector (Dupixent) cephalexin 500 mg capsule 500 mg PO 4X/DAY 10 days #40 caps 11/20/23 Unknown Rx doxycycline hyclate 100 mg capsule 100 mg PO BID 10 days #20 caps 11/20/23 Unknown Rx Allergy/AdvReac Type Severity Reaction Status Date / Time NSAIDS (Non-Steroidal Allergy Rash Verified 11/17/23 16:26 Anti-Inflamma poison [place] extract Allergy Hives Verified 11/17/23 16:26 ibuprofen AdvReac Other Verified 11/17/23 16:26 Social History Smoking Status: Never smoker Smokeless tobacco user: chewing tobacco alcohol intake: never substance use type: does not use Physical Exam Const alert, oriented x3 and no apparent distress General Appearance: cooperative HEENT normocephalic and head/scalp atraumatic Eyes PERRL and EOMs intact bilaterally Neck supple and No nodes Resp normal air movement and clear to auscultation bilaterally Cardio regular rate and regular rhythm GI soft to palpation, non-tender and non-distended Extremity General Extremity: Negative for edema Skin Skin Narrative: R 5th finger some redness, warmth, swelling Neuro CN's II-XII intact bilaterally Lab / Micro Data Attestation: I reviewed the patient's lab results. 11/19/23 06:30 11/20/23 05:43 Labs: Laboratory Results - last 24 hr 11/18/23 06:35: Hemoglobin A1c 7.9 H 11/19/23 12:34: POC Glucose 159 H 11/19/23 17:35: POC Glucose 141 H 11/19/23 21:43: POC Glucose 162 H 11/20/23 05:43: Sodium 138, Potassium 3.7, Chloride 104, Carbon Dioxide 28.0, Anion Gap 6, BUN 9, Creatinine 1.46 H, Estim Creat Clear Calc 94.31, Est GFR (MDRD) Af Amer 69, Est GFR (MDRD) Non-Af 57 L, BUN/Creatinine Ratio 6.2 L, Glucose 134 H, Calcium 8.6 11/20/23 06:42: POC Glucose 145 H 11/20/23 09:45: POC Glucose 154 H 11/20/23 11:38: POC Glucose 202 H Micro: Microbiology 11/17/23 17:05 Wound - Finger Gram Stain - Final 11/17/23 17:05 Wound - Finger Wound Culture - Final Staphylococcus aureus 11/17/23 17:05 Wound - Finger Anaerobic Culture - Preliminary Checking for anaerobes, further studies to follow.
[2023-11-20] MEDS: Cefazolin 2 GM in 0.9% Normal Saline (100mL Bag) 100 ML IV ×2 (14:36→21:49)
[2023-11-20 15:22] VITALS: BP 145/98; PULSE 86; RESP 18; TEMP 37; O2SAT 97
--- NOTE | 2023-11-20 15:25 | PN.HOSP_ITS ---
Reason for Visit Reason for Visit: Diagnoses Cellulitis of right finger (11/17/23) Pain in right hand (11/17/23) Hyperglycemia, unspecified (11/17/23) Displaced fracture of distal phalanx of unspecified finger, initial encounter for open fracture (11/17/23) Subjective Subjective Patient was seen and examined today, I had infectious diseases see the patient for consultation, it was recommended that his antibiotic be changed to Ancef 2 g every 8 hours. Plastic surgery does not feel the patient should be discharged at this time and wants to reevaluate the appearance of his finger tomorrow, patient understands this and considered signing out AMA but did not give me a definite answer about this. Infectious diseases recommended outpatient treatment with doxycycline 100 mg twice daily and Keflex 500 mg 4 times daily for 10 days. Objective Data Objective Data Vital Signs: Vital Signs Temp Pulse Resp BP Pulse Ox O2 Del Method 98.6 F 86 18 145/98 H 97 Room Air 11/20/23 15:22 11/20/23 15:22 11/20/23 15:22 11/20/23 15:22 11/20/23 15:22 11/20/23 15:22 Oxygen Delivery Method Room Air Weight: 122.1 kg Body Mass Index (BMI) 34.5 Intake & Output: Intake and Output for Last 24 Hours 11/18/23 11/19/23 11/20/23 23:59 23:59 23:59 Intake Total 3365 / 3365 4625 / 4625 3000 / 3000 Balance 3365 / 3365 4625 / 4625 3000 / 3000 Lab / Micro Data 11/19/23 06:30 11/20/23 05:43 Labs: Laboratory Results - last 24 hr 11/18/23 06:35: Hemoglobin A1c 7.9 H 11/19/23 12:34: POC Glucose 159 H 11/19/23 17:35: POC Glucose 141 H 11/19/23 21:43: POC Glucose 162 H 11/20/23 05:43: Sodium 138, Potassium 3.7, Chloride 104, Carbon Dioxide 28.0, Anion Gap 6, BUN 9, Creatinine 1.46 H, Estim Creat Clear Calc 94.31, Est GFR (MDRD) Af Amer 69, Est GFR (MDRD) Non-Af 57 L, BUN/Creatinine Ratio 6.2 L, G lucose 134 H, Calcium 8.6 11/20/23 06:42: POC Glucose 145 H 11/20/23 09:45: POC Glucose 154 H 11/20/23 11:38: POC Glucose 202 H Micro: Microbiology 11/17/23 17:05 Wound - Finger Gram Stain - Final 11/17/23 17:05 Wound - Finger Wound Culture - Final Staphylococcus aureus 11/17/23 17:05 Wound - Finger Anaerobic Culture - Preliminary Checking for anaerobes, further studies to follow. Physical Exam Const alert, oriented x3, no apparent distress and healthy appearing General Appearance: cooperative, well kempt and well developed Orientation / Consciousness: awake, oriented to person, oriented to place and oriented to time HEENT normocephalic, head/scalp atraumatic and moist oral mucous membranes Eyes PERRL, EOMs intact bilaterally and conjunctivae normal Neck supple, no JVD, thyroid normal and no carotid bruits General: trachea midline Resp normal respiratory effort and clear to auscultation bilaterally Auscultation: Negative for rales, rhonchi or wheezes Cardio regular rate, regular rhythm, no murmurs, no rub and no gallops GI normal to inspection, nondistended, normoactive bowel sounds, soft to palpation, non-tender and non-distended Skin Skin Narrative: There is some redness and swelling of the patient's right fifth ray noted today Neuro oriented x3, CN's II-XII intact bilaterally, moves all extremities, no focal motor deficits and no sensory deficits noted Sensorium / Orientation: awake and alert Speech: speech normal Psych affect normal Assessment & Plan Assessment/Plan (1) Cellulitis of finger of right hand: PLAN: Plan 1. Cellulitis of the right fifth ray-continue antibiotics per infectious diseases and care per plastic surgery. #2 type 2 diabetes-patient does not want to be discharged on insulin when he goes home, I have elected to place him on metformin and Amaryl, he will need follow-up with his PCP next week, I told the patient he must buy glucose monitor and keep tabs of his sugars and write them down for his family physician when he sees him in the office. Total clinical time spent by myself addressing the patient's medical issues, reviewing all of his data, and collaborating with patient's care team: 35 minutes Charges/Coding Visit Charges Inpatient E&M: 13504 Subs Hosp L2
[2023-11-20] MEDS: Lactated Ringers 1,000 ML 75 ML IV (15:28)
[2023-11-20] MEDS: Glimepiride 2 MG Tablet PO (16:19)
[2023-11-20 16:54] LABS: Bedside Glucose 115 mg/dL (74-106)
[2023-11-20] MEDS: metFORMIN HCl 850 MG Tablet PO (17:17)
[2023-11-20] MEDS: Acetaminophen 500 MG Tablet PO (18:15)
[2023-11-20 21:47] VITALS: BP 143/84; PULSE 84; RESP 18; TEMP 36.4; O2SAT 99
[2023-11-20 23:03] LABS: Bedside Glucose 122 mg/dL (74-106)
[2023-11-20 23:19] LABS: Bedside Glucose 97 mg/dL (74-106)
[2023-11-21 01:15] LABS: Bedside Glucose 183 mg/dL (74-106)
[2023-11-21 05:30] VITALS: BP 125/76; PULSE 90; RESP 16; TEMP 36.4; O2SAT 100
[2023-11-21] MEDS: Lactated Ringers 1,000 ML 75 ML IV (05:32)
[2023-11-21] MEDS: Cefazolin 2 GM in 0.9% Normal Saline (100mL Bag) 100 ML IV (05:33)
[2023-11-21] MEDS: Acetaminophen 500 MG Tablet PO (05:35)
[2023-11-21 07:00] LABS: Bedside Glucose 151 mg/dL (74-106)
[2023-11-21 08:31] LABS: Anion Gap 4 (5-15); BUN 11 mg/dL (7-18); BUN/Creat Ratio 7.5 RATIO (10-20); Calcium,Total 8.5 mg/dL (8.5-10.1); Chloride 105 mmol/L (98-107); Creatinine, Serum 1.47 mg/dL (0.70-1.30); EST Glomerular Filtration Rate 57 mL/min (>60); Est Glom Filt Rate - Afr Amer 69 mL/min (>60); Estimated Creatinine Clearance 93.67 ml/min; Glucose 143 mg/dL (74-106); Potassium 3.6 mmol/L (3.5-5.1); Sodium Level 137 mmol/L (136-145)
--- NOTE | 2023-11-21 08:59 | DS.PCM_ITS ---
Providers Date of Admission: 11/17/23 Primary Care Physician: Dr. Celestino Rodriges MD Consultations 11/20/23 10:47 Consult: Infectious Disease Routine Consulting Provider: Guido Lopez Reason for Consult: cellulitis right little finger EMERGENT Consult: No MD Notified: Yes Date Notified: 11/20/23 Time Notified: 10:48 Method of Notification: Verbal Reason For Visit: CELLULITIS RIGHT SMALL FINGER Diagnosis Discharge Diagnosis (1) Cellulitis of finger of right hand: Status: Acute Code(s): L03.011 - Cellulitis of right finger Plan: Pain: Continue Tylenol scheduled and Roxicodone 5 mg PO as needed Q4 Cardiovascular: Restarted Lisinopril per medicine consult. Resp: IS Abdomen: Miralax for constipation : No concerns at this time Endocrine: High sugars (200s and low 300s). Placed on sliding scale and have ordered and A1c (pending). Medicine consultation started patient on Glargine as well. Nutrition consult. Also restarting home testosterone per medicine consult. FEN: Diabetic Diet, IVF 75 cc LR . Daily BMPs (F/u labs from today) Infectious Disease: Staphylococcus on preliminary cultures, continue broad- spectrum antibiotics (Vanc and Zosyn) for now until speciates (around farm animals so will keep Zosyn through the day until more time for cultures to grow). Right small finger x-ray reviewed, no change, no signs of cortical erosions/osteo. Medicine ordered MRI - no signs of osteomyelitis. Elevate right hand above heart and do Dial soap soaks TID. Also will discuss the thrush with medicine team (appropriateness of Diflucan v another agent in setting of kidney disease, ect.) Renal: Daily BMPs (F/u - results pending) Appreciate consultation services from Internal Medicine, Dr. Blankenship. Medications at Discharge Home Medications tramadol 50 mg tablet 50 mg PO TID pain 04/07/20 testosterone cypionate 200 mg/mL intramuscular oil 200 mg IM .Monday hormones 04/08/20 lisinopril 10 mg tablet 20 mg PO DAILY 11/10/23 anastrozole 1 mg tablet 1 mg PO .Monday11/17/23 dupilumab 300 mg/2 mL subcutaneous pen injector (Dupixent) 200 mg subcut .every 2 weeks 09/06/24 cephalexin 500 mg capsule 500 mg PO 4X/DAY 10 days #40 caps 11/20/23 doxycycline hyclate 100 mg capsule 100 mg PO BID 10 days #20 caps 11/20/23 Hospital Course Summary of Care Provided Minutes Spent on Discharge: 30 Hospital Course: Jose Hutchinson was admitted to the hospital on 17 November 2023 for a right small finger cellulitis. He was placed on broad-spectrum antibiotics and internal medicine was consulted for hypertension, type 2 diabetes, and chronic kidney disease. We follow the recommendations which included tight glucose control with adding basal insulin. I talked to the patient extensively about following up with his primary care provider for his diabetes (A1c was 7.9). They also ordered an MRI which did not demonstrate any abscesses or signs of osteomyelitis. His finger improved clinically and his range of motion improved. There was no drainage from the volar finger wound that was associated with the cellulitis and cultured in clinic. The cultures grew methicillin susceptible Staph aureus and he was placed on Keflex and doxycycline by an infectious disease consultation for a 10-day course. Upon the date of discharge on 21 November 2023, his redness and swelling was improving. He was appropriate for discharge. I talked him about tobacco cessation and keeping the finger covered. He will continue Dial soap soaks as the volar wound heals. Physical Exam Narrative RIGHT Upper extremity: Right ring finger examined TTP over the volar surface and eponychial fold, which is where the redness is most present. No redness/induration at the palm. No signs of ascending infection. Overall the redness is improved and his range of motion has improved. No pain over the A1 laly of the RSF and no pain with flexor tendon excursion. No drainage from scab/opening. Const alert and oriented x3 Eyes EOMs intact bilaterally Lymph Lymphatic: no lymphadenopathy noted Resp normal respiratory effort Cardio regular rate and regular rhythm Weight / BMI Weight Weight: 269 lb 2.951 oz Body Mass Index (BMI) 34.5 ABG / Lab / Microbiology Data 11/19/23 06:30 11/21/23 06:46 Laboratory: Laboratory Results - last 24 hr 11/20/23 09:45: POC Glucose 154 H 11/20/23 11:38: POC Glucose 202 H 11/20/23 16:36: POC Glucose 115 H 11/20/23 21:40: POC Glucose 122 H 11/20/23 22:55: POC Glucose 97 11/21/23 00:56: POC Glucose 183 H 11/21/23 06:42: POC Glucose 151 H 11/21/23 06:46: Sodium 137, Potassium 3.6, Chloride 105, Carbon Dioxide 28.0, A nion Gap 4 L, BUN 11, Creatinine 1.47 H, Estim Creat Clear Calc 93.67, Est GFR (MDRD) Af Amer 69, Est GFR (MDRD) Non-Af 57 L, BUN/Creatinine Ratio 7.5 L, G lucose 143 H, Calcium 8.5 Microbiology: Microbiology 11/17/23 17:05 Wound - Finger Gram Stain - Final 11/17/23 17:05 Wound - Finger Wound Culture - Final Staphylococcus aureus 11/17/23 17:05 Wound - Finger Anaerobic Culture - Final No anaerobic bacteria isolated. Meaningful Use Info Meaningful Use Meaningful Use Diagnoses (Choose all that apply): None applicable Ischemic Stroke Statin Dosing Therapy Reference: STATIN DOSE THERAPY REFERENCE: * Patients > 75 years receive moderate or high dose statin therapy. * Patients 75 years or YOUNGER should receive HIGH intensity statin dose unless contraindicated. You will be required to document reason for non-treatment if statin daily dose does not meet guidelines. HIGH DOSE STATIN THERAPY DAILY Atorvastatin > than or = to 40 mg Rosuvastatin > than or = to 20 mg Amlodipine + Atorvastatin > than or = to 2.5/40 mg Ezetimibe + Simvastatin 10/80 mg Simvastatin 80mg Discharge Plan Admission Admit Date/Time: 11/17/23 17:04 Attending Provider: Guido Calix Primary Care Provider: Celestino Rodriges Consulting Providers: Xiomara Castro NP; Jalen Cadet; Guido Lopez Instructions Additional Instructions / Restrictions: Instructions for My Care at Home or Healthcare Facility The following instructions will help you know what to expect in the days following surgery. These are general instructions. Your surgeon and therapist may give you special instructions, which vary to some degree based on your specific procedure -- follow those as directed. Do not, however, hesitate to call if you have any questions or concerns. Splint Care/Dressing Care/Wound Care * Three times per day dial soap soaks then dry dressing * Keep the finger covered * Do not submerge in a hot tub or any water other than for the dial soap soaks Activities * For the first 4 weeks after surgery, try to balance your activity, allowing time for rest. * Avoid lifting, pushing, or pulling anything over 5 pounds. * Do not drive or operate heavy machinery within 24 hrs of surgery or while taking narcotic pain medication.? Pain Control/Medications * Home medications for pain * Make sure to take the Doxycycline and the Kelfex Diet (what I can eat): Low carb diet Follow up * You will be seen (most likely) on Follow-up appointment reminders:? (A list of any scheduled appointments is at the end of this document)? At your earliest convenience, please call [phone] to confirm/schedule a follow-up appointment with [ ] in clinic. When to call your surgeon: * If any signs of surgical site infection develop: redness, pus, pain, increased swelling or foul odor at the incision site, fever, cold and clammy skin, or confusion. * Consistent temperature above 101?F (38.3?C). * The affected area gets swollen or much more painful. * You have excessive bleeding from surgical site (soaking through). If you experience difficulty breathing and/or shortness of breath, seek immediate medical attention. If experiencing any of the above complications or if you have any questions, call [phone] Discharge Orders/Prescriptions Prescriptions: New cephalexin 500 mg capsule 500 mg PO 4X/DAY 10 Days Qty: 40 0RF doxycycline hyclate 100 mg capsule 100 mg PO BID 10 Days Qty: 20 0RF No Action lisinopril 10 mg tablet 20 mg PO DAILY tramadol 50 MG tablet 50 mg PO TID testosterone cypionate 200 MG/ML oil 200 mg IM .Monday Dupixent Pen 300 mg/2 mL pen injector 200 mg subcut .every 2 weeks anastrozole 1 mg tablet 1 mg PO .Monday Referrals / Follow Up: Celestino Rodriges MD [Primary Care Provider] - Disposition Disposition (needs filled in before D/C Order can be placed): Home, Self Care Charges/Coding Visit Charges Inpatient E&M: 97283 Disch Hosp
[2023-11-21 09:06] VITALS: BP 135/88; PULSE 81; RESP 18; TEMP 36.6; O2SAT 98
[2023-11-21] MEDS: Lisinopril 20 MG Tablet PO (09:12)
[2023-11-21] MEDS: Glimepiride 2 MG Tablet PO (09:14)
[2023-11-21] MEDS: metFORMIN HCl 850 MG Tablet PO (09:14)
--- NOTE | 2023-11-21 09:32 | CASEMGMT ---
Pt nurse made aware pt is ready to dc after eating breakfast. She reports pt has been doing own dial soaks. RN CM into pt room, pt denies any homegoing needs. He is comfortable with wound care. Pt states he will get a BGM at the pharmacy and declines the need for a rx for this.
--- NOTE | 2023-11-21 10:29 | PCM.PN.ID ---
Physical Exam Narrative Finger is a little better, less sore, no fever, no drainage Const alert and no apparent distress General Appearance: cooperative Resp normal air movement and clear to auscultation bilaterally Cardio regular rate and regular rhythm GI soft to palpation, non-tender and non-distended Skin Skin Narrative: R finger less red, slightly improved ROM ID ID: Route of nutrition/ use of supplements: [] Nutritional Intake: [] IV Site: [] Medina Catheter: [] Assessment & Plan Assessment/Plan (1) Cellulitis of finger of right hand: PLAN: Wound cx with mssa. MRI showed no osteo or abscess. Ok for home with 10 days po doxy and keflex. Will follow as needed
== END 2023-11-21 09:59 | disposition home or self-care (01) | DRG 638 ==
PROVIDERS: Internal Medicine; Nurse Practitioner Family; Admitting Provider Surgery Plastic and Reconstructive Surgery; PCP Family Medicine; Referring Provider Surgery Plastic and Reconstructive Surgery; Visit Provider Surgery Plastic and Reconstructive Surgery
DX: E11.628 Type 2 diabetes mellitus with other skin complications (principal); E23.0 Hypopituitarism; B95.61 Methicillin susceptible Staphylococcus aureus infection as the cause of diseases classified elsewhere; E11.40 Type 2 diabetes mellitus with diabetic neuropathy, unspecified; E11.22 Type 2 diabetes mellitus with diabetic chronic kidney disease; E11.65 Type 2 diabetes mellitus with hyperglycemia; N18.31 Chronic kidney disease, stage 3a; I12.9 Hypertensive chronic kidney disease with stage 1 through stage 4 chronic kidney disease, or unspecified chronic kidney disease; E66.9 Obesity, unspecified; G47.33 Obstructive sleep apnea (adult) (pediatric); J30.9 Allergic rhinitis, unspecified; K59.00 Constipation, unspecified; Z98.2 Presence of cerebrospinal fluid drainage device; L03.011 Cellulitis of right finger; Z68.34 Body mass index [BMI] 34.0-34.9, adult
CPT/HCPCS: 36415; 73140; 73220; 80048; 80053; 80202; 82962; 83036; 83735; 84100; 85025; 87070; 87075; 87077; 87186; 87205; 97802; 97803; 99406; A9575; J7040; J7050; J7120; A4216; J0744

== ENCOUNTER → 2024-01-03 | Outpatient (CLI) | payer OTHER, SELFPAY ==
--- NOTE | 2024-01-03 15:15 | RAD_ITS ---
EXAM: XR RIGHT HAND COMPLETE, 3 OR MORE VIEWS CLINICAL INDICATION: right hand cellulitis TECHNIQUE: Frontal, lateral and oblique views of the right hand. COMPARISON: 11/18/2023 FINDINGS: BONES/JOINTS: There is no change in the fracture of the distal fifth phalanx. Preservation of the joint space. No sclerotic or destructive changes observed. SOFT TISSUES: There is questionable swelling of the thenar eminence. No radiopaque foreign body. RAD/Hand Min 3 Views IMPRESSION: 1. No change in the fracture the distal fifth phalanx. 2. Swelling of the thenar eminence. No radiopaque foreign bodies are seen. Electronically Signed: Zach Adame MD at 0:05 EDT ,
== END | disposition home or self-care (01) ==
LOC: RAD 15:12
PROVIDERS: PCP Family Medicine; Referring Provider Surgery Plastic and Reconstructive Surgery; Visit Provider Surgery Plastic and Reconstructive Surgery
DX: L03.011 Cellulitis of right finger (principal); S62.639B Displaced fracture of distal phalanx of unspecified finger, initial encounter for open fracture
CPT/HCPCS: 73130

== ENCOUNTER → 2024-02-19 | Outpatient (CLI) | payer OTHER, SELFPAY ==
--- NOTE | 2024-02-19 13:42 | ECHOD_ITS ---
Version 2 Reason For Study: HYPERTENSION Procedure This was a 2D Doppler, Color Flow transthoracic echocardiogram. Myocardial strain analysis was performed in this exam to aid in the assessment of cardiac function. Exam performed in department. Left Ventricle Normal LV size. Mild concentric left ventricular hypertrophy. The global longitudinal strain = -18.9 % (normal). The left ventricular ejection fraction is 60 %. No regional wall motion abnormalities noted. Right Ventricle Normal RV size. Normal systolic function. Atria Normal left atrium. Normal right atrium. Aortic Valve Normal aortic valve. Trisinus/trileaflet aortic valve. Pulmonic Valve Normal pulmonic valve. Great Vessels Normal aortic root. The pulmonary artery is normal size. Inferior vena cava collapse with sniff. Pericardium/Pleural No pericardial effusion. MMode/2D Measurements & Calculations LVIDd: 5.3 cm IVSd: 1.3 cm LVOT diam: 2.3 cm LVIDs: 3.3 cm LVPWd: 1.2 cm LVOT area: 4.3 cm2 RVDd: 3.7 cm FS: 37.9 % asc Aorta Diam: 3.6 cm LAV(MOD-bp): 41.8 ml LVAd ap4: 27.5 cm2 LAV(MOD-bp) Indexed: 16.8 ml/m2 LVLd ap4: 8.3 cm LAV(MOD-sp2): 44.1 ml EDV(MOD-sp4): 80.9 ml LAV(MOD-sp4): 39.6 ml EDV(sp4-el): 77.3 ml LVAs ap4: 16.0 cm2 LVLs ap4: 7.1 cm ESV(MOD-sp4): 30.5 ml ESV(sp4-el): 30.5 ml EF(MOD-sp4): 62.3 % EF(sp4-el): 60.6 % SV(MOD-sp4): 50.4 ml SV(MOD-sp2): 40.2 ml LVAd ap2: 25.7 cm2 LVLd ap2: 8.4 cm SI(MOD-sp4): 20.3 ml/m2 SI(MOD-sp2): 16.2 ml/m2 EDV(MOD-sp2): 63.7 ml EDV(sp2-el): 66.9 ml LVAs ap2: 13.3 cm2 LVLs ap2: 6.5 cm ESV(MOD-sp2): 23.5 ml ESV(sp2-el): 23.3 ml EF(MOD-sp2): 63.1 % SV(sp4-el): 46.8 ml Ao sinus diam: 3.[address] Junction: 3.0 cm LA A4 area: 15.6 cm2 LA dimension(2D): 3.8 cm RA A4 area: 14.1 cm2 TAPSE: 2.1 cm Time Measurements MV dec time: 0.17 sec Doppler Measurements & Calculations MV E max allen: 83.7 cm/sec Lat Peak E' Allen: 13.1 cm/sec Med Peak E' Allen: 14.6 cm/sec MV A max allen: 77.4 cm/sec E/E' lat: 6.4 E/E' med: 5.7 MV E/A: 1.1 Ao V2 max: 149.6 cm/sec LV V1 max: 128.7 cm/sec MV dec slope: 506.3 cm/sec2 Ao max P.9 mmHg LV V1 max P.6 mmHg Ao V2 mean: 108.1 cm/sec LV V1 mean P.0 mmHg Ao mean P.2 mmHg LV V1 mean: 95.0 cm/sec Ao V2 VTI: 23.1 cm LV V1 VTI: 20.9 cm AV (velocity ratio): 0.90 DAJUAN(I,D): 3.9 cm2 DAJUAN(V,D): 3.7 cm2 SV(LVOT): 90.5 ml PA V2 max: 98.6 cm/sec ECHO/Echo Complete Interpretation Summary Normal LV size. The global longitudinal strain = -18.9 % (normal). No regional wall motion abnormalities noted. The left ventricular ejection fraction is 60 %. Mild concentric left ventricular hypertrophy. Structurally normal valves. Ordering Physician: Rudy Lopez Referring Physician: Celestino Rodriges Performed By: Cori Barraza RDCS
== END | disposition home or self-care (01) ==
LOC: CVS 13:42
PROVIDERS: PCP Family Medicine; Referring Provider Internal Medicine Cardiovascular Disease; Visit Provider Internal Medicine Cardiovascular Disease
DX: I10 Essential (primary) hypertension (principal)
CPT/HCPCS: 93306

== ENCOUNTER → 2024-04-18 | Outpatient (CLI) | payer OTHER, SELFPAY ==
--- NOTE | 2024-04-18 16:20 | RAD_ITS ---
PROCEDURE: FINGER(S) MIN 2 VIEWS REASON FOR EXAM: Pain TECHNIQUE: 3 view(s) of the right 5th digit COMPARISON: Radiograph of the right hand dated January 03, 2024 FINDINGS: Redemonstration of a comminuted fracture of the distal phalanx, this is unchanged when compared to the prior study. Normal alignment. Soft tissues are unremarkable. RAD/Finger(s) Min 2 Views IMPRESSION: Redemonstration of a comminuted fracture involving the distal phalanx of the 5t h digit. Reading Location: [facility]
== END | disposition home or self-care (01) ==
LOC: RAD 16:12
PROVIDERS: PCP Nurse Practitioner Family; Referring Provider Surgery Plastic and Reconstructive Surgery; Visit Provider Surgery Plastic and Reconstructive Surgery
DX: L03.011 Cellulitis of right finger (principal)
CPT/HCPCS: 73140

== ENCOUNTER 2024-05-08 11:31 | Day surgery (SDC) | payer OTHER, SELFPAY ==
--- NOTE | 2024-05-02 13:14 | PAT.ANE_ITS ---
Pre-Assessment Diagnosis/Proposed Procedure Planned Operative Procedure(s): EXCISION NAIL BED POSS SKIN GRAFT RIGHT LITTLE FINGER Anesthesia History Anesthesia History - rn emergency room: Anesthesia History - rn emergency room Hx Hospitalization Yes: 11/2023 FOR FINGER 05/02/24 11:06 INFECTION Any Problems With Anesthesia No 05/02/24 11:06 Cholinesterase deficiency No 05/02/24 11:06 You/Your Family Experience No 05/02/24 11:06 fever (hyperthermia) with Relationship Recent Exposure to Contagious Disease Does patient have nerve No 05/02/24 11:06 stimulator Patient instructed to have device shut off --Does patient have Pacemaker or ICD? When Was Last Pacemaker Check QUESTION #4 FULL TEXT: You/Your Family Experience fever (hyperthermia) with Anesthesia Last Oral Intake Last Oral intake: Last Oral Intake NPO since Meds taken in AM with sips of water? Meds patient instructed to take am of surgery PONV PONV - rn emergency room: PONV - rn emergency room Female No 05/02/24 11:06 HX of Motion Sickness No 05/02/24 11:06 HX of N/V After Surgery No 05/02/24 11:06 Non-Smoker No 05/02/24 11:06 Duration of Surgery greater Yes 05/02/24 11:06 than 60 minutes Number of Risk Factors 1 05/02/24 11:06 PONV Score Low Risk 05/02/24 11:06 Height & Weight Height & Weight: Anesthesia: Height & Weight Height 6 ft 2 in 04/18/24 15:45 Respiratory Assessment Respiratory Assessment - rn emergency room: Respiratory Tract Infection Hx - rn emergency room Hx Respiratory Tract Infection No 05/02/24 11:06 STOP Sleep Apnea STOP Sleep Apnea - rn emergency room: STOP Sleep Apnea - rn emergency room Hx Hypertension Yes: CONTROLLED WITH MED 05/02/24 11:06 Hx Sleep Apnea No 05/02/24 11:06 CPAP No 11/22/23 10:50 BIPAP Yes: sometimes does not wear 11/22/23 10:50 it Do you snore loudly (louder Yes 05/02/24 11:06 than talking or can be heard Do you often feel tired/ No 05/02/24 11:06 fatigued/ sleepy during daytime? Has anyone observed you stop No 05/02/24 11:06 breathing during sleep? STOP Results Positive 05/02/24 11:06 QUESTION #5 FULL TEXT : Do you snore loudly (louder than talking or can be heard through closed doors)? 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 confused, unrespo /Reproduction History /Reproductive History - rn emergency room: /Reproductive Hx- rn emergency room Hx Now No 05/02/24 11:06 Gestational Age (in weeks): EDC: Hx Hx Para Hx Section SAB No 05/02/24 11:06 [facility] Medical History (Updated 05/02/24 @ 11:34 by Bridget Zimmerman) Hydrocephalus Pituitary deficiency Cyst, arachnoid Tinnitus of both ears Loss of hearing History of renal disease Diabetes High cholesterol Migraine headache Chewing tobacco dependence Meningitis Hypertension Cardiology follow-up encounter History of echocardiogram Afib Laceration Home Medications ?Medication ?Instructions ?Recorded ?Last Taken ?Type tramadol 50 mg tablet 50 mg PO TID pain 04/07/20 0 04/07/20 History testosterone cypionate 200 mg/mL 200 mg IM hormon es 04/08/20 04/06/20 History intramuscular oil anastrozole 1 mg tablet 1 mg PO SUWE 11/17/23 Unknow n History dupilumab 300 mg/2 mL subcutaneous 200 mg subcut .ever y 2 weeks 11/17/23 11/10/23 History pen injector (Dupixent) metformin 500 mg tablet 500 mg PO DAILY #7 tabs 11/11 Unknown Rx multivitamin 1 tab PO QAM 12/11/23 Unknow n History lisinopril 10 mg tablet 10 mg PO DAILY #1 TAB Unknown Rx albuterol sulfate 90 mcg/actuation 2 puff inhalation Q 4H PRN PRN 05/02/24 Unknown History aerosol inhaler shortness of breath or wheez ing atorvastatin 40 mg tablet 40 mg PO DAILY 05/02/24 Unkn own History Allergy/AdvReac Type Severity Reaction Status Date / Time NSAIDS (Non-Steroidal Allergy Rash Verified 05/02/24 11:02 Anti-Inflamma poison amalia extract Allergy Hives Verified 05/02/24 11:02 ibuprofen AdvReac Other Verified 05/02/24 11:02 Surgical History (Updated 05/02/24 @ 11:30 by Bridget Zimmerman) Hx of appendectomy Hx of craniotomy Social History Smoking Status: Current every day smoker tobacco type: smokeless tobacco Smokeless tobacco user: chewing tobacco alcohol intake: never substance use type: does not use Audit: Pertinent Findings Pertinent Findings EKG Perinent findings: NSR Echo (EF%) pertinent findings: EF of 60% Additional pertinent findings: Echo 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
[2024-05-08] VITALS (10 sets, daily range): BP systolic 127–153; BP diastolic 74–97; PULSE 71–82; RESP 16; TEMP 36.2–36.9; O2SAT 96–100; BMI 33.9
--- NOTE | 2024-05-08 09:00 | PCM.HP.STD ---
HPI - General HPI Narrative ARSENIO JUAREZ is a 38 YO male with past medical history including type 2 diabetes who sustained a crush injury to his right small finger in October 2024, including a distal tuft fracture/nailbed laceration. He was lost to follow-up but returned with concerns of distal nailbed pain from an ingrown nail. He was diagnosed with a pincer deformity. I talked to him extensively about the risks, benefits, and alternatives of surgery to attempt to correct this deformity. He elected to proceed with surgery. Current Encounter (DATE OF SURGERY H&P UPDATE): I saw and examined the patient this morning in pre-operative holding. We discussed risks and benefits of today's surgery and they would like to proceed. NO CHANGE in health history since last seen and evaluated. Ready to proceed with surgery. [facility] Medical History Hydrocephalus Pituitary deficiency Cyst, arachnoid Tinnitus of both ears Loss of hearing History of renal disease Diabetes High cholesterol Migraine headache Chewing tobacco dependence Meningitis Hypertension Cardiology follow-up encounter History of echocardiogram Afib Laceration Home Medications ?Medication ?Instructions ?Recorded ?Last Taken ?Type tramadol 50 mg tablet 50 mg PO TID pain 04/07/20 04/07/20 History testosterone cypionate 200 mg/mL 200 mg IM SUWE hormones 04/08/20 04/06/20 History intramuscular oil anastrozole 1 mg tablet 1 mg PO SUWE 11/17/23 Unknown History dupilumab 300 mg/2 mL subcutaneous 200 mg subcut .every 2 weeks 11/17/23 11/10/23 History pen injector (Dupixent) metformin 500 mg tablet 500 mg PO DAILY #7 tabs 11/21/23 Unknown Rx multivitamin 1 tab PO QAM 12/11/23 Unknown History lisinopril 10 mg tablet 10 mg PO DAILY #1 TAB 02/19/24 Unknown Rx albuterol sulfate 90 mcg/actuation 2 puff inhalation Q4H PRN PRN 05/02/24 Unknown History aerosol inhaler shortness of breath or wheezing atorvastatin 40 mg tablet 40 mg PO DAILY 05/02/24 Unknown History cephalexin 500 mg capsule 500 mg PO Q8H 7 days #21 caps 05/08/24 Unknown Rx oxycodone 5 mg tablet 5 mg PO Q8H PRN pain 5 days #14 05/08/24 Unknown Rx tabs Allergy/AdvReac Type Severity Reaction Status Date / Time NSAIDS (Non-Steroidal Allergy Rash Verified 05/08/24 11:46 Anti-Inflamma poison amalia extract Allergy Hives Verified 05/08/24 11:46 ibuprofen AdvReac Other Verified 05/08/24 11:46 Surgical History Hx of appendectomy Hx of craniotomy Social History Smoking Status: Never smoker Smokeless tobacco user: chewing tobacco alcohol intake: never substance use type: does not use Physical Exam Narrative Right upper Extremity Inspection: No wounds or any signs of infection. He has an elevated nail on the ulnar side as there is minimal adherence to the sterile matrix, and he has a pincer-nail deformity on the radial side. Palpation: Pain to palpation over the pincer-nail deformity Motor: Able to bend and extend all MP, PIP, and DIP joints. Normal range of motion. 70 degrees DIP flexion on small finger. Sensory: Intact to light touch on the radial and ulnar borders. Vascular: Finger tips are warm and well perfused with <2 second capillary refill. Assessment & Plan Assessment/Plan (1) Pincer nail deformity: PLAN: I talked to the patient extensively about the deformity in the distal sterile matrix on the radial side of the small finger. I talked about treatment options including placement of a dermal autograft between the bone and the sterile matrix, but we talked about the risks of infection with this and it not taking given his diabetes. He is in exquisite pain from this deformity and would like an intervention. I talked him about another option which is to debride some of the underlying tuft portion of the bone and obliterate the sterile matrix in this area as this tissue is stuck down to the bone and causing the nail to grow into it. I talked to him about then advancing some of the fingertip tissue into position where the sterile matrix was present and suturing into the nail in order to improve the deformity. He agreed to proceed with this option. I talked the patient extensively about the risks of surgery, including bleeding, infection (especially in the setting of his diabetes he is at risk for infection and osteomyelitis with the need for revision amputation if the infection worsened), damage to surrounding structures, residual pain, poor scarring, surgical site dehiscence and wound formation, need for wound care, need for repeat operations, failure to obtain the desired result including regrowth of the deformity, DVT/PE (albeit low Caprini), and the risks of anesthesia including , including stroke (from low blood pressure/ischemia or clot), albeit regarding the last 2 we will do with sedation and local and this will mitigate these risks. The benefits and alternatives of this surgery were also discussed. All of their questions were answered, and they agreed to proceed with surgery. INTERVAL H&P PLAN, DATE OF SURGERY: We will proceed with surgery today.
[2024-05-08 12:23] LABS: Bedside Glucose 160 mg/dL (74-106)
--- NOTE | 2024-05-08 12:29 | PCM.PRE.AN2 ---
ASA Classification* ASA Classification ASA Classification: 3 Assessment & Plan Anesthesia* Anesthesia Assessment Anesthesia Assessment: Discussed sedation and/or anesthesia options, risks, benefits, and alternatives with patient/parents/legal guardian/POA. Questions invited. The patient/parents/legal guardian/POA seems to understand and agrees to proceed with anesthesia plan. Reviewed the physical assessment, medical history, allergy history and patient home medications list prior to surgery/procedure/anesthetic and documented any changes. Performed airway and anesthesia risk assessments. Procedural Plan Add'l anesthesia plan details: discussed with the patient that we can do a rescue supraclavicular nerve block for the patient in PACU if his pain is bad. discussed risk of nerve injury, pneumothorax, LAST allergic rxn, lack of efficacy Anesthesia Type Anesthesia Type: MAC History Source History Obtained from:: Patient and Chart Anesthesia Focused Assessment* Temperature: 97.1 F Pulse Rate: 74 Blood Pressure: 142/95 Respiratory Rate: 16 Pulse Ox: 97 Oxygen Delivery Method: Room Air Airway Assessment Mouth opens: >3 cm Mallampati Score: II Teeth Condition: Intact and Caps/Crowns Neck Range of motion (ROM): Full ROM Focused Labs Anesthesia Preop lab: CBC WBC 8.4 K/mm3 (4.4-11.0) 11/19/23 06:30 11/19/23 RBC 5.32 M/mm3 (4.6-6.2) 11/19/23 06:30 11/19/23 Hgb 15.0 g/dL (13.0-16.5) 11/19/23 06:30 11/19/23 Hct 45.3 % (40-54) 11/19/23 06:30 11/19/23 Plt Count 217 K/mm3 (150-450) 11/19/23 06:30 11/19/23 CHEMISTRY Potassium 3.6 mmol/L (3.5-5.1) 11/21/23 06:46 11/21/23 Sodium 137 mmol/L (136-145) 11/21/23 06:46 11/21/23 Magnesium 2.1 mg/dL (1.6-2.6) 11/19/23 06:30 11/19/23 Phosphorus 2.6 mg/dL (2.5-4.9) 11/19/23 06:30 11/19/23 BUN 11 mg/dL (7-18) 11/21/23 06:46 11/21/23 Creatinine 1.47 mg/dL (0.70-1.30) H 11/21/23 06:46 11/21/23 Glucose 143 mg/dL (74-106) H 11/21/23 06:46 11/21/23 POC Glucose 160 mg/dL (74-106) H 05/08/24 11:52 05/08/24 TSH 0.80 uIU/mL (0.358-3.74) 09/23/22 11:55 09/23/22 COAG Pre-Assessment Diagnosis/Proposed Procedure Planned Operative Procedure(s): EXCISION NAIL BED POSS SKIN GRAFT RIGHT LITTLE FINGER Anesthesia History 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 When Was Last Pacemaker Check QUESTION #4 FULL TEXT: You/Your Family Experience fever (hyperthermia) with Anesthesia Last Oral Intake Last Oral intake: Last Oral Intake NPO since 00:00 05/08/24 11:56 Meds taken in AM with sips of No 05/08/24 11:56 water? Meds patient instructed to take am of surgery PONV PONV - director of corporate sales: PONV - director of corporate sales Female No 05/02/24 11:06 HX of Motion Sickness No 05/02/24 11:06 HX of N/V After Surgery No 05/02/24 11:06 Non-Smoker No 05/02/24 11:06 Duration of Surgery greater Yes 05/02/24 11:06 than 60 minutes Number of Risk Factors 1 05/02/24 11:06 PONV Score Low Risk 05/02/24 11:06 Height & Weight Height & Weight: Anesthesia: Height & Weight Height 6 ft 2 in 05/08/24 11:56 Weight: 119.748 kg 05/08/24 11:56 Body Mass Index (BMI) 33.9 05/08/24 11:56 Respiratory Assessment Respiratory Assessment - director of corporate sales: Respiratory Tract Infection Hx - director of corporate sales Hx Respiratory Tract Infection No 05/02/24 11:06 STOP Sleep Apnea STOP Sleep Apnea - director of corporate sales: STOP Sleep Apnea - director of corporate sales Hx Hypertension Yes: CONTROLLED WITH MED 05/02/24 11:06 Hx Sleep Apnea No 05/02/24 11:06 CPAP No 11/22/23 10:50 BIPAP Yes: sometimes does not wear 11/22/23 10:50 it Do you snore loudly (louder Yes 05/02/24 11:06 than talking or can be heard Do you often feel tired/ No 05/02/24 11:06 fatigued/ sleepy during daytime? Has anyone observed you stop No 05/02/24 11:06 breathing during sleep? STOP Results Positive 05/02/24 11:06 QUESTION #5 FULL TEXT : Do you snore loudly (louder than talking or can be heard through closed doors)? 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 confused, unrespo /Reproduction History /Reproductive History - director of corporate sales: /Reproductive Hx- director of corporate sales Hx Now No 05/02/24 11:06 Gestational Age (in weeks): EDC: Hx Hx Para Hx Section SAB No 05/02/24 11:06 Active Medications Active Medications: Current Medications Generic Name Dose Route Start Last Admin Trade Name Freq PRN Reason Stop Dose Admin Cefazolin Sodium 2 gm/ N/A 20 mls @ 400 mls/hr 05/08/24 12:55 IV 05/08/24 12:57 PREOP ONE PFSH Medical History Hydrocephalus Pituitary deficiency Cyst, arachnoid Tinnitus of both ears Loss of hearing History of renal disease Diabetes High cholesterol Migraine headache Chewing tobacco dependence Meningitis Hypertension Cardiology follow-up encounter History of echocardiogram Afib Laceration Home Medications ?Medication ?Instructions ?Recorded ?Last Taken ?Type tramadol 50 mg tablet 50 mg PO TID pain 04/07/20 04/07/20 History testosterone cypionate 200 mg/mL 200 mg IM SUWE hormones 04/08/20 04/06/20 History intramuscular oil anastrozole 1 mg tablet 1 mg PO SUWE 11/17/23 Unknown History dupilumab 300 mg/2 mL subcutaneous 200 mg subcut .every 2 weeks 11/17/23 11/10/23 History pen injector (Dupixent) metformin 500 mg tablet 500 mg PO DAILY #7 tabs 11/21/23 Unknown Rx multivitamin 1 tab PO QAM 12/11/23 Unknown History lisinopril 10 mg tablet 10 mg PO DAILY #1 TAB 02/19/24 Unknown Rx albuterol sulfate 90 mcg/actuation 2 puff inhalation Q4H PRN PRN 05/02/24 Unknown History aerosol inhaler shortness of breath or wheezing atorvastatin 40 mg tablet 40 mg PO DAILY 05/02/24 Unknown History cephalexin 500 mg capsule 500 mg PO Q8H 7 days #21 caps 05/08/24 Unknown Rx oxycodone 5 mg tablet 5 mg PO Q8H PRN pain 5 days #14 05/08/24 Unknown Rx tabs Allergy/AdvReac Type Severity Reaction Status Date / Time NSAIDS (Non-Steroidal Allergy Rash Verified 05/08/24 11:46 Anti-Inflamma poison amalia extract Allergy Hives Verified 05/08/24 11:46 ibuprofen AdvReac Other Verified 05/08/24 11:46 Surgical History Hx of appendectomy Hx of craniotomy Social History Smoking Status: Never smoker Smokeless tobacco user: chewing tobacco alcohol intake: never substance use type: does not use Review of Systems (Anesthesia) ROS Narrative System reviewed and no additional complaints, except as documented. Physical Exam Const alert and oriented x3 HEENT dentition normal Resp normal respiratory effort, normal air movement and clear to auscultation bilaterally Cardio regular rate Neuro oriented x3
[2024-05-08] MEDS: Cefazolin 2 GM in Syringe IV (12:37)
[2024-05-08] MEDS: Lidocaine 1% (20 ml mdv) 20 ML Vial (12:45)
[2024-05-08] MEDS: Bupivacaine 0.25% 30 ML Vial (12:46)
[2024-05-08] MEDS: Acetaminophen 325 MG Tablet 650 MG PO (14:42)
[2024-05-08] MEDS: oxyCODONE 5 MG Tablet PO (14:42)
--- NOTE | 2024-05-08 15:45 | PCM.POST.ANE ---
Anesthesia: Postop Eval I Current Vital Signs Temperature: 98.5 F Pulse Rate: 71 Blood Pressure: 153/95 Respiratory Rate: 16 Pulse Ox: 99 Oxygen Delivery Method: Room Air Assessment Airway patent: Yes Spontaneous unlabored respirations: Yes Mental status: Awake and Calm nausea: No Vomiting: No Anesthesia Complication: No Fluid Hydration Crystalloid volume administer (ml): 500 Total IV fluid infused: 500 Progress Note Anesthesia document: Postop Eval 1 completed: Yes
--- NOTE | 2024-05-08 15:52 | PCM.POSTANE2 ---
Anesthesia Postop Eval I Sum Postop Eval Completion status Anesthesia document: Postop Eval 1 completed: Yes Anesthesia Postop Eval I Summary Anesthesia Postop Eval I Summary: Anesthesia Postop Eval I: Assessment Summary Airway patent Yes 05/08/24 15:46 Spontaneous unlabored Yes 05/08/24 15:46 respirations Mental status Awake,Calm 05/08/24 15:46 nausea No 05/08/24 15:46 Vomiting No 05/08/24 15:46 Anesthesia Postop Eval I: Fluid Summary Crystalloid volume administer 500 05/08/24 15:46 (ml) Colloids volume administered ( ml) Blood Product volume administered (ml) Total IV fluid infused 500 05/08/24 15:46 Anesthesia Postop Eval I: Summary Notes Anesthesia Complication No 05/08/24 15:46 Anesthesia Complication Comment: Post-operative progress note Anesthesia: Postop Eval II Evaluation Mental status: Awake and Calm Pain Level: 3 nausea: No Vomiting: No Complications Anesthesia Complication: No
--- NOTE | 2024-05-08 16:22 | OP.PCM_ITS ---
Operative Report (Standard) Operative Information Date of Procedure: 05/08/24 Pre-Operative Diagnosis: Pincer nail deformity, right small finger Post-Operative Diagnosis: Same Surgery/Procedure Performed: 1) Excision of nailbed and bone for correction of right small finger pincer nail deformity, 0.5 x 0.5 cm (CPT: 81306) 2) Simple closure of right small finger wound, 1 cm (CPT: 28332) plow holder: Yes Marketing Analytics Manager: Niraj Garcia Tasks completed by construction administrative assistant: Retracting Type of Anesthesia: MAC/Supplemental (10 cc of a 50/50 mixture of 1% lidocaine and 0.25% Marcaine ) RN Documented Start/Stop Times: Operation Date: 05/08/24 12:55 Case Time Into Pre-Op 05/08/24 11:38 Anesthesia Start 05/08/24 12:35 Into Room 05/08/24 12:35 Out of Pre-Op 05/08/24 12:35 Procedure Start 05/08/24 12:57 Procedure End 05/08/24 13:24 Anesthesia End 05/08/24 13:28 Out of Room 05/08/24 13:28 Into Recovery 05/08/24 13:30 Into Phase II Recovery 05/08/24 14:11 Out of Recovery 05/08/24 14:11 Out of Phase II 05/08/24 14:57 Procedure Start Time: 12:57 Procedure Stop Time: 13:24 Select all DRAINS/GRAFTS/IMPLANTS that apply: None Estimated Blood Loss: minimal Specimen collected: No Description of surgery: Indications: Jose Ross is a 38-year-old male with a right small finger pincer nail deformity after a nailbed laceration/tuft fracture secondary to a crush injury in October 2023. Patient was doing quite well until approximately 6 weeks ago when he started having severe pain from the ingrowth of the nail in this area. X-ray demonstrated persistent minimally displaced tuft fracture on the ulnar side of the tuft, but no significant deformity of the tuft on the radial side where the pincer nail was forming. The sterile matrix in this location had been severely injured, however, during the crush injury, and there was minimal soft tissue between the nail and the bone. I talked to him extensively about opti ons, including excision of the tuft and the nail matrix in this location. He agreed with this plan. I talked him about the risks, benefits, and alternatives. Procedure details: Patient was correctly identified in preoperative holding and taken back to the operating room he was administered sedation and a local block as noted above. It was given time to take effect and a turnicot was placed on the right small finger (with care taken to remove it at the end of the case). The nail was gently elevated from the underlying sterile matrix with a Austin elevator. A 15 blade scalpel was used to make an incision along the diseased and scarred sterile matrix on the radial side of the distal nailbed. The nail was trimmed. this tissue was excised as well as the bone on the radial side of the tuft underlying the scarred sterile matrix. Bipolar electrocautery was used to cauterize the sterile matrix on the end and prevent it from rolling under to form another nailbed deformity. This was a total bone and sterile matrix excision of 0.5 x 0.5 cm. Hemostasis was obtained after the turnicot was removed (bipolar electrocautery). Irrisept was placed in the wound for a total irrigation 450 cc followed by normal saline and copious amounts. There was healthy viable sterile matrix and periosteum over the bone, and distally of flap of volar fingertip soft tissue was then advanced into position to approximate the fingertip to the healthy sterile matrix, and this was secured through the nail plate using two interrupted 3-0 nylon sutures through the fingertip skin (nail plate to fingertip skin). There was good approximation between the soft tissues. Xeroform was applied. This was a total simple closure of 1 cm. An AlumaFoam splint was applied as well as [place] and loose Coban. Patient tolerated the procedure well. Postoperative plan: Follow-up with me in clinic in 2 days for wound check. Keep splint on until then. Patient given prescription for 1 week of Keflex 500 mg p .o. 3 times daily. Surgical Findings: Pincer nail deformity, radial side of the small finger Complications Complications: No Admit VTE Documentation VTE Mechan Device Prophylaxis: SCD's
== END 2024-05-08 14:57 | disposition home or self-care (01) ==
LOC: SDC 11:32 → AC 11:35
PROVIDERS: PCP Nurse Practitioner Family; Referring Provider Surgery Plastic and Reconstructive Surgery; Visit Provider Surgery Plastic and Reconstructive Surgery
PROC: (CPT 11044; principal; 2024-05-08 12:45)
DX: L60.8 Other nail disorders (principal); E11.9 Type 2 diabetes mellitus without complications; L60.0 Ingrowing nail; E78.00 Pure hypercholesterolemia, unspecified; Z79.811 Long term (current) use of aromatase inhibitors; I10 Essential (primary) hypertension; Z79.84 Long term (current) use of oral hypoglycemic drugs; F17.220 Nicotine dependence, chewing tobacco, uncomplicated
CPT/HCPCS: 11044; 12001; 01830; 82962; A4216